=== PATIENT | female | born 1950 | race Caucasian/White ===

== ENCOUNTER → 2016-06-09 | Outpatient (CLI) | payer BC ==
[~2016-06-09] MED LIST: CHLR10C; CLD600T; ESCT10T; ESTROGCO.3; MULT1TAB63
--- NOTE | 2016-06-12 18:39 | Diagnostic Imaging Report ---
Bilateral screening mammogram The current study was also evaluated with a Computer Aided Detection (CAD) system. Indication: Screening. No current complaints stated on the questionnaire. COMPARISON: 04/16/12. FINDINGS: The breasts are composed of scattered fibroglandular densities. Bilateral retroglandular symmetric implants are seen without change from the prior exam. There are occasional punctate calcifications seen. Allowing for technique and positional differences, no suspicious change is seen. IMPRESSION: No significant change. ACR BI-RADS Category 2: Benign findings. Result letter will be mailed to the patient. Note: At least 10% of breast cancer is not imaged by mammography. Dictated by: Dictated on workstation # [id number]
== END ==
LOC: RAD 09:53
PROVIDERS: ATTEND Internal Medicine
DX: Z12.31 Encounter for screening mammogram for malignant neoplasm of breast (principal)
CPT/HCPCS: 77067

== ENCOUNTER → 2016-11-30 | Outpatient (CLI) | payer BC ==
[2016-11-30 08:42] LABS: BASOPHILS % (AUTO) 0 % (0-10); EOSINOPHILS # (AUTO) 0.2 10^3/uL (0.0-0.3); EOSINOPHILS % (AUTO) 3 % (0-10); LYMPHOCYTES # (AUTO) 1.8 X 10^3 (1.0-4.0); LYMPHOCYTES % (AUTO) 28 % (12-44); MEAN CORPUSCULAR HEMOGLOBIN 32 PG (25-34); MEAN CORPUSCULAR HGB CONC 33 G/DL (32-36); MEAN CORPUSCULAR VOLUME 98 FL (80-99); MEAN PLATELET VOLUME 10.5 FL (7.4-10.4); MONOCYTES # (AUTO) 0.5 X 10^3 (0.0-1.0); MONOCYTES % (AUTO) 7 % (0-12); NEUTROPHILS # (AUTO) 4.2 X 10^3 (1.8-7.8); NEUTROPHILS % (AUTO) 63 % (42-75); PLATELET COUNT 323 10^3/uL (130-400); RED BLOOD COUNT 4.14 10^6/uL (4.35-5.85); RED CELL DISTRIBUTION WIDTH 13.7 % (10.0-14.5); WHITE BLOOD COUNT 6.7 10^3/uL (4.3-11.0)
[2016-11-30 09:02] LABS: ALANINE AMINOTRANSFERASE 33 U/L (0-55); ANION GAP 8 MMOL/L (5-14); ASPARTATE AMINO TRANSFERASE 21 U/L (5-34); BILIRUBIN,TOTAL 0.4 MG/DL (0.1-1.0); BLOOD UREA NITROGEN 15 MG/DL (7-18); BUN/CREATININE RATIO 19; CARBON DIOXIDE 26 MMOL/L (21-32); CHLORIDE 104 MMOL/L (98-107); CHOLESTEROL 249 MG/DL (< 200); CREATININE SERUM 0.81 MG/DL (0.60-1.30); DIRECT LDL 157 MG/DL (1-129); GFR ESTIMATED > 60; GLUCOSE 109 MG/DL (70-105); POTASSIUM 4.4 MMOL/L (3.6-5.0); SODIUM 138 MMOL/L (135-145); TOTAL PROTEIN 7.8 GM/DL (6.4-8.2); TRIGLYCERIDES 120 MG/DL (<150); VLDL CHOLESTEROL 24 MG/DL (5-40)
[2016-11-30 09:23] LABS: THYROID STIMULATING HORMONE 1.83 UIU/ML (0.35-4.94)
== END ==
LOC: LAB 08:20
PROVIDERS: ATTEND Internal Medicine
DX: E78.00 Pure hypercholesterolemia, unspecified (principal); E03.9 Hypothyroidism, unspecified; R73.9 Hyperglycemia, unspecified
CPT/HCPCS: 36415; 80053; 80061; 83036; 84439; 84443; 85025

== ENCOUNTER → 2017-05-10 | Outpatient (CLI) | payer BC ==
[2017-05-10 15:40] LABS: BILIRUBIN,URINE NEGATIVE (NEGATIVE); CLARITY,URINE CLEAR; COLOR,URINE YELLOW; GLUCOSE, URINE (UA) NEGATIVE (NEGATIVE); KETONES,URINE NEGATIVE (NEGATIVE); LEUKOCYTE ESTERASE ,URINE 1+ (NEGATIVE); NITRITE,URINE NEGATIVE (NEGATIVE); PH,URINE 5 (5-9); PROTEIN,URINE NEGATIVE (NEGATIVE); UROBILINOGEN,URINE NORMAL (NORMAL)
[2017-05-10 15:42] LABS: BASOPHILS % (AUTO) 0 % (0-10); EOSINOPHILS # (AUTO) 0.1 10^3/uL (0.0-0.3); EOSINOPHILS % (AUTO) 1 % (0-10); HEMATOCRIT 40 % (35-52); HEMOGLOBIN 13.4 G/DL (11.5-16.0); LYMPHOCYTES # (AUTO) 2.7 X 10^3 (1.0-4.0); LYMPHOCYTES % (AUTO) 27 % (12-44); MEAN CORPUSCULAR HEMOGLOBIN 33 PG (25-34); MEAN CORPUSCULAR HGB CONC 34 G/DL (32-36); MEAN CORPUSCULAR VOLUME 97 FL (80-99); MEAN PLATELET VOLUME 10.3 FL (7.4-10.4); MONOCYTES # (AUTO) 0.8 X 10^3 (0.0-1.0); MONOCYTES % (AUTO) 8 % (0-12); NEUTROPHILS # (AUTO) 6.5 X 10^3 (1.8-7.8); NEUTROPHILS % (AUTO) 64 % (42-75); PLATELET COUNT 289 10^3/uL (130-400); RED CELL DISTRIBUTION WIDTH 12.8 % (10.0-14.5); WHITE BLOOD COUNT 10.1 10^3/uL (4.3-11.0)
[2017-05-10 15:49] LABS: AMORPHOUS SEDIMENT,UR RARE AMOR URATES /LPF; BACTERIA,URINE FEW /HPF
[2017-05-10 15:59] LABS: ALANINE AMINOTRANSFERASE 25 U/L (0-55); ALBUMIN 4.2 GM/DL (3.2-4.5); ALKALINE PHOSPHATASE 61 U/L (40-136); BILIRUBIN,TOTAL 0.2 MG/DL (0.1-1.0); BUN/CREATININE RATIO 19; CALCIUM 9.4 MG/DL (8.5-10.1); CARBON DIOXIDE 23 MMOL/L (21-32); CHLORIDE 103 MMOL/L (98-107); CREATININE SERUM 0.95 MG/DL (0.60-1.30); GFR ESTIMATED 58; GLUCOSE 94 MG/DL (70-105); POTASSIUM 3.9 MMOL/L (3.6-5.0); SODIUM 137 MMOL/L (135-145); TOTAL PROTEIN 8.1 GM/DL (6.4-8.2)
[2017-05-10 16:03] LABS: ERYTHROCYTE SEDIMENTATION RATE 29 MM/HR (0-30)
== END ==
LOC: CARD 15:12
PROVIDERS: ATTEND Internal Medicine
DX: R07.9 Chest pain, unspecified (principal); G89.29 Other chronic pain; M54.9 Dorsalgia, unspecified; R50.9 Fever, unspecified
CPT/HCPCS: 36415; 80053; 81000; 84484; 85025; 85652; 93005

== ENCOUNTER → 2017-05-24 | Outpatient (CLI) | payer BC ==
[~2017-05-24] MED LIST changes: +BARIUM SUSPENSION 2.1% (VANILLA SILQ) 450 ML PO ONE; +CATHETER FLUSH 10 ML SYR IV PRN; +IOHEXOL 350 MG/ML 100 ML (OMNIPAQUE 350) VIAL IV ONE; +NS 100 ML (IVPB) BAG IV ONE
[2017-05-24 12:57] LABS: BASOPHILS % (AUTO) 0 % (0-10); EOSINOPHILS # (AUTO) 0.1 10^3/uL (0.0-0.3); EOSINOPHILS % (AUTO) 1 % (0-10); HEMATOCRIT 40 % (35-52); HEMOGLOBIN 13.5 G/DL (11.5-16.0); LYMPHOCYTES # (AUTO) 2.6 X 10^3 (1.0-4.0); LYMPHOCYTES % (AUTO) 33 % (12-44); MEAN CORPUSCULAR HEMOGLOBIN 33 PG (25-34); MEAN CORPUSCULAR HGB CONC 34 G/DL (32-36); MEAN CORPUSCULAR VOLUME 96 FL (80-99); MEAN PLATELET VOLUME 10.4 FL (7.4-10.4); MONOCYTES # (AUTO) 0.6 X 10^3 (0.0-1.0); MONOCYTES % (AUTO) 8 % (0-12); NEUTROPHILS # (AUTO) 4.4 X 10^3 (1.8-7.8); NEUTROPHILS % (AUTO) 57 % (42-75); PLATELET COUNT 304 10^3/uL (130-400); RED BLOOD COUNT 4.11 10^6/uL (4.35-5.85); WHITE BLOOD COUNT 7.7 10^3/uL (4.3-11.0)
[2017-05-24 13:16] LABS: ALANINE AMINOTRANSFERASE 29 U/L (0-55); ALBUMIN 4.1 GM/DL (3.2-4.5); ALKALINE PHOSPHATASE 56 U/L (40-136); BILIRUBIN,TOTAL 0.2 MG/DL (0.1-1.0); BUN/CREATININE RATIO 30; CALCIUM 9.9 MG/DL (8.5-10.1); CARBON DIOXIDE 21 MMOL/L (21-32); CHLORIDE 104 MMOL/L (98-107); CREATININE SERUM 0.81 MG/DL (0.60-1.30); GFR ESTIMATED > 60; GLUCOSE 99 MG/DL (70-105); POTASSIUM 4.1 MMOL/L (3.6-5.0); SODIUM 137 MMOL/L (135-145); TOTAL PROTEIN 7.9 GM/DL (6.4-8.2)
[2017-05-24 13:18] LABS: ERYTHROCYTE SEDIMENTATION RATE 29 MM/HR (0-30)
--- NOTE | 2017-05-24 14:37 | Diagnostic Imaging Report ---
PROCEDURE: CT abdomen and pelvis with contrast. TECHNIQUE: Multiple contiguous axial images were obtained through the abdomen and pelvis after administration of intravenous contrast. INDICATION: Generalized abdominal pain and low back pain. Comparison is made with prior CT from 06/04/2012. Lung bases are clear. No discrete liver mass is identified. Gallbladder is unremarkable. The pancreas and spleen are unremarkable. No adrenal mass is detected. The kidneys are unremarkable. Aorta is nonaneurysmal. The small and large bowel loops are normal caliber. There is no ascites. No abdominal or pelvic lymphadenopathy is seen. The bladder is unremarkable. The bony structures are nonacute. There is a tiny fat-containing umbilical hernia. IMPRESSION: Essentially unremarkable CT of the abdomen and pelvis. No acute feature is detected. Dictated by: Dictated on workstation # [id number]
== END ==
LOC: RAD 12:37
PROVIDERS: ATTEND Internal Medicine
DX: R10.84 Generalized abdominal pain (principal); M54.5 Low back pain; Z87.19 Personal history of other diseases of the digestive system
CPT/HCPCS: 36415; 74177; 80053; 85025; 85652

== ENCOUNTER → 2017-06-22 | Outpatient (CLI) | payer BC ==
[~2017-06-22] MED LIST changes: -BARIUM SUSPENSION 2.1% (VANILLA SILQ) 450 ML PO ONE; -IOHEXOL 350 MG/ML 100 ML (OMNIPAQUE 350) VIAL IV ONE; -NS 100 ML (IVPB) BAG IV ONE
[2017-06-22 08:03] VITALS: BP 154/99
--- NOTE | 2017-06-22 19:55 | STRESS TEST ---
DATE OF SERVICE: 06/22/2017 PROCEDURE PERFORMED: Resting and post-exercise technetium-99m Tetrofosmin SPECT CT imaging. ORDERING PHYSICIAN: Tanesha Garner DO. PRIMARY CARE PHYSICIAN: Tanesha Garner DO. CLINICAL DIAGNOSIS: Chest pain. Baseline images were carried out after injection of 10.72 mCi technetium-99m Tetrofosmin. This was followed by exercise on a treadmill. Heart rate response to exercise was normal. Blood pressure responses to exercise was hypertensive. There were isolated premature ventricular contractions at rest and in the recovery phase, but were not seen during the exercise phase. After the patient had attained 85% of maximum predicted heart rate, 30.7 mCi technetium-99m Tetrofosmin were injected and the exercise was continued for another minute. This portion of the study was carried out under 's supervision and is reported separately by her. Review of images at rest and following stress indicates a small transient basal anterior perfusion defect. Gated images show normal global systolic function and normal regional wall motion. Left ventricular ejection fraction is calculated to be 68%. Left ventricular end diastolic volume is 43 mL. TID is absent (1.17). CONCLUSIONS: 1. This study is suggestive of a small amount of basal anterior ischemia. 2. Normal regional wall motion. 3. Normal global left ventricular systolic function with a calculated ejection fraction of 68%. Job ID: [id number] DocumentID: [id number] Dictated Date: 06/22/2017 14:26:04 [employer] Date: 06/22/2017 19:54:20 Dictated By: DEION BURK MD, MA, FACP, FACC,
== END ==
LOC: CARD 06:50
PROVIDERS: ATTEND Internal Medicine
DX: R07.9 Chest pain, unspecified (principal)
CPT/HCPCS: 78452; 93017; 93306

== ENCOUNTER 2017-07-10 06:58 | Day surgery (SDC) | payer MEDICARE, BC ==
[~2017-07-10] VITALS: Ht 170.2 cm; Wt 99.8 kg
[2017-07-10] VITALS (10 sets, daily range): BP systolic 125–178; BP diastolic 70–89
[~2017-07-10 06:58] MED LIST changes: -CATHETER FLUSH 10 ML SYR IV PRN
[2017-07-10] MEDS ORDERED: NS IV 1000 ML 1,000 ML ONE (07:01)
[2017-07-10] MEDS ORDERED: HEParin (CATH LAB) 2,000 ML IV ONE (07:01)
--- OUTSIDE RECORDS SUMMARY | 2017-07-10 07:04 | XMS REPORT | Clinical Summary ---
Author Author User, [employer] Organization [facility] [place] Address Unknown Phone Unavailable Allergies, Adverse Reactions, Alerts Allergy Name Reaction Description Start Date Severity Status Provider No Known Allergies Varsha Roque Conditions or Problems Problem Name Problem Code Onset Date Status Entry Date Provider Comment Standard Description Annotate WELL WOMAN V70.0 Resolved Tanesha Garner Routine general medical examination at a [facility] care facility DEPRESSION 311 Active Tanesha Garner Depressive disorder, not elsewhere classified FATIGUE 780.79 Resolved Tanesha Garner Other malaise and fatigue ANXIETY 300.00 Resolved Tanesha Garner Anxiety state, unspecified ANEMIA 285.9 Resolved Tanesha Garner Anemia, unspecified INSOMNIA, CHRONIC 780.52 Resolved Tanesha Garner Insomnia, unspecified DERMATITIS 692.9 Resolved Tanesha Garner Contact dermatitis and other eczema, unspecified cause PRURITUS 698.9 Resolved Tanesha Garner Unspecified pruritic disorder SHOULDER PAIN 719.41 Resolved Tanesha Garner Pain in joint involving shoulder region WEIGHT GAIN, ABNORMAL 783.1 Active Tanesha Garner Abnormal weight gain ALCOHOL ABUSE 305.00 Active Tanesha Garner Alcohol abuse, unspecified drinking behavior HYPERCHOLESTEROLEMIA 272.0 Active Tanesha Garner Pure hypercholesterolemia SCREENING FOR OSTEOPOROSIS V82.81 Resolved Tanesha Garner Screening for osteoporosis SCREENING MAMMOGRAM NEC V76.12 Resolved Tanesha Garner Other screening mammogram ACHILLES TENDINITIS, MILD 726.71 Resolved Tanesha Garner Achilles bursitis or tendinitis right POLYARTHRALGIA 719.49 Resolved Tanesha Garner Pain in joint involving multiple sites HEADACHE, ATYPICAL 784.0 Resolved Tanesha Garner Headache DIZZINESS 780.4 Resolved Tanesha Garner Dizziness and giddiness OSTEOARTHRITIS 715.90 Active Tanesha Garner Osteoarthrosis, unspecified whether generalized or localized, involving unspecified site ABDOMINAL PAIN, RECURRENT 789.00 Resolved Tanesha Garner Abdominal pain, unspecified site OSTEOPENIA 733.90 Resolved Tanesha Garner Disorder of bone and cartilage, unspecified ABDOMINAL PAIN, GENERALIZED 789.07 Resolved Tanesha Garner Abdominal pain, generalized DIVERTICULITIS OF COLON 562.11 Resolved Tnaesha Garner Diverticulitis of colon without mention of hemorrhage DYSPNEA 786.09 Resolved Tanesha Garner Other dyspnea and respiratory abnormality HYPERTENSION 401.1 Active Tanesha Garner Benign essential hypertension HYPERSOMNIA 780.54 Active Tanesha Garner Hypersomnia, unspecified NONSPECIFIC ABNORMAL UNSPEC CV FUNCTION STUDY 794.30 Resolved Tanesha Garner Nonspecific abnormal function study, cardiovascular, unspecified ABDOMINAL PAIN, LEFT LOWER QUADRANT 789.04 Resolved Tanesha Garner Abdominal pain, left lower quadrant DIVERTICULITIS, ACUTE 562.11 Resolved Tanesha Garner Diverticulitis of colon without mention of hemorrhage TRANSAMINASES, SERUM, ELEVATED 790.4 Resolved Tanesha Garner Nonspecific elevation of levels of transaminase or lactic acid dehydrogenase [LDH] ESR, ELEVATED 790.1 Resolved Tanesha Garner Elevated sedimentation rate CERUMEN IMPACTION, BILATERAL 380.4 Resolved Tanesha Garner Impacted cerumen DIVERTICULOSIS, COLON 562.10 Resolved Tanesha Garner Diverticulosis of colon (without mention of hemorrhage) NAUSEA 787.02 Resolved Tanesha Garner Nausea alone OTITIS EXTERNA 380.10 Resolved Tanesha Garner Infective otitis externa, unspecified HEALTH SCREENING V70.0 Resolved Tanesha Garner Routine general medical examination at a [facility] care facility DIVERTICULITIS, ACUTE 562.11 Resolved Tanesha Garner Diverticulitis of colon without mention of hemorrhage MIGRAINE VARIANT 346.20 Resolved Tanesha Garner Variants of migraine, not elsewhere classified, without mention of intractable migraine, without mention of status migrainosus CELLULITIS 682.9 Inactive Tanesha Garner Cellulitis and abscess of unspecified sites DIVERTICULITIS, ACUTE 562.11 Resolved Tanesha Garner Diverticulitis of colon without mention of hemorrhage URI 465.9 Resolved Tanesha Garner Acute upper respiratory infections of unspecified site JAW PAIN 526.9 Resolved Tanesha Garner Unspecified disease of the jaws KNEE PAIN 719.46 Resolved Tanesha Garner Pain in joint involving lower leg HERPES ZOSTER, GENICULATE 053.11 Active Tanesha Garner Geniculate herpes zoster OTITIS MEDIA 382.9 Resolved Tanesha Garner Unspecified otitis media LIVER FUNCTION TESTS, ABNORMAL 794.8 Resolved Tanesha Garner Nonspecific abnormal results of function study of liver WELL WOMAN V70.0 Resolved Tanesha Garner Routine general medical examination at a [facility] care facility GERD 530.81 Active Tanesha Garner Esophageal reflux ABDOMINAL PAIN, GENERALIZED 789.07 Active Tanesha Garner Abdominal pain, generalized Medication List Medication Instructions Start Date Stop Date Generic Name NDC Status Provider Patient Instruction BUSPIRONE HCL 10 MG TABS 1 PO QHS BUSPIRONE HCL 36408746822 Active Sarah Mayers ZOVIRAX 5 % CREA APPLY TO AFFECTED AREAS BID PRN ACYCLOVIR 88653465270 No Longer Active Tanesha Garner ULTRAM 50 MG TAB 1 PO TID prn TRAMADOL HCL 68717049103 No Longer Active Tanesha Garner LYRICA 75 MG CAPS 1 PO BID PREGABALIN 46163784942 No Longer Active Tanesha Garner BUSPIRONE HCL 10 MG TABS 1 PO BID prn BUSPIRONE HCL 68665279450 No Longer Active Tanesha Garner OMEPRAZOLE 40 MG CPDR 1 PO daily every morning on empty stomach. OMEPRAZOLE 51847569829 Active Sarah Mayers TRIAMCINOLONE ACETONIDE 0.1 % CREA apply BID to affected area on back until resolved. TRIAMCINOLONE ACETONIDE (TOP) 20675101153 No Longer Active Tanesha Garner LIDOCAINE 5 % PTCH Apply one patch Q12 hours prn to affected area LIDOCAINE 89604291766 No Longer Active Taneshamegan Garner OXYCODONE HCL 10 MG TABS 1 PO TID prn severe pain OXYCODONE HCL 60549179722 No Longer Active Tanesha Becky Garner VALTREX 1 GM TAB 1 PO TID VALACYCLOVIR HCL 97380488361 No Longer Active Taneshamegan Garner LIDOCAINE VISCOUS 2 % SOLN apply a small amount to the inside of mouth, allow to sit for 2 minutes and then spit out LIDOCAINE HCL 63029602276 No Longer Active Taneshamegan Garner ZOVIRAX 5 % CREA apply to affected areas BID prn until resolved ACYCLOVIR 63230237332 No Longer Active Taneshamegan Garner NAPROXEN 500 MG TAB 1 PO BID NAPROXEN 55706176802 No Longer Active Taneshamegan Garner AMOXICILLIN 500 MG CAP 1 PO TID AMOXICILLIN 13387856440 No Longer Active Sarah Mayers PROMETHAZINE VC/CODEINE 6.25-5-10 MG/5ML SYRP 1 teaspoon Q 4 hours prn 4 oz [id number] 00851008558 No Longer Active Taneshamegan Garner WELLBUTRIN XL 300 MG [id number] I PO DAILY ALONG WITH 150MG TABLET TO TOTAL 450MG DAILY BUPROPION HCL 52758241238 Active Sarah Mayers WELLBUTRIN XL 150 MG [id number] 1 PO DAILY ALONG WITH 300MG TO TOTAL 450MG DAILY BUPROPION HCL 79259636856 Active Sarah Mayers FLAGYL 500 MG TABS 1 PO TID METRONIDAZOLE 04413289855 No Longer Active Tanesha Becky Garner LEVAQUIN 500 MG TAB 1 PO QD LEVOFLOXACIN 67803534851 No Longer Active Tanesha Becky Garner PERCOCET 5-325 MG TAB 1 PO Q 6 hours prn OXYCODONE- ACETAMINOPHEN 35673836980 No Longer Active Tanesha Becky Garner PHENTERMINE HCL 37.5 MG CAPS 1 PO Daily PHENTERMINE HCL 82349837246 No Longer Active Tanesha Becky Garner PERCOCET 5-325 MG TAB 1-2 PO Q 6 hours OXYCODONE- ACETAMINOPHEN 28656753913 No Longer Active Tanesha Becky Garner KEFLEX 500 MG CAP 1 PO TID for 7 days CEPHALEXIN 41917513172 No Longer Active Tanesha Becky Garner ZOCOR 40 MG TABS 1 po daily SIMVASTATIN 15683841001 No Longer Active Tanesha Becky Garner MIRALAX POWD 1 scoop in 4oz of water PO TID as needed POLYETHYLENE GLYCOL 3350 32516137719 No Longer Active Tanesha Becky Garner LORTAB 5 5-500 MG TABS 1 to 2 PO Q6hrs prn ACETAMINOPHEN-HYDROCODONE 38317600318 No Longer Active Tanesha Becky Garner PERCOCET 5-325 MG TAB 1 PO Q 6 hours OXYCODONE- ACETAMINOPHEN 79744808647 No Longer Active Tanesha Becky Garner ASPIRIN 81 MG TAB 2 PO daily ASPIRIN 04486771814 No Longer Active Tanesha Becky Garner COLACE CAPS 2 po BID DOCUSATE SODIUM CAPS 92391450083 No Longer Active Tanesha Becky Garner OCUFLOX 0.3 % SOLN 2 drops left ear TID for 7 days OFLOXACIN 06714643686 No Longer Active Tanesha Becky Garner FLAGYL 500 MG TABS 1 po TID METRONIDAZOLE 79308892152 No Longer Active Tanesha Becky Garner LEVAQUIN 500 MG TABS 1 po daily for 7 days LEVOFLOXACIN 88355477320 No Longer Active Tanesha Becky Garner VALIUM 2 MG TAB 1/2 to 1 PO Q6hrs prn DIAZEPAM 52266997888 No Longer Active Tanesha Becky LEXAPRO 20 MG TABS 2 PO daily ESCITALOPRAM OXALATE 89005396741 No Longer Active Tanesha Becky Garner WELLBUTRIN 75 MG TABS 1 PO BID for 1 month. Then change to Welbutrin XL 150 mg daily. BUPROPION HCL 03942240374 No Longer Active Tanesha Becky Garner COLACE 60 MG/15ML SYRP 2 drops in each ear, let stand for 5 mintues then rinse with water for 1 week. (Please provide bottle with dropper) DOCUSATE SODIUM 62650371448 No Longer Active Tanesha Becky Garner FLAGYL 500 MG TABS 1 PO TID for 7 days METRONIDAZOLE 00474824981 No Longer Active Tanesha Becky Patsy LEVAQUIN 500 MG TAB 1 PO QD LEVOFLOXACIN 04505685338 No Longer Active Tanesha Becky Garner CHANTIX STARTING MONTH MAGGIE 0.5 MG X 11 & 1 MG X 14 MISC as directed VARENICLINE TARTRATE 91016790878 No Longer Active Tanesha Becky Garner LIBRIUM 10 MG CAPS 1 PO TID prn tremors CHLORDIAZEPOXIDE HCL 23294032935 No Longer Active Tanesha Becky Garner ROBITUSSIN A-C 10-100 MG/5ML SYRUP 1 teaspoon PO Q 4-6 hr prn ROBITUSSIN A-C 10-100 MG/5ML SYRUP 46314374141 No Longer Active Z Z AUGMENTIN 500-125 MG TAB 1 PO BID AMOXICILLIN-POT CLAVULANATE 53064292187 No Longer Active Z Z VOLTAREN-XR 100 MG TB24 1 PO daily DICLOFENAC SODIUM 52684034337 No Longer Active Tanesha Becky Garner EFFEXOR XR 75 MG CP24 1 PO QD (take after completing 37.5mg daily for 7 days) VENLAFAXINE HCL 09460924705 No Longer Active Tanesha Becky Garner EFFEXOR XR 37.5 MG CP24 1 PO daily for 7 days and then take the 75mg dose VENLAFAXINE HCL 70939121397 No Longer Active Tanesha Becky Garner SKELAXIN 800 MG TABS 1 PO TID prn METAXALONE 13094450598 No Longer Active Tanesha Becky Garner LORTAB 5 5-500 MG TABS 1 PO Qhrs prn pain ACETAMINOPHEN-HYDROCODONE 59431502371 No Longer Active Tanesha Becky Garner PREMARIN 0.3 MG TABS 1 PO daily ESTROGENS CONJUGATED 08776484057 Active Sarah Becktis FLEXERIL 10 MG TAB 1 PO TID for neck muscle spasm CYCLOBENZAPRINE HCL 00105438687 No Longer Active Sarah Mayers KENALOG 0.5 % CREA Apply BID prn affected areas TRIAMCINOLONE ACETONIDE 98603698386 No Longer Active Taneshamegan Garner CALCIUM + D 400-133.3 MG-IU TABS 1 PO BID CALCIUM CARBONATE-VITAMIN D 61993498305 Active Tanesha Becky Garner CYMBALTA 60 MG CPEP 1 PO daily DULOXETINE HCL 16765069856 No Longer Active Taneshamegan Garner PHENTERMINE HCL 37.5 MG TABS 1 PO QD PHENTERMINE HCL 28601895515 No Longer Active Tanesha Becky Garner VALIUM 2 MG TAB 1 PO once before MRI DIAZEPAM 42612858423 No Longer Active Tanesha Becky Garner KENALOG 0.5 % CREA apply sparingly bid x 7days TRIAMCINOLONE ACETONIDE (TOP) 86808855045 No Longer Active Tanesha Becky MULTIVITAMINS TABS 1 tab po daily MULTIPLE VITAMIN 72798665299 Active Tanesha Garner CELEXA 40 MG TABS 1 po daily CITALOPRAM HYDROBROMIDE 74424651013 No Longer Active Tanesha Garner Vital Signs Date Name Value Unit Range Description blood pressure, diastolic - 8462-4 80 mm[Hg] BP saez blood pressure, systolic - 8480-6 112 mm[Hg] BP sys pulse rate E&M - 8867-4 72 /min Heart rate respiratory rate E&M - 9279-1 14 /min Resp rate temperature E&M 97.7 [degF] Body temperature weight E&M - 3141-9 187 [lb_av] Weight Measured Diagnostic Results Date Name Value Unit Range Description Clinical Lists Update: CBC,CMP,FLP,TSH,ESR - Chemistry albumin, serum 3.9 g/dL Estimated Glomerular Filtration Rate (calc) >60 mL/min/1.73m2 urea nitrogen, blood 17 mg/dL calcium, serum 9.5 mg/dL chloride, serum 105 mmol/L cholesterol, serum 211 mg/dL carbon dioxide, venous blood 26 mmol/L creatinine, serum 0.78 mg/dL HDL cholesterol, serum 72 mg/dL thyroid stimulating hormone, serum 4.07 u[iU]/mL LDL cholesterol, serum 116 mg/dL potassium, serum 4.0 mmol/L protein, total, serum 7.4 g/dL aspartate aminotransferase (SGOT), serum 16 U/L alanine aminotransferase (SGPT), serum 16 U/L bilirubin, serum, total 0.3 mg/dL triglyceride, serum, fasting 96 mg/dL sodium, serum 140 mmol/L very low density lipoproteins 19 mg/dL glucose, plasma fasting 103 mg/dL alkaline phosphatase, serum 45 U/L Clinical Lists Update: CBC,CMP,FLP,TSH,ESR - Hematology hematocrit, blood 39 % erythrocyte sedimentation rate 28 mm/h hemoglobin, blood 13.0 g/dL platelet count 297 10*3/mm3 erythrocyte (RBC) count 3.95 10*6/mm3 leukocyte count, blood 6.2 10*3/mm3 mean corpuscular volume, RBC 98 fL red blood cell distribution width 13.0 % Clinical Lists Update: CMP,CHOL,TRIG,TSH,FREE T4,HGA1C - Chemistry thyroxine, serum, free 0.92 ng/dL albumin, serum 3.9 g/dL thyroid stimulating hormone, serum 2.87 u[iU]/mL potassium, serum 4.0 mmol/L protein, total, serum 6.8 g/dL aspartate aminotransferase (SGOT), serum 13 U/L alanine aminotransferase (SGPT), serum 14 U/L bilirubin, serum, total 0.5 mg/dL triglyceride, serum, fasting 72 mg/dL sodium, serum 142 mmol/L glucose, plasma fasting 100 mg/dL Estimated Glomerular Filtration Rate (calc) >60 mL/min/1.73m2 creatinine, serum 0.77 mg/dL carbon dioxide, venous blood 26 mmol/L cholesterol, serum 214 mg/dL chloride, serum 108 mmol/L calcium, serum 9.4 mg/dL urea nitrogen, blood 17 mg/dL alkaline phosphatase, serum 44 U/L hemoglobin A1C, blood, as % of total hemoglobin 5.7 % Encounters Code Encounter Date Provider Facility CPT-83076 Ofc Vst, Est Level IV 16:01:23 SLEEP TECH Tanesha Sánchez , DO, FACP CPT-28387 Ofc Vst, Est Level IV 13:34:38 CDT Tanesha Becky Sánchez , DO, FACP CPT-82227 Ofc Vst, Est Level IV 19:29:03 CDT Taneshamegan Sánchez , DO, FACP CPT-22372 Ofc Vst, Est Level III 15:32:53 SLEEP TECH Tanesha Sánchez , DO, FACP CPT-42018 Ofc Vst, Est Level III 20:30:14 SLEEP TECH Tanesha Sánchez , DO, FACP CPT-69220 Ofc Vst, Est Level III 15:15:34 SLEEP TECH Tanesha Sánchez , DO, FACP CPT-82063 Ofc Vst, Est Level IV 15:43:13 CDT Taneshamegan Sánchez , DO, FACP CPT-06438 Ofc Vst, Est Level III 15:43:11 CDT Taneshamegan [facility] CPT-22476 Ofc Vst, Est Level IV 20:39:52 SLEEP TECH Tanesha Sánchez , DO, FACP CPT-99549 Ofc Vst, Est Level III 14:07:52 SLEEP TECH Tanesha Becky Sánchez , DO, FACP CPT-18117 Ofc Vst, Est Level IV 14:49:29 CDT Tanesha Becky Sánchez , DO, FACP CPT-36979 Ofc Vst, Est Level III 15:48:52 SLEEP TECH Tanesha Becky Sánchez , DO, FACP CPT-65150 Ofc Vst, Est Level III 13:44:15 CDT Taneshamegan Sánchez , DO, FACP CPT-45529 Ofc Vst, Est Level IV 10:32:53 CDT Taneshamegan Sánchez Patsy, DO, FACP CPT-50645 Ofc Vst, Est Level IV 11:02:10 CDT Tanesha Becky Sánchez Patsy, DO, FACP CPT-40999 Ofc Vst, Est Level III 11:21:28 CDT Taneshamegan Sánchez Patsy, DO, FACP CPT-05016 Ofc Vst, Est Level IV 11:05:01 CDT Taneshamegan Garner [facility] CPT-53335 Ofc Vst, Est Level IV 10:10:08 CDT Taneshamegan Sánchez Patsy, DO, FACP CPT-92879 Ofc Vst, Est Level V 10:20:21 CDT Taneshamegan Sánchez Patsy, DO, FACP CPT-47138 Ofc Vst, Est Level IV 16:15:55 CDT Taneshamegan Garner [facility] CPT-27848 Ofc Vst, Est Level IV 15:03:32 CDT Taneshamegan Garner [facility] CPT-43523 Ofc Vst, Est Level IV 10:27:21 CDT Taneshamegan Sánchez Patsy, DO, FACP CPT-99021 Ofc Vst, Est Level V 14:40:16 CDT Taneshamegan Garner [facility] CPT-75487 Ofc Vst, Est Level IV 14:18:38 CDT Taneshamegan Garner [facility] CPT-85197 Ofc Vst, Est Level IV 10:48:56 SLEEP TECH Tanesha Sánchez Patsy, DO, FACP CPT-01264 Ofc Vst, Est Level V 09:48:01 SLEEP TECH Tanesha Sánchez Patsy, DO, FACP CPT-34469 Ofc Vst, Est Level IV 17:03:21 CDT Tanesha Becky Garner, DO, FACP CPT-98140 Ofc Vst, Est Level IV 17:52:03 CDT Taneshamegan Garner DO, FACP CPT-49316 Ofc Vst, Est Level IV 13:00:15 CDT Tanesha Becky Garner [facility] [place] CPT-03943 Ofc Vst, Est Level IV 13:47:04 CDT Tanesha Becky Garner [facility] [place] CPT-49677 Ofc Vst, Est Level IV 14:43:32 SLEEP TECH Tanesha Garner [facility] [place] CPT-59308 Ofc Vst, Est Level III 18:50:40 CDT Tanesha Becky Garner [facility] [place] CPT-71877 Ofc Vst, Est Level IV 20:44:54 CDT Tanesha Becky Garner [facility] [place] CPT-93773 Ofc Vst, Est Level IV 15:04:35 CDT Tanesha Becky Garner [facility] [place] CPT-98888 Ofc Vst, Est Level IV 11:10:53 CDT Tanesha Becky Garner [facility] [place] CPT-47500 Ofc Vst, Est Level IV 10:39:12 SLEEP TECH Tanesha Garner [facility] [place] CPT-59719 Ofc Vst, Est Level III 10:16:51 CDT Taneshamegan Garner [facility] [place] CPT-62030 Ofc Vst, Est Level III 10:58:58 CDT Taneshamegan Garner [facility] [place] CPT-44564 Ofc Vst, Est Level IV 11:33:49 CDT Taneshamegan Garner [facility] [place] CPT-06112 Ofc Vst, Est Level III 20:26:07 SLEEP TECH Tanesha Garner [facility] [place] CPT-64663 Ofc Vst, Est Level II 18:37:20 CDT Tanesha Garner [facility] [place] CPT-72861 Ofc Vst, New Level III 18:05:22 CDT Tanesha Garner [facility] [place] Procedures Code Procedure Name Date Entry Date Standard Description CPT-29041 Preventive, Est, (40-64) 11:39:28 CDT CPT-25202 Preventive, Est, (40-64) 16:22:37 SLEEP TECH CPT-30531 Ear Wax Removal 11:13:33 CDT CPT-60218 EKG w/ Interpretation 14:40:16 CDT
--- OUTSIDE RECORDS SUMMARY | 2017-07-10 07:07 | XMS REPORT | Clinical Summary ---
Author Author User, [employer] Organization [facility] Address Unknown Phone Unavailable Allergies, Adverse Reactions, Alerts Allergy Name Reaction Description Start Date Severity Status Provider No Known Allergies Varsha Roque Conditions or Problems Problem Name Problem Code Onset Date Status Entry Date Provider Comment Standard Description Annotate WELL WOMAN V70.0 Resolved Tanesha Garner Routine general medical examination at a [facility] DEPRESSION 311 Active Tanesha Garner [...] pain, generalized DIVERTICULITIS OF COLON 562.11 Resolved Tanesha Garner Diverticulitis of colon [...] Garner Routine general medical examination at a [facility] DIVERTICULITIS, ACUTE 562.11 Resolved Tanesha [...] Garner Routine general medical examination at a health care facility GERD 530.81 Active Tanesha Garner Esophageal reflux ABDOMINAL PAIN, GENERALIZED 789.07 Active Tanesha Garner Abdominal pain, generalized HEALTH SCREENING V70.0 Active Tanesha Garner Routine general medical examination at a [facility] Medication List Medication Instructions Start Date Stop Date Generic Name NDC Status Provider Patient Instruction CVS MELATONIN 3 MG TABS 1 po QHS MELATONIN 42612030279 Active Tanesha Garner BUSPIRONE HCL 10 MG TABS 1 PO QHS BUSPIRONE HCL 67314188398 Active Sarah Mayers ZOVIRAX 5 % CREA APPLY TO AFFECTED AREAS BID PRN ACYCLOVIR 22157189583 No Longer Active Tanesha Garner ULTRAM 50 MG TAB 1 PO TID prn TRAMADOL HCL 29102549230 No Longer Active Tanesha Garner LYRICA 75 MG CAPS 1 PO BID PREGABALIN 17557023749 No Longer Active Tanesha Garner BUSPIRONE HCL 10 MG TABS 1 PO BID prn BUSPIRONE HCL 95495391252 No Longer Active Tanesha Garner OMEPRAZOLE 40 MG CPDR 1 PO daily every morning on empty stomach. OMEPRAZOLE 99359206576 Active Sarah Maeyrs TRIAMCINOLONE ACETONIDE 0.1 % CREA apply BID to affected area on back until resolved. TRIAMCINOLONE ACETONIDE (TOP) 34215121870 No Longer Active Taneshamegan Garner LIDOCAINE 5 % PTCH Apply one patch Q12 hours prn to affected area LIDOCAINE 57283653504 No Longer Active Taneshamegan Garner OXYCODONE HCL 10 MG TABS 1 PO TID prn severe pain OXYCODONE HCL 07381967058 No Longer Active Tanesha Becky Garner VALTREX 1 GM TAB 1 PO TID VALACYCLOVIR HCL 05603538327 No Longer Active Tanesha Garner LIDOCAINE VISCOUS 2 % SOLN apply a small amount to the inside of mouth, allow to sit for 2 minutes and then spit out LIDOCAINE HCL 84274426597 No Longer Active Taneshamegan Garner ZOVIRAX 5 % CREA apply to affected areas BID prn until resolved ACYCLOVIR 15369640626 No Longer Active Taneshamegan Garner NAPROXEN 500 MG TAB 1 PO BID NAPROXEN 75273552897 No Longer Active Taneshamegan Garner AMOXICILLIN 500 MG CAP 1 PO TID AMOXICILLIN 06299539810 No Longer Active Sarah Mayers PROMETHAZINE VC/CODEINE 6.25-5-10 MG/5ML SYRP 1 teaspoon Q 4 hours prn 4 oz [id number] 09058041568 No Longer Active Taneshamegan Garner WELLBUTRIN XL 300 MG [id number] I PO DAILY ALONG WITH 150MG TABLET TO TOTAL 450MG DAILY BUPROPION HCL 81356596303 Active Sarah Mayers WELLBUTRIN XL 150 MG [id number] 1 PO DAILY ALONG WITH 300MG TO TOTAL 450MG DAILY BUPROPION HCL 00800301951 Active Sarah Mayers FLAGYL 500 MG TABS 1 PO TID METRONIDAZOLE 75635793361 No Longer Active Tanesha Becky Garner LEVAQUIN 500 MG TAB 1 PO QD LEVOFLOXACIN 92006873821 No Longer Active Tanesha Becky Garner PERCOCET 5-325 MG TAB 1 PO Q 6 hours prn OXYCODONE- ACETAMINOPHEN 22938021397 No Longer Active Tanesha Becky Garner PHENTERMINE HCL 37.5 MG CAPS 1 PO Daily PHENTERMINE HCL 39103477034 No Longer Active Tanesha Becky Garner PERCOCET 5-325 MG TAB 1-2 PO Q 6 hours OXYCODONE- ACETAMINOPHEN 94950751479 No Longer Active Tanesha Becky Garner KEFLEX 500 MG CAP 1 PO TID for 7 days CEPHALEXIN 38035939795 No Longer Active Tanesha Becky Garner ZOCOR 40 MG TABS 1 po daily SIMVASTATIN 69236143801 No Longer Active Tanesha Becky Garner MIRALAX POWD 1 scoop in 4oz of water PO TID as needed POLYETHYLENE GLYCOL 3350 34043666896 No Longer Active Tanesha Becky Garner LORTAB 5 5-500 MG TABS 1 to 2 PO Q6hrs prn ACETAMINOPHEN-HYDROCODONE 02609813489 No Longer Active Tanesha Becky Garner PERCOCET 5-325 MG TAB 1 PO Q 6 hours OXYCODONE- ACETAMINOPHEN 14593797416 No Longer Active Tanesha Becky Garner ASPIRIN 81 MG TAB 2 PO daily ASPIRIN 74647872470 No Longer Active Tanesha Becky Garner COLACE CAPS 2 po BID DOCUSATE SODIUM CAPS 05192975373 No Longer Active Tanesha Becky Garner OCUFLOX 0.3 % SOLN 2 drops left ear TID for 7 days OFLOXACIN 21911647552 No Longer Active Tanesha Becky Garner FLAGYL 500 MG TABS 1 po TID METRONIDAZOLE 15451487626 No Longer Active Tanesha Becky Garner LEVAQUIN 500 MG TABS 1 po daily for 7 days LEVOFLOXACIN 59724340408 No Longer Active Tanesha Becky Welchner VALIUM 2 MG TAB 1/2 to 1 PO Q6hrs prn DIAZEPAM 19597664386 No Longer Active Tanesha Becky LEXAPRO 20 MG TABS 2 PO daily ESCITALOPRAM OXALATE 16781282179 No Longer Active Tanesha Becky Welchner WELLBUTRIN 75 MG TABS 1 PO BID for 1 month. Then change to Welbutrin XL 150 mg daily. BUPROPION HCL 88237992615 No Longer Active Tanesha Becky Garner COLACE 60 MG/15ML SYRP 2 drops in each ear, let stand for 5 mintues then rinse with water for 1 week. (Please provide bottle with dropper) DOCUSATE SODIUM 03314716748 No Longer Active Tanesha Becky FLAGYL 500 MG TABS 1 PO TID for 7 days METRONIDAZOLE 80061002712 No Longer Active Tanesha Becky Welchner LEVAQUIN 500 MG TAB 1 PO QD LEVOFLOXACIN 32226008797 No Longer Active Tanesha Becky Garner CHANTIX STARTING MONTH MAGGIE 0.5 MG X 11 & 1 MG X 14 MISC as directed VARENICLINE TARTRATE 54647881367 No Longer Active Tanesha Becky Garner LIBRIUM 10 MG CAPS 1 PO TID prn tremors CHLORDIAZEPOXIDE HCL 85989478475 No Longer Active Tanesha Becky Garner ROBITUSSIN A-C 10-100 MG/5ML SYRUP 1 teaspoon PO Q 4-6 hr prn ROBITUSSIN A-C 10-100 MG/5ML SYRUP 67631425116 No Longer Active Z Z AUGMENTIN 500-125 MG TAB 1 PO BID AMOXICILLIN-POT CLAVULANATE 28481497786 No Longer Active Z Malcolm VOLTAREN-XR 100 MG TB24 1 PO daily DICLOFENAC SODIUM 07803069802 No Longer Active Taneshamegan Garner EFFEXOR XR 75 MG CP24 1 PO QD (take after completing 37.5mg daily for 7 days) VENLAFAXINE HCL 89412746103 No Longer Active Taneshamegan Garner EFFEXOR XR 37.5 MG CP24 1 PO daily for 7 days and then take the 75mg dose VENLAFAXINE HCL 00154229968 No Longer Active Taneshamegan Garner SKELAXIN 800 MG TABS 1 PO TID prn METAXALONE 87683195348 No Longer Active Tanesha Garner LORTAB 5 5-500 MG TABS 1 PO Qhrs prn pain ACETAMINOPHEN-HYDROCODONE 23909398729 No Longer Active Tanesha Garner PREMARIN 0.3 MG TABS 1 PO daily ESTROGENS CONJUGATED 09613776220 Active Sarah Mayers FLEXERIL 10 MG TAB 1 PO TID for neck muscle spasm CYCLOBENZAPRINE HCL 46496902236 No Longer Active Sarah Mayers KENALOG 0.5 % CREA Apply BID prn affected areas TRIAMCINOLONE ACETONIDE 35490590795 No Longer Active Tanesha Garner CALCIUM + D 400-133.3 MG-IU TABS 1 PO BID CALCIUM CARBONATE-VITAMIN D 65878445778 Active Taneshamegan Garner CYMBALTA 60 MG CPEP 1 PO daily DULOXETINE HCL 51267689417 No Longer Active Tanesha Garner PHENTERMINE HCL 37.5 MG TABS 1 PO QD PHENTERMINE HCL 89930202058 No Longer Active Tanesha Garner VALIUM 2 MG TAB 1 PO once before MRI DIAZEPAM 75421617237 No Longer Active Tanesha Welchner KENALOG 0.5 % CREA apply sparingly bid x 7days TRIAMCINOLONE ACETONIDE (TOP) 44676959087 No Longer Active Tanesha Welchner MULTIVITAMINS TABS 1 tab po daily MULTIPLE VITAMIN 29369686415 Active Tanesha Pena CELEXA 40 MG TABS 1 po daily CITALOPRAM HYDROBROMIDE 64690956160 No Longer Active Tanesha Garner Vital Signs Date Name Value Unit Range Description blood pressure, diastolic - 8462-4 78 mm[Hg] BP saez blood pressure, systolic - 8480-6 122 mm[Hg] BP sys pulse rate E&M - 8867-4 70 /min Heart rate respiratory rate E&M - 9279-1 14 /min Resp rate temperature E&M 98.6 [degF] Body temperature weight E&M - 3141-9 191 [lb_av] Weight Measured blood pressure, diastolic - 8462-4 80 mm[Hg] [...] Description Clinical Lists Update: CBC,CMP,FLP,TSH,ESR - Chemistry calcium, serum 9.5 mg/dL carbon dioxide, venous blood 26 mmol/L alanine aminotransferase (SGPT), serum 16 U/L creatinine, serum 0.78 mg/dL Estimated Glomerular Filtration Rate (calc) >60 mL/min/1.73m2 HDL cholesterol, serum 72 mg/dL bilirubin, serum, total 0.3 mg/dL glucose, plasma fasting 103 mg/dL triglyceride, serum, fasting 96 mg/dL albumin, serum 3.9 g/dL potassium, serum 4.0 mmol/L alkaline phosphatase, serum 45 U/L urea nitrogen, blood 17 mg/dL protein, total, serum 7.4 g/dL very low density lipoproteins 19 mg/dL sodium, serum 140 mmol/L chloride, serum 105 mmol/L aspartate aminotransferase (SGOT), serum 16 U/L cholesterol, serum 211 mg/dL LDL cholesterol, serum 116 mg/dL thyroid stimulating hormone, serum 4.07 u[iU]/mL Clinical Lists Update: CBC,CMP,FLP,TSH,ESR - Hematology erythrocyte sedimentation rate 28 mm/h red blood cell distribution width 13.0 % mean corpuscular volume, RBC 98 fL leukocyte count, blood 6.2 10*3/mm3 erythrocyte (RBC) count 3.95 10*6/mm3 platelet count 297 10*3/mm3 hemoglobin, blood 13.0 g/dL hematocrit, blood 39 % Clinical Lists Update: CMP,CHOL,TRIG,TSH,FREE T4,HGA1C - Chemistry albumin, serum 3.9 g/dL alkaline phosphatase, serum 44 U/L urea nitrogen, blood 17 mg/dL calcium, serum 9.4 mg/dL chloride, serum 108 mmol/L cholesterol, serum 214 mg/dL carbon dioxide, venous blood 26 mmol/L creatinine, serum 0.77 mg/dL thyroxine, serum, free 0.92 ng/dL hemoglobin A1C, blood, as % of total hemoglobin 5.7 % thyroid stimulating hormone, serum 2.87 u[iU]/mL potassium, serum 4.0 mmol/L protein, total, serum 6.8 g/dL aspartate aminotransferase (SGOT), serum 13 U/L alanine aminotransferase (SGPT), serum 14 U/L bilirubin, serum, total 0.5 mg/dL triglyceride, serum, fasting 72 mg/dL sodium, serum 142 mmol/L glucose, plasma fasting 100 mg/dL Estimated Glomerular Filtration Rate (calc) >60 mL/min/1.73m2 Encounters Code Encounter Date Provider Facility CPT-60563 Ofc Vst, Est Level IV 16:01:23 ELECTRO TECH Tanesha Garner, DO, FACP CPT-62424 Ofc Vst, Est Level IV 13:34:38 CDT Tanesha Garner DO, FACP CPT-96559 Ofc Vst, Est Level IV 19:29:03 CDT Tanesha Garner, DO, FACP CPT-10737 Ofc Vst, Est Level III 15:32:53 ELECTRO TECH Tanesha Garner, DO, FACP CPT-18371 Ofc Vst, Est Level III 20:30:14 ELECTRO TECH Tanesha Garner, DO, FACP CPT-38806 Ofc Vst, Est Level III 15:15:34 ELECTRO TECH Tanesha Garner, DO, FACP CPT-66139 Ofc Vst, Est Level IV 15:43:13 CDT Tanesha Garner, DO, FACP CPT-78856 Ofc Vst, Est Level III 15:43:11 CDT Tanesha [facility] CPT-18512 Ofc Vst, Est Level IV 20:39:52 ELECTRO TECH Tanesha Sánchez Patsy, DO, FACP CPT-19092 Ofc Vst, Est Level III 14:07:52 ELECTRO TECH Tanesha Sánchez , DO, FACP CPT-60947 Ofc Vst, Est Level IV 14:49:29 CDT Tanesha Sánchez Patys, DO, FACP CPT-72662 Ofc Vst, Est Level III 15:48:52 ELECTRO TECH Tanesha Sánchez Patsy, DO, FACP CPT-79048 Ofc Vst, Est Level III 13:44:15 CDT Taneshamegan Sánchez Patsy, DO, FACP CPT-72210 Ofc Vst, Est Level IV 10:32:53 CDT Taneshamegan Sánchez Patsy, DO, FACP CPT-49681 Ofc Vst, Est Level IV 11:02:10 CDT Taneshamegan Sánchez Patsy, DO, FACP CPT-69269 Ofc Vst, Est Level III 11:21:28 CDT Taneshamegan Sánchez Patsy, DO, FACP CPT-34383 Ofc Vst, Est Level IV 11:05:01 CDT Taneshamegan Garner [facility] CPT-81627 Ofc Vst, Est Level IV 10:10:08 CDT Tanesha Becky Sánchez Patsy, DO, FACP CPT-34318 Ofc Vst, Est Level V 10:20:21 CDT Taneshamegan Sánchez Patsy, DO, FACP CPT-46598 Ofc Vst, Est Level IV 16:15:55 CDT Taneshamegan Garner [facility] CPT-10945 Ofc Vst, Est Level IV 15:03:32 CDT Taneshamegan Welch[facility] CPT-61600 Ofc Vst, Est Level IV 10:27:21 CDT Taneshamegan Pena Taneshamegna Garner, DO, FACP CPT-85103 Ofc Vst, Est Level V 14:40:16 CDT Tanesha Becky [facility] CPT-89109 Ofc Vst, Est Level IV 14:18:38 CDT Tanesha Becky Welch[facility] CPT-01279 Ofc Vst, Est Level IV 10:48:56 ELECTRO TECH Taneshamegan Pena Taneshamegan Garner, DO, FACP CPT-69201 Ofc Vst, Est Level V 09:48:01 ELECTRO TECH Tanesha Pena Patsy Garner, DO, FACP CPT-49681 Ofc Vst, Est Level IV 17:03:21 CDT Taneshamegan Pena Patsy Garner, DO, FACP CPT-07574 Ofc Vst, Est Level IV 17:52:03 CDT Tanesha Becky Taneshamegan Garner, DO, FACP CPT-38024 Ofc Vst, Est Level IV 13:00:15 CDT Taneshamegan Garner [facility] CPT-21388 Ofc Vst, Est Level IV 13:47:04 CDT Taneshamegan Garner [facility] CPT-22730 Ofc Vst, Est Level IV 14:43:32 ELECTRO TECH Tanesha Garner [facility] CPT-80149 Ofc Vst, Est Level III 18:50:40 CDT Tanesha Becky Garner [facility] CPT-27190 Ofc Vst, Est Level IV 20:44:54 CDT Tanesha Becky Garner [facility] CPT-53815 Ofc Vst, Est Level IV 15:04:35 CDT Tanesha Garner [facility] CPT-67521 Ofc Vst, Est Level IV 11:10:53 CDT Tanesha Becky [facility]ner [facility] CPT-22922 Ofc Vst, Est Level IV 10:39:12 ELECTRO TECH Tanesha Beckytorsten Garner [facility] CPT-42556 Ofc Vst, Est Level III 10:16:51 CDT Tanesha Becky Garner [facility] CPT-54755 Ofc Vst, Est Level III 10:58:58 CDT Tanesha Becky Garner [facility] CPT-20207 Ofc Vst, Est Level IV 11:33:49 CDT Tanesha Beckytorsten Garner [facility] CPT-45103 Ofc Vst, Est Level III 20:26:07 ELECTRO TECH Tanesha Becky [facility] CPT-77764 Ofc Vst, Est Level II 18:37:20 CDT Tanesha Becky Garner [facility] CPT-67519 Ofc Vst, New Level III 18:05:22 CDT [facility] Beckytorsten Garner [facility] Procedures Code Procedure Name Date Entry Date Standard Description CPT-81144 Preventive, New, (65+) 17:08:35 CDT CPT-99075 Preventive, Est, (40-64) 11:39:28 CDT CPT-24637 Preventive, Est, (40-64) 16:22:37 ELECTRO TECH CPT-98411 Ear Wax Removal 11:13:33 CDT CPT-79501 EKG w/ Interpretation 14:40:16 CDT
--- OUTSIDE RECORDS SUMMARY | 2017-07-10 07:08 | XMS REPORT | Clinical Summary ---
Author Author User, [employer] Organization [facility] [place] Address Unknown Phone Unavailable Allergies, Adverse Reactions, Alerts Allergy Name Reaction Description Start Date Severity Status Provider No Known Allergies Varsha Roque Conditions or Problems Problem Name Problem Code Onset Date Status Entry Date Provider Comment Standard Description Annotate WELL WOMAN V70.0 Resolved Tanesha Garner Routine general medical examination at a [facility] care facility DEPRESSION 311 Active Tanesha [...] Garner Routine general medical examination at a [facility] care facility DIVERTICULITIS, ACUTE 562.11 Resolved [...] Garner Routine general medical examination at a [facility] care facility GERD 530.81 Active Tanesha Garner Esophageal reflux ABDOMINAL PAIN, GENERALIZED 789.07 Active Tanesha Garner Abdominal pain, generalized Medication List Medication Instructions Start Date Stop Date Generic Name NDC Status Provider Patient Instruction BUSPIRONE HCL 10 MG TABS 1 PO QHS BUSPIRONE HCL 32139634090 Active Sarah Mayers ZOVIRAX 5 % CREA APPLY TO AFFECTED AREAS BID PRN ACYCLOVIR 08731844225 No Longer Active Tanesha Garner ULTRAM 50 MG TAB 1 PO TID prn TRAMADOL HCL 14868636498 No Longer Active Tanesha Garner LYRICA 75 MG CAPS 1 PO BID PREGABALIN 49626026343 No Longer Active Tanesha Garner BUSPIRONE HCL 10 MG TABS 1 PO BID prn BUSPIRONE HCL 06950097818 No Longer Active Tanesha Garner OMEPRAZOLE 40 MG CPDR 1 PO daily every morning on empty stomach. OMEPRAZOLE 55946394010 Active Sarah Mayers TRIAMCINOLONE ACETONIDE 0.1 % CREA apply BID to affected area on back until resolved. TRIAMCINOLONE ACETONIDE (TOP) 82980517054 No Longer Active Tanesha Garner LIDOCAINE 5 % PTCH Apply one patch Q12 hours prn to affected area LIDOCAINE 86913913453 No Longer Active Taneshamegan Garner OXYCODONE HCL 10 MG TABS 1 PO TID prn severe pain OXYCODONE HCL 11539493158 No Longer Active Tanesha Becky Garner VALTREX 1 GM TAB 1 PO TID VALACYCLOVIR HCL 23723383290 No Longer Active Taneshamegan Garner LIDOCAINE VISCOUS 2 % SOLN apply a small amount to the inside of mouth, allow to sit for 2 minutes and then spit out LIDOCAINE HCL 52981361341 No Longer Active Taneshamegan Garner ZOVIRAX 5 % CREA apply to affected areas BID prn until resolved ACYCLOVIR 46064471189 No Longer Active Taneshamegan Garner NAPROXEN 500 MG TAB 1 PO BID NAPROXEN 55761866362 No Longer Active Taneshamegan Garner AMOXICILLIN 500 MG CAP 1 PO TID AMOXICILLIN 94700775254 No Longer Active Sarah Mayers PROMETHAZINE VC/CODEINE 6.25-5-10 MG/5ML SYRP 1 teaspoon Q 4 hours prn 4 oz [id number] 49445789881 No Longer Active Taneshamegan Garner WELLBUTRIN XL 300 MG [id number] I PO DAILY ALONG WITH 150MG TABLET TO TOTAL 450MG DAILY BUPROPION HCL 25731290933 Active Sarah Mayers WELLBUTRIN XL 150 MG [id number] 1 PO DAILY ALONG WITH 300MG TO TOTAL 450MG DAILY BUPROPION HCL 50451316424 Active Sarah Mayers FLAGYL 500 MG TABS 1 PO TID METRONIDAZOLE 79906417727 No Longer Active Tanesha Becky Garner LEVAQUIN 500 MG TAB 1 PO QD LEVOFLOXACIN 35327488685 No Longer Active Tanesha Becky Garner PERCOCET 5-325 MG TAB 1 PO Q 6 hours prn OXYCODONE- ACETAMINOPHEN 95182825098 No Longer Active Tanesha Becky Garner PHENTERMINE HCL 37.5 MG CAPS 1 PO Daily PHENTERMINE HCL 91056563228 No Longer Active Tanesha Becky Garner PERCOCET 5-325 MG TAB 1-2 PO Q 6 hours OXYCODONE- ACETAMINOPHEN 12083075488 No Longer Active Tanesha Becky Garner KEFLEX 500 MG CAP 1 PO TID for 7 days CEPHALEXIN 29955993687 No Longer Active Tanesha Becky Garner ZOCOR 40 MG TABS 1 po daily SIMVASTATIN 85732663719 No Longer Active Tanesha Becky Garner MIRALAX POWD 1 scoop in 4oz of water PO TID as needed POLYETHYLENE GLYCOL 3350 83011908837 No Longer Active Tanesha Becky Garner LORTAB 5 5-500 MG TABS 1 to 2 PO Q6hrs prn ACETAMINOPHEN-HYDROCODONE 67066435520 No Longer Active Tanesha Becky Garner PERCOCET 5-325 MG TAB 1 PO Q 6 hours OXYCODONE- ACETAMINOPHEN 67211677873 No Longer Active Tanesha Becky Garner ASPIRIN 81 MG TAB 2 PO daily ASPIRIN 96257875933 No Longer Active Tanesha Becky Garner COLACE CAPS 2 po BID DOCUSATE SODIUM CAPS 68177771267 No Longer Active Tanesha Becky Garner OCUFLOX 0.3 % SOLN 2 drops left ear TID for 7 days OFLOXACIN 52600233541 No Longer Active Tanesha Becky Garner FLAGYL 500 MG TABS 1 po TID METRONIDAZOLE 16374646406 No Longer Active Tanesha Becky Garner LEVAQUIN 500 MG TABS 1 po daily for 7 days LEVOFLOXACIN 73542304159 No Longer Active Tanesha Becky Garner VALIUM 2 MG TAB 1/2 to 1 PO Q6hrs prn DIAZEPAM 98839495361 No Longer Active Tanesha Becky LEXAPRO 20 MG TABS 2 PO daily ESCITALOPRAM OXALATE 43010257560 No Longer Active Tanesha Becky Garner WELLBUTRIN 75 MG TABS 1 PO BID for 1 month. Then change to Welbutrin XL 150 mg daily. BUPROPION HCL 92622276862 No Longer Active Tanesha Becky Garner COLACE 60 MG/15ML SYRP 2 drops in each ear, let stand for 5 mintues then rinse with water for 1 week. (Please provide bottle with dropper) DOCUSATE SODIUM 74055740779 No Longer Active Tanesha Becky Garner FLAGYL 500 MG TABS 1 PO TID for 7 days METRONIDAZOLE 46346618970 No Longer Active Tanesha Becky Patsy LEVAQUIN 500 MG TAB 1 PO QD LEVOFLOXACIN 32949075654 No Longer Active Tanesha Becky Garner CHANTIX STARTING MONTH MAGGIE 0.5 MG X 11 & 1 MG X 14 MISC as directed VARENICLINE TARTRATE 56389167453 No Longer Active Tanesha Becky Garner LIBRIUM 10 MG CAPS 1 PO TID prn tremors CHLORDIAZEPOXIDE HCL 49477464550 No Longer Active Tanesha Becky Garner ROBITUSSIN A-C 10-100 MG/5ML SYRUP 1 teaspoon PO Q 4-6 hr prn ROBITUSSIN A-C 10-100 MG/5ML SYRUP 00627802038 No Longer Active Z Z AUGMENTIN 500-125 MG TAB 1 PO BID AMOXICILLIN-POT CLAVULANATE 38437769081 No Longer Active Z Z VOLTAREN-XR 100 MG TB24 1 PO daily DICLOFENAC SODIUM 21839769569 No Longer Active Tanesha Becky Garner EFFEXOR XR 75 MG CP24 1 PO QD (take after completing 37.5mg daily for 7 days) VENLAFAXINE HCL 61858910707 No Longer Active Tanesha Becky Garner EFFEXOR XR 37.5 MG CP24 1 PO daily for 7 days and then take the 75mg dose VENLAFAXINE HCL 93852732236 No Longer Active Tanesha Becky Garner SKELAXIN 800 MG TABS 1 PO TID prn METAXALONE 92562197620 No Longer Active Tanesha Becky Garner LORTAB 5 5-500 MG TABS 1 PO Qhrs prn pain ACETAMINOPHEN-HYDROCODONE 61859595938 No Longer Active Tanesha Becky Garner PREMARIN 0.3 MG TABS 1 PO daily ESTROGENS CONJUGATED 34970860992 Active Sarah Becktis FLEXERIL 10 MG TAB 1 PO TID for neck muscle spasm CYCLOBENZAPRINE HCL 39838254080 No Longer Active Sarah Mayers KENALOG 0.5 % CREA Apply BID prn affected areas TRIAMCINOLONE ACETONIDE 26082744036 No Longer Active Taneshamegan Garner CALCIUM + D 400-133.3 MG-IU TABS 1 PO BID CALCIUM CARBONATE-VITAMIN D 31787166352 Active Tanesha Becky Garner CYMBALTA 60 MG CPEP 1 PO daily DULOXETINE HCL 40994700311 No Longer Active Taneshamegan Garner PHENTERMINE HCL 37.5 MG TABS 1 PO QD PHENTERMINE HCL 67022918002 No Longer Active Tanesha Becky Garner VALIUM 2 MG TAB 1 PO once before MRI DIAZEPAM 68010412519 No Longer Active Tanesha Becky Garner KENALOG 0.5 % CREA apply sparingly bid x 7days TRIAMCINOLONE ACETONIDE (TOP) 33391993180 No Longer Active Tanesha Becky MULTIVITAMINS TABS 1 tab po daily MULTIPLE VITAMIN 25598310498 Active Tanesha Garner CELEXA 40 MG TABS 1 po daily CITALOPRAM HYDROBROMIDE 25050375338 No Longer Active Tanesha Garner Vital Signs [...] mL/min/1.73m2 Encounters Code Encounter Date Provider Facility CPT-68988 Ofc Vst, Est Level IV 16:01:23 CREDIT CARD INTERVIEWER Tanesha Sánchez , DO, FACP CPT-95494 Ofc Vst, Est Level IV 13:34:38 CDT Tanesha Becky Sánchez , DO, FACP CPT-80617 Ofc Vst, Est Level IV 19:29:03 CDT Taneshamegan Sánchez , DO, FACP CPT-83653 Ofc Vst, Est Level III 15:32:53 CREDIT CARD INTERVIEWER Tanesha Sánchez , DO, FACP CPT-17121 Ofc Vst, Est Level III 20:30:14 CREDIT CARD INTERVIEWER Tanesha Sánchez , DO, FACP CPT-16109 Ofc Vst, Est Level III 15:15:34 CREDIT CARD INTERVIEWER Tanesha Sánchez , DO, FACP CPT-24773 Ofc Vst, Est Level IV 15:43:13 CDT Taneshamegan Sánchez , DO, FACP CPT-11335 Ofc Vst, Est Level III 15:43:11 CDT Taneshamegan [facility] CPT-85374 Ofc Vst, Est Level IV 20:39:52 CREDIT CARD INTERVIEWER Tanesha Sánchez , DO, FACP CPT-00092 Ofc Vst, Est Level III 14:07:52 CREDIT CARD INTERVIEWER Tanesha Becky Sánchez , DO, FACP CPT-73246 Ofc Vst, Est Level IV 14:49:29 CDT Tanesha Becky Sánchez , DO, FACP CPT-10529 Ofc Vst, Est Level III 15:48:52 CREDIT CARD INTERVIEWER Tanesha Becky Snáchez , DO, FACP CPT-28169 Ofc Vst, Est Level III 13:44:15 CDT Taneshamegan Sánchez , DO, FACP CPT-17193 Ofc Vst, Est Level IV 10:32:53 CDT Taneshamegan Sánchez Patsy, DO, FACP CPT-50131 Ofc Vst, Est Level IV 11:02:10 CDT Tanesha Becky Sánchez Patsy, DO, FACP CPT-44046 Ofc Vst, Est Level III 11:21:28 CDT Taneshamegan Sánchez Patsy, DO, FACP CPT-49201 Ofc Vst, Est Level IV 11:05:01 CDT Taneshamegan Garner [facility] CPT-55550 Ofc Vst, Est Level IV 10:10:08 CDT Taneshamegan Sánchez Patsy, DO, FACP CPT-60315 Ofc Vst, Est Level V 10:20:21 CDT Taneshamegan Sánchez Patsy, DO, FACP CPT-13351 Ofc Vst, Est Level IV 16:15:55 CDT Taneshamgean Garner [facility] CPT-26168 Ofc Vst, Est Level IV 15:03:32 CDT Taneshamegan Garner [facility] CPT-70501 Ofc Vst, Est Level IV 10:27:21 CDT Taneshamegan Sánchez Patsy, DO, FACP CPT-40648 Ofc Vst, Est Level V 14:40:16 CDT Taneshamegan Garner [facility] CPT-37038 Ofc Vst, Est Level IV 14:18:38 CDT Taneshamegan Garner [facility] CPT-19997 Ofc Vst, Est Level IV 10:48:56 CREDIT CARD INTERVIEWER Tanesha Sánchez Patsy, DO, FACP CPT-89243 Ofc Vst, Est Level V 09:48:01 CREDIT CARD INTERVIEWER Tanesha Sánchez Patsy, DO, FACP CPT-41779 Ofc Vst, Est Level IV 17:03:21 CDT Tanesha Becky Garner, DO, FACP CPT-40551 Ofc Vst, Est Level IV 17:52:03 CDT Taneshamegan Garner DO, FACP CPT-29871 Ofc Vst, Est Level IV 13:00:15 CDT Tanesha Becky Garner [facility] [place] CPT-04370 Ofc Vst, Est Level IV 13:47:04 CDT Tanesha Becky Garner [facility] [place] CPT-89836 Ofc Vst, Est Level IV 14:43:32 CREDIT CARD INTERVIEWER Tanesha Garner [facility] [place] CPT-33054 Ofc Vst, Est Level III 18:50:40 CDT Tanesha Becky Garner [facility] [place] CPT-12684 Ofc Vst, Est Level IV 20:44:54 CDT Tanesha Becky Garner [facility] [place] CPT-11312 Ofc Vst, Est Level IV 15:04:35 CDT Tanesha Becky Garner [facility] [place] CPT-92137 Ofc Vst, Est Level IV 11:10:53 CDT Tanesha Becky Garner [facility] [place] CPT-31594 Ofc Vst, Est Level IV 10:39:12 CREDIT CARD INTERVIEWER Tanesha Garner [facility] [place] CPT-38385 Ofc Vst, Est Level III 10:16:51 CDT Taneshamegan Garner [facility] [place] CPT-45541 Ofc Vst, Est Level III 10:58:58 CDT Taneshamegan Garner [facility] [place] CPT-99077 Ofc Vst, Est Level IV 11:33:49 CDT Taneshamegan Garner [facility] [place] CPT-27623 Ofc Vst, Est Level III 20:26:07 CREDIT CARD INTERVIEWER Tanesha Garner [facility] [place] CPT-63285 Ofc Vst, Est Level II 18:37:20 CDT Tanesha Garner [facility] [place] CPT-99461 Ofc Vst, New Level III 18:05:22 CDT Tanesha Garner [facility] [place] Procedures Code Procedure Name Date Entry Date Standard Description CPT-92612 Preventive, Est, (40-64) 11:39:28 CDT CPT-56430 Preventive, Est, (40-64) 16:22:37 CREDIT CARD INTERVIEWER CPT-98092 Ear Wax Removal 11:13:33 CDT CPT-56651 EKG w/ Interpretation 14:40:16 CDT
--- OUTSIDE RECORDS SUMMARY | 2017-07-10 07:11 | XMS REPORT | Clinical Summary ---
Author Author User, [employer] Organization [facility] [place] Address Unknown Phone Unavailable Allergies, Adverse Reactions, Alerts Allergy Name Reaction Description Start Date Severity Status Provider No Known Allergies Varsha Roque Conditions or Problems Problem Name Problem Code Onset Date Status Entry Date Provider Comment Standard Description Annotate WELL WOMAN V70.0 Resolved Tanesha Garner Routine general medical examination at a [facility] care facility DEPRESSION 311 Active Tanesha [...] Garner Routine general medical examination at a [facility] care facility DIVERTICULITIS, ACUTE 562.11 Resolved [...] medical examination at a health care facility Medication List Medication Instructions Start Date Stop Date Generic Name NDC Status Provider Patient Instruction ZOSTAVAX 92128 UNT/0.65ML SOLR 1 injection once to prevent Shingles ZOSTER VACCINE LIVE 06756576345 Active Jayne Quintana [facility] MELATONIN 3 MG TABS 1 po QHS MELATONIN 15784857266 Active Tanesha Garner BUSPIRONE HCL 10 MG TABS 1 PO QHS BUSPIRONE HCL 23214928112 Active Sarah Mayers ZOVIRAX 5 % CREA APPLY TO AFFECTED AREAS BID PRN ACYCLOVIR 74867216040 No Longer Active Tanesha Garner ULTRAM 50 MG TAB 1 PO TID prn TRAMADOL HCL 40273495315 No Longer Active Tanesha Garner LYRICA 75 MG CAPS 1 PO BID PREGABALIN 30567202141 No Longer Active Tanesha Garner BUSPIRONE HCL 10 MG TABS 1 PO BID prn BUSPIRONE HCL 76876158797 No Longer Active Tanesha Garner OMEPRAZOLE 40 MG CPDR 1 PO daily every morning on empty stomach. OMEPRAZOLE 71515644180 Active Sarah Mayers TRIAMCINOLONE ACETONIDE 0.1 % CREA apply BID to affected area on back until resolved. TRIAMCINOLONE ACETONIDE (TOP) 88751631801 No Longer Active Tanesha Garner LIDOCAINE 5 % PTCH Apply one patch Q12 hours prn to affected area LIDOCAINE 49028861714 No Longer Active Tanesha Garner OXYCODONE HCL 10 MG TABS 1 PO TID prn severe pain OXYCODONE HCL 80155852600 No Longer Active Tanesha Garner VALTREX 1 GM TAB 1 PO TID VALACYCLOVIR HCL 77609079839 No Longer Active Tanesha aGrner LIDOCAINE VISCOUS 2 % SOLN apply a small amount to the inside of mouth, allow to sit for 2 minutes and then spit out LIDOCAINE HCL 75542063701 No Longer Active Tanesha Garner ZOVIRAX 5 % CREA apply to affected areas BID prn until resolved ACYCLOVIR 65739656866 No Longer Active Tanesha Garner NAPROXEN 500 MG TAB 1 PO BID NAPROXEN 95400480978 No Longer Active Tanesha Garner AMOXICILLIN 500 MG CAP 1 PO TID AMOXICILLIN 41583816287 No Longer Active Sarah Mayers PROMETHAZINE VC/CODEINE 6.25-5-10 MG/5ML SYRP 1 teaspoon Q 4 hours prn 4 oz [id number] 07676959932 No Longer Active Tanesha Garner WELLBUTRIN XL 300 MG [id number] I PO DAILY ALONG WITH 150MG TABLET TO TOTAL 450MG DAILY BUPROPION HCL 28545105878 Active Sarah Mayers WELLBUTRIN XL 150 MG [id number] 1 PO DAILY ALONG WITH 300MG TO TOTAL 450MG DAILY BUPROPION HCL 47625922505 Active Sarah Mayers FLAGYL 500 MG TABS 1 PO TID METRONIDAZOLE 64104264866 No Longer Active Tanesha Becky Garner LEVAQUIN 500 MG TAB 1 PO QD LEVOFLOXACIN 14055968970 No Longer Active Tanesha Becky Garner PERCOCET 5-325 MG TAB 1 PO Q 6 hours prn OXYCODONE- ACETAMINOPHEN 06024193944 No Longer Active Tanesha Becky Garner PHENTERMINE HCL 37.5 MG CAPS 1 PO Daily PHENTERMINE HCL 77652250225 No Longer Active Tanesha Becky Garner PERCOCET 5-325 MG TAB 1-2 PO Q 6 hours OXYCODONE- ACETAMINOPHEN 18533788211 No Longer Active Tanesha Becky Garner KEFLEX 500 MG CAP 1 PO TID for 7 days CEPHALEXIN 30278431759 No Longer Active Tanesha Becky Garner ZOCOR 40 MG TABS 1 po daily SIMVASTATIN 49563095026 No Longer Active Tanesha Bekcy Garner MIRALAX POWD 1 scoop in 4oz of water PO TID as needed POLYETHYLENE GLYCOL 3350 77425126126 No Longer Active Tanesha Becky Garner LORTAB 5 5-500 MG TABS 1 to 2 PO Q6hrs prn ACETAMINOPHEN-HYDROCODONE 90965608278 No Longer Active Tanesha Becky Garner PERCOCET 5-325 MG TAB 1 PO Q 6 hours OXYCODONE- ACETAMINOPHEN 11910932745 No Longer Active Tanesha Becky Garner ASPIRIN 81 MG TAB 2 PO daily ASPIRIN 53336296075 No Longer Active Tanesha Becky Garner COLACE CAPS 2 po BID DOCUSATE SODIUM CAPS 30332212167 No Longer Active Tanesha Becky Garner OCUFLOX 0.3 % SOLN 2 drops left ear TID for 7 days OFLOXACIN 55725454192 No Longer Active Tanesha Becky Garner FLAGYL 500 MG TABS 1 po TID METRONIDAZOLE 28612103579 No Longer Active Tanesha Bceky Garner LEVAQUIN 500 MG TABS 1 po daily for 7 days LEVOFLOXACIN 16937501319 No Longer Active Tanesha Becky Patsy VALIUM 2 MG TAB 1/2 to 1 PO Q6hrs prn DIAZEPAM 66757245541 No Longer Active Tanesha Becky LEXAPRO 20 MG TABS 2 PO daily ESCITALOPRAM OXALATE 49507821136 No Longer Active Tanesha Becky Garner WELLBUTRIN 75 MG TABS 1 PO BID for 1 month. Then change to Welbutrin XL 150 mg daily. BUPROPION HCL 60671348712 No Longer Active Tanesha Becky Garner COLACE 60 MG/15ML SYRP 2 drops in each ear, let stand for 5 mintues then rinse with water for 1 week. (Please provide bottle with dropper) DOCUSATE SODIUM 98978651142 No Longer Active Tanesha Becky Patsy FLAGYL 500 MG TABS 1 PO TID for 7 days METRONIDAZOLE 18236517013 No Longer Active Tanesha Becky LEVAQUIN 500 MG TAB 1 PO QD LEVOFLOXACIN 54947784404 No Longer Active Tanesha Becky Garner CHANTIX STARTING MONTH MAGGIE 0.5 MG X 11 & 1 MG X 14 MISC as directed VARENICLINE TARTRATE 32930626400 No Longer Active Tanesha Becky Garner LIBRIUM 10 MG CAPS 1 PO TID prn tremors CHLORDIAZEPOXIDE HCL 13789034808 No Longer Active Tanesha Becky Garner ROBITUSSIN A-C 10-100 MG/5ML SYRUP 1 teaspoon PO Q 4-6 hr prn ROBITUSSIN A-C 10-100 MG/5ML SYRUP 45583421620 No Longer Active Z Z AUGMENTIN 500-125 MG TAB 1 PO BID AMOXICILLIN-POT CLAVULANATE 93590967184 No Longer Active Z Z VOLTAREN-XR 100 MG TB24 1 PO daily DICLOFENAC SODIUM 63203420944 No Longer Active Tanesha Garner EFFEXOR XR 75 MG CP24 1 PO QD (take after completing 37.5mg daily for 7 days) VENLAFAXINE HCL 48809017069 No Longer Active Tanesha Garner EFFEXOR XR 37.5 MG CP24 1 PO daily for 7 days and then take the 75mg dose VENLAFAXINE HCL 65742749496 No Longer Active Tanesha Garner SKELAXIN 800 MG TABS 1 PO TID prn METAXALONE 54175379515 No Longer Active Tanesha Garner LORTAB 5 5-500 MG TABS 1 PO Qhrs prn pain ACETAMINOPHEN-HYDROCODONE 92462763573 No Longer Active Tanesha Garner PREMARIN 0.3 MG TABS 1 PO daily ESTROGENS CONJUGATED 17534169262 Active Sarah Mayers FLEXERIL 10 MG TAB 1 PO TID for neck muscle spasm CYCLOBENZAPRINE HCL 49066322382 No Longer Active Sarah Mayers KENALOG 0.5 % CREA Apply BID prn affected areas TRIAMCINOLONE ACETONIDE 09625966338 No Longer Active Tanesha Garner CALCIUM + D 400-133.3 MG-IU TABS 1 PO BID CALCIUM CARBONATE-VITAMIN D 06509704754 Active Tanesha Garner CYMBALTA 60 MG CPEP 1 PO daily DULOXETINE HCL 05689010254 No Longer Active Tanesha Garner PHENTERMINE HCL 37.5 MG TABS 1 PO QD PHENTERMINE HCL 66216607895 No Longer Active Taneshamegan Mirandae Patsy VALIUM 2 MG TAB 1 PO once before MRI DIAZEPAM 50765441348 No Longer Active Tanesha Becky Patsy KENALOG 0.5 % CREA apply sparingly bid x 7days TRIAMCINOLONE ACETONIDE (TOP) 93752038262 No Longer Active Taneshamegan Garner MULTIVITAMINS TABS 1 tab po daily MULTIPLE VITAMIN 70488268791 Active Taneshamegan Garner CELEXA 40 MG TABS 1 po daily CITALOPRAM HYDROBROMIDE 94918862949 No Longer Active Tanesha Mirandae Patsy Vital Signs Date Name Value Unit Range [...] mL/min/1.73m2 Encounters Code Encounter Date Provider Facility CPT-00785 Ofc Vst, Est Level IV 16:01:23 AUTO ROLLER Tanesha Garner, DO, FACP CPT-01622 Ofc Vst, Est Level IV 13:34:38 CDT Tanesha Garner, DO, FACP CPT-95848 Ofc Vst, Est Level IV 19:29:03 CDT Tanesha Garner, DO, FACP CPT-99974 Ofc Vst, Est Level III 15:32:53 AUTO ROLLER Tanesha Garner, DO, FACP CPT-44219 Ofc Vst, Est Level III 20:30:14 AUTO ROLLER Tanesha Garner, DO, FACP CPT-00975 Ofc Vst, Est Level III 15:15:34 AUTO ROLLER Tanesha Garner, DO, FACP CPT-92160 Ofc Vst, Est Level IV 15:43:13 CDT Tanesha Garner, DO, FACP CPT-45714 Ofc Vst, Est Level III 15:43:11 CDT Taneshamegan Garner [facility] CPT-84790 Ofc Vst, Est Level IV 20:39:52 AUTO ROLLER Taneshamegan Sánchez Patsy, DO, FACP CPT-40734 Ofc Vst, Est Level III 14:07:52 AUTO ROLLER Tanesha Sánchez Patsy, DO, FACP CPT-15253 Ofc Vst, Est Level IV 14:49:29 CDT Taneshamegan Sánchez Patsy, DO, FACP CPT-09343 Ofc Vst, Est Level III 15:48:52 AUTO ROLLER Tanesha Sánchez Patsy, DO, FACP CPT-57995 Ofc Vst, Est Level III 13:44:15 CDT Tanesha Becky Sánchez Patsy, DO, FACP CPT-44225 Ofc Vst, Est Level IV 10:32:53 CDT Tanesha Becky Sánchez Patsy, DO, FACP CPT-98709 Ofc Vst, Est Level IV 11:02:10 CDT Tanesha Becky Sánchez Patsy, DO, FACP CPT-36616 Ofc Vst, Est Level III 11:21:28 CDT Taneshamegan Sánchez Patsy, DO, FACP CPT-18653 Ofc Vst, Est Level IV 11:05:01 CDT Taneshamegan Garner [facility] CPT-29872 Ofc Vst, Est Level IV 10:10:08 CDT Tanesha Becky [facility] Tanesha Sánchez Patsy, DO, FACP CPT-25527 Ofc Vst, Est Level V 10:20:21 CDT Taneshamegan Welchner Tanesha Sánchez Patsy, DO, FACP CPT-86317 Ofc Vst, Est Level IV 16:15:55 CDT Taneshamegan Garner [facility] CPT-00881 Ofc Vst, Est Level IV 15:03:32 CDT Tanesha Becky Garner [place] [facility] CPT-07891 Ofc Vst, Est Level IV 10:27:21 CDT Tanesha Becky [facility]ner Taneshamegan Garner, DO, FACP CPT-23897 Ofc Vst, Est Level V 14:40:16 CDT Tanesha Becky Garner [place] [facility] CPT-23391 Ofc Vst, Est Level IV 14:18:38 CDT Tanesha Becky Garner [place] [facility] CPT-16893 Ofc Vst, Est Level IV 10:48:56 AUTO ROLLER Tanesha Pena Patsy Garner, DO, FACP CPT-59338 Ofc Vst, Est Level V 09:48:01 AUTO ROLLER Taneshamegan Pena Patsy Garner, DO, FACP CPT-42721 Ofc Vst, Est Level IV 17:03:21 CDT Taneshamegan Pena Patsy Garner, DO, FACP CPT-56165 Ofc Vst, Est Level IV 17:52:03 CDT Tanesha Becky Patsy Garner, DO, FACP CPT-75167 Ofc Vst, Est Level IV 13:00:15 CDT Taneshamegan Garner [facility] [place] CPT-28497 Ofc Vst, Est Level IV 13:47:04 CDT Taneshamegan Garner [facility] [place] CPT-05265 Ofc Vst, Est Level IV 14:43:32 AUTO ROLLER Tanesha Garner [facility] [place] CPT-51005 Ofc Vst, Est Level III 18:50:40 CDT Tanesha Garner [facility] [place] CPT-03910 Ofc Vst, Est Level IV 20:44:54 CDT Tanesha Becky Garner [facility] [place] CPT-92526 Ofc Vst, Est Level IV 15:04:35 CDT Tanesha Becky [facility] [place] CPT-82926 Ofc Vst, Est Level IV 11:10:53 CDT Tanesha Becky [facility] [place] CPT-42677 Ofc Vst, Est Level IV 10:39:12 AUTO ROLLER Tanesha Welchner [facility] [place] CPT-13089 Ofc Vst, Est Level III 10:16:51 CDT Tanesha Becky Welchner [facility] [place] CPT-62224 Ofc Vst, Est Level III 10:58:58 CDT Tanesha Becky [facility] [place] CPT-87536 Ofc Vst, Est Level IV 11:33:49 CDT Tanesha Becky Welchner [facility] [place] CPT-36054 Ofc Vst, Est Level III 20:26:07 AUTO ROLLER Tanesha Becky [facility] [place] CPT-02479 Ofc Vst, Est Level II 18:37:20 CDT Tanesha Becky Welchner [facility] [place] CPT-94794 Ofc Vst, New Level III 18:05:22 CDT [facility] Becky Welchner [facility] [place] Procedures Code Procedure Name Date Entry Date Standard Description CPT-41548 Preventive, New, (65+) 17:08:35 CDT CPT-14533 Preventive, Est, (40-64) 11:39:28 CDT CPT-16516 Preventive, Est, (40-64) 16:22:37 [employer] ROLL[employer] CPT-30006 Ear Wax Removal 11:13:33 CDT CPT-44383 EKG w/ Interpretation 14:40:16 CDT
--- OUTSIDE RECORDS SUMMARY | 2017-07-10 07:14 | XMS REPORT | Continuity of Care Document ---
Author Author [facility] Organization [facility] Address Unknown Phone Unavailable Allergies Active Description Code Type Severity Reaction Onset Reported/Identified Relationship to Patient Clinical Status Yes No Known Drug Allergies [id number] Drug Allergy Unknown N/A 05/14/2008 Medications There is no data. Problems Date Dx Coded Attending Type Code Diagnosis Diagnosed By 11/23/2009 Ot 272.4 11/23/2009 Ot 300.00 11/23/2009 Ot 716.90 11/23/2009 Ot 786.09 11/23/2009 Ot 786.50 11/23/2009 Ot 794.30 11/23/2009 Ot V07.4 11/23/2009 Ot V15.82 11/23/2009 Ot V45.77 11/23/2009 Ot V58.69 2011 Ot 562.10 DIVERTICULOSIS COLON (W/O MENT OF HEMORR 04/14/2014 Ot 272.0 04/14/2014 Ot 285.9 04/14/2014 Ot 562.11 04/14/2014 Ot 715.90 04/14/2014 Ot 733.90 04/14/2014 Ot 780.4 04/14/2014 Ot 784.0 04/14/2014 Ot 789.07 04/14/2014 Ot 272.0 04/14/2014 Ot 285.9 04/14/2014 Ot 562.11 04/14/2014 Ot 780.4 04/14/2014 Ot 786.09 04/14/2014 Ot 401.1 04/14/2014 Ot 780.4 04/14/2014 Ot 786.09 04/14/2014 Ot 401.1 04/14/2014 Ot 780.4 04/14/2014 Ot 786.09 04/14/2014 Ot 401.1 04/14/2014 Ot 414.9 04/14/2014 Ot 786.09 04/14/2014 Ot 272.0 04/14/2014 Ot 285.9 04/14/2014 Ot 401.1 04/14/2014 Ot 562.11 04/14/2014 Ot 789.04 04/14/2014 Ot 790.4 04/14/2014 Ot 791.9 04/14/2014 Ot 562.11 04/14/2014 Ot 562.11 04/14/2014 Ot V16.0 04/14/2014 Ot 272.0 04/14/2014 Ot 285.9 04/14/2014 Ot 401.1 04/14/2014 Ot 733.90 04/14/2014 Ot 790.4 04/14/2014 Ot V43.82 04/14/2014 Ot V76.12 04/14/2014 Ot 562.11 04/14/2014 Ot 789.04 04/14/2014 Ot 562.10 04/14/2014 Ot 272.0 04/14/2014 Ot 285.9 04/14/2014 Ot 401.1 04/14/2014 Ot V43.82 04/14/2014 Ot V76.12 04/14/2014 Ot 272.0 04/14/2014 Ot 285.9 04/14/2014 Ot 401.1 04/14/2014 Ot 715.90 04/14/2014 Ot 733.90 04/14/2014 Ot 789.00 04/14/2014 Ot 562.11 04/14/2014 ASHLEY DO, ELIZABETH Ot 272.0 04/14/2014 ASHLEY DO, ELIZABETH Ot 346.20 04/14/2014 ASHLEY DO, ELIZABETH Ot 401.1 04/14/2014 ASHLEY DO, ELIZABETH Ot 562.11 04/14/2014 ASHLEY DO, ELIZABETH Ot 715.90 04/14/2014 ASHLEY DO, ELIZABETH Ot 780.54 04/14/2014 ASHLEY DO, ELIZABETH Ot 783.1 04/14/2014 ASHLEY DO, ELIZABETH Ot 715.36 04/14/2014 ASHLEY DO, ELIZABETH Ot 719.46 04/14/2014 ASHLEY DO, ELIZABETH Ot 272.0 04/14/2014 ASHLEY DO, ELIZABETH Ot 715.90 04/14/2014 ASHLEY DO, ELIZABETH Ot 719.46 04/14/2014 ASHLEY DO, ELIZABETH Ot 780.54 04/14/2014 ASHLEY DO, ELIZABETH Ot 790.6 04/14/2014 ASHLEY DO, ELIZABETH Ot V58.69 04/14/2014 DION DO, ELIZABETH Ot V58.83 04/14/2014 DION CAMPO, ELIZABETH Ot V70.0 04/17/2014 Ot 272.0 04/17/2014 Ot 285.9 04/17/2014 Ot 562.11 04/17/2014 Ot 715.90 04/17/2014 Ot 733.90 04/17/2014 Ot 780.4 04/17/2014 Ot 784.0 04/17/2014 Ot 789.07 04/17/2014 Ot 272.0 04/17/2014 Ot 285.9 04/17/2014 Ot 562.11 04/17/2014 Ot 780.4 04/17/2014 Ot 786.09 04/17/2014 Ot 401.1 04/17/2014 Ot 780.4 04/17/2014 Ot 786.09 04/17/2014 Ot 401.1 04/17/2014 Ot 780.4 04/17/2014 Ot 786.09 04/17/2014 Ot 401.1 04/17/2014 Ot 414.9 04/17/2014 Ot 786.09 04/17/2014 Ot 272.0 04/17/2014 Ot 285.9 04/17/2014 Ot 401.1 04/17/2014 Ot 562.11 04/17/2014 Ot 789.04 04/17/2014 Ot 790.4 04/17/2014 Ot 791.9 04/17/2014 Ot 562.11 04/17/2014 Ot 562.11 04/17/2014 Ot V16.0 04/17/2014 Ot 272.0 04/17/2014 Ot 285.9 04/17/2014 Ot 401.1 04/17/2014 Ot 733.90 04/17/2014 Ot 790.4 04/17/2014 Ot V43.82 04/17/2014 Ot V76.12 04/17/2014 Ot 562.11 04/17/2014 Ot 789.04 04/17/2014 Ot 562.10 04/17/2014 Ot 272.0 04/17/2014 Ot 285.9 04/17/2014 Ot 401.1 04/17/2014 Ot V43.82 04/17/2014 Ot V76.12 04/17/2014 Ot 272.0 04/17/2014 Ot 285.9 04/17/2014 Ot 401.1 04/17/2014 Ot 715.90 04/17/2014 Ot 733.90 04/17/2014 Ot 789.00 04/17/2014 Ot 562.11 04/17/2014 ASHLEY DO, ELIZABETH Ot 272.0 04/17/2014 ASHLEY DO, ELIZABETH Ot 346.20 04/17/2014 ASHLEY DO, ELIZABETH Ot 401.1 04/17/2014 ASHLEY DO, ELIZABETH Ot 562.11 04/17/2014 ASHLEY DO, ELIZABETH Ot 715.90 04/17/2014 ASHLEY DO, ELIZABETH Ot 780.54 04/17/2014 ASHLEY DO, ELIZABETH Ot 783.1 04/17/2014 ASHLEY DO, ELIZABETH Ot 715.36 04/17/2014 ASHLEY DO, ELIZABETH Ot 719.46 04/17/2014 ASHLEY DO, ELIZABETH Ot 272.0 04/17/2014 ASHLEY DO, ELIZABETH Ot 715.90 04/17/2014 ASHLEY DO, ELIZABETH Ot 719.46 04/17/2014 ASHLEY DO, ELIZABETH Ot 780.54 04/17/2014 ASHLEY DO, ELIZABETH Ot 790.6 04/17/2014 ASHLEY DO, ELIZABETH Ot V58.69 04/17/2014 ASHLEY DO, ELIZABETH Ot V58.83 04/17/2014 ASHLEY DO, ELIZABETH Ot V70.0 04/17/2014 Ot 272.0 04/17/2014 Ot 285.9 04/17/2014 Ot 562.11 04/17/2014 Ot 715.90 04/17/2014 Ot 733.90 04/17/2014 Ot 780.4 04/17/2014 Ot 784.0 04/17/2014 Ot 789.07 04/17/2014 Ot 272.0 04/17/2014 Ot 285.9 04/17/2014 Ot 562.11 04/17/2014 Ot 780.4 04/17/2014 Ot 786.09 04/17/2014 Ot 401.1 04/17/2014 Ot 780.4 04/17/2014 Ot 786.09 04/17/2014 Ot 401.1 04/17/2014 Ot 780.4 04/17/2014 Ot 786.09 04/17/2014 Ot 401.1 04/17/2014 Ot 414.9 04/17/2014 Ot 786.09 04/17/2014 Ot 272.0 04/17/2014 Ot 285.9 04/17/2014 Ot 401.1 04/17/2014 Ot 562.11 04/17/2014 Ot 789.04 04/17/2014 Ot 790.4 04/17/2014 Ot 791.9 04/17/2014 Ot 562.11 04/17/2014 Ot 562.11 04/17/2014 Ot V16.0 04/17/2014 Ot 272.0 04/17/2014 Ot 285.9 04/17/2014 Ot 401.1 04/17/2014 Ot 733.90 04/17/2014 Ot 790.4 04/17/2014 Ot V43.82 04/17/2014 Ot V76.12 04/17/2014 Ot 562.11 04/17/2014 Ot 789.04 04/17/2014 Ot 562.10 04/17/2014 Ot 272.0 04/17/2014 Ot 285.9 04/17/2014 Ot 401.1 04/17/2014 Ot V43.82 04/17/2014 Ot V76.12 04/17/2014 Ot 272.0 04/17/2014 Ot 285.9 04/17/2014 Ot 401.1 04/17/2014 Ot 715.90 04/17/2014 Ot 733.90 04/17/2014 Ot 789.00 04/17/2014 Ot 562.11 04/17/2014 ASHLEY DO, ELIZABETH Ot 272.0 04/17/2014 ASHLEY DO, ELIZABETH Ot 346.20 04/17/2014 ASHLEY DO, ELIZABETH Ot 401.1 04/17/2014 ASHLEY DO, ELIZABETH Ot 562.11 04/17/2014 ASHLEY DO, ELIZABETH Ot 715.90 04/17/2014 ASHLEY DO, ELIZABETH Ot 780.54 04/17/2014 ASHLEY DO, ELIZABETH Ot 783.1 04/17/2014 ASHLEY DO, ELIZABETH Ot 715.36 04/17/2014 ASHLEY DO, ELIZABETH Ot 719.46 04/17/2014 ASHLEY DO, ELIZABETH Ot 272.0 04/17/2014 ASHLEY DO, ELIZABETH Ot 715.90 04/17/2014 DION CAMPO, ELIZABETH Ot 719.46 04/17/2014 DION DO, ELIZABETH Ot 780.54 04/17/2014 DION CAMPO, ELIZABETH Ot 790.6 04/17/2014 DION CAMPO, ELIZABETH Ot V58.69 04/17/2014 DION CAMPO, ELIZABETH Ot V58.83 04/17/2014 ELIZABETH ASHLEY DO Ot V70.0 05/14/2014 Ot 272.0 05/14/2014 Ot 285.9 05/14/2014 Ot 562.11 05/14/2014 Ot 715.90 05/14/2014 Ot 733.90 05/14/2014 Ot 780.4 05/14/2014 Ot 784.0 05/14/2014 Ot 789.07 05/14/2014 Ot 272.0 05/14/2014 Ot 285.9 05/14/2014 Ot 562.11 05/14/2014 Ot 780.4 05/14/2014 Ot 786.09 05/14/2014 Ot 401.1 05/14/2014 Ot 780.4 05/14/2014 Ot 786.09 05/14/2014 Ot 401.1 05/14/2014 Ot 780.4 05/14/2014 Ot 786.09 05/14/2014 Ot 401.1 05/14/2014 Ot 414.9 05/14/2014 Ot 786.09 05/14/2014 Ot 272.0 05/14/2014 Ot 285.9 05/14/2014 Ot 401.1 05/14/2014 Ot 562.11 05/14/2014 Ot 789.04 05/14/2014 Ot 790.4 05/14/2014 Ot 791.9 05/14/2014 Ot 562.11 05/14/2014 Ot 562.11 05/14/2014 Ot V16.0 05/14/2014 Ot 272.0 05/14/2014 Ot 285.9 05/14/2014 Ot 401.1 05/14/2014 Ot 733.90 05/14/2014 Ot 790.4 05/14/2014 Ot V43.82 05/14/2014 Ot V76.12 05/14/2014 Ot 562.11 05/14/2014 Ot 789.04 05/14/2014 Ot 562.10 05/14/2014 Ot 272.0 05/14/2014 Ot 285.9 05/14/2014 Ot 401.1 05/14/2014 Ot V43.82 05/14/2014 Ot V76.12 05/14/2014 Ot 272.0 05/14/2014 Ot 285.9 05/14/2014 Ot 401.1 05/14/2014 Ot 715.90 05/14/2014 Ot 733.90 05/14/2014 Ot 789.00 05/14/2014 Ot 562.11 05/14/2014 ASHLEY DO, ELIZABETH Ot 272.0 05/14/2014 ASHLEY DO, ELIZABETH Ot 346.20 05/14/2014 ASHLEY DO, ELIZABETH Ot 401.1 05/14/2014 ASHLEY DO, ELIZABETH Ot 562.11 05/14/2014 ASHLEY DO, ELIZABETH Ot 715.90 05/14/2014 ASHLEY DO, ELIZABETH Ot 780.54 05/14/2014 ASHLEY DO, ELIZABETH Ot 783.1 05/14/2014 ASHLEY DO, ELIZABETH Ot 715.36 05/14/2014 ASHLEY DO, ELIZABETH Ot 719.46 05/14/2014 ASHLEY DO, ELIZABETH Ot 272.0 05/14/2014 ASHLEY DO, ELIZABETH Ot 715.90 05/14/2014 ASHLEY DO, ELIZABETH Ot 719.46 05/14/2014 ASHLEY DO, ELIZABETH Ot 780.54 05/14/2014 ASHLEY DO, ELIZABETH Ot 790.6 05/14/2014 ASHLEY DO, ELIZABETH Ot V58.69 05/14/2014 ASHLEY DO, ELIZABETH Ot V58.83 05/14/2014 ASHLEY DO, ELIZABETH Ot V70.0 05/14/2014 ASHLEY DO, ELIZABETH Ot 272.0 05/14/2014 ASHLEY DO, ELIZABETH Ot 305.00 05/14/2014 ASHLEY DO, ELIZABETH Ot 311 05/14/2014 ASHLEY DO, ELIZABETH Ot 401.1 05/14/2014 ASHLEY DO, ELIZABETH Ot 783.1 05/14/2014 Ot 272.0 05/14/2014 Ot 285.9 05/14/2014 Ot 562.11 05/14/2014 Ot 715.90 05/14/2014 Ot 733.90 05/14/2014 Ot 780.4 05/14/2014 Ot 784.0 05/14/2014 Ot 789.07 05/14/2014 Ot 272.0 05/14/2014 Ot 285.9 05/14/2014 Ot 562.11 05/14/2014 Ot 780.4 05/14/2014 Ot 786.09 05/14/2014 Ot 401.1 05/14/2014 Ot 780.4 05/14/2014 Ot 786.09 05/14/2014 Ot 401.1 05/14/2014 Ot 780.4 05/14/2014 Ot 786.09 05/14/2014 Ot 401.1 05/14/2014 Ot 414.9 05/14/2014 Ot 786.09 05/14/2014 Ot 272.0 05/14/2014 Ot 285.9 05/14/2014 Ot 401.1 05/14/2014 Ot 562.11 05/14/2014 Ot 789.04 05/14/2014 Ot 790.4 05/14/2014 Ot 791.9 05/14/2014 Ot 562.11 05/14/2014 Ot 562.11 05/14/2014 Ot V16.0 05/14/2014 Ot 272.0 05/14/2014 Ot 285.9 05/14/2014 Ot 401.1 05/14/2014 Ot 733.90 05/14/2014 Ot 790.4 05/14/2014 Ot V43.82 05/14/2014 Ot V76.12 05/14/2014 Ot 562.11 05/14/2014 Ot 789.04 05/14/2014 Ot 562.10 05/14/2014 Ot 272.0 05/14/2014 Ot 285.9 05/14/2014 Ot 401.1 05/14/2014 Ot V43.82 05/14/2014 Ot V76.12 05/14/2014 Ot 272.0 05/14/2014 Ot 285.9 05/14/2014 Ot 401.1 05/14/2014 Ot 715.90 05/14/2014 Ot 733.90 05/14/2014 Ot 789.00 05/14/2014 Ot 562.11 05/14/2014 DION CAMPO ELIZABETH Ot 272.0 05/14/2014 FERMIN ASHLEY DOI Ot 346.20 05/14/2014 ASHLEY DO, ELIZABETH Ot 401.1 05/14/2014 ASHLEY DO, ELIZABETH Ot 562.11 05/14/2014 ASHLEY DO, ELIZABETH Ot 715.90 05/14/2014 ASHLEY DO, ELIZABETH Ot 780.54 05/14/2014 ASHLEY DO, ELIZABETH Ot 783.1 05/14/2014 ASHELY DO, ELIZABETH Ot 715.36 05/14/2014 ASHLEY DO, ELIZABETH Ot 719.46 05/14/2014 ASHLEY DO, ELIZABETH Ot 272.0 05/14/2014 ASHLEY DO, ELIZABETH Ot 715.90 05/14/2014 ASHLEY DO, ELIZABETH Ot 719.46 05/14/2014 ASHLEY DO, ELIZABETH Ot 780.54 05/14/2014 ASHLEY DO, ELIZABETH Ot 790.6 05/14/2014 ASHLEY DO, ELIZABETH Ot V58.69 05/14/2014 ASHLEY DO, ELIZABETH Ot V58.83 05/14/2014 ASHLEY DO, ELIZABETH Ot V70.0 05/14/2014 ASHLEY DO, ELIZABETH Ot 272.0 05/14/2014 ASHLEY DO, ELIZABETH Ot 305.00 05/14/2014 ASHLEY DO, ELIZABETH Ot 311 05/14/2014 ASHLEY DO, ELIZABETH Ot 401.1 05/14/2014 ASHLEY DO, ELIZABETH Ot 783.1 05/25/2014 Ot 272.0 05/25/2014 Ot 285.9 05/25/2014 Ot 562.11 05/25/2014 Ot 715.90 05/25/2014 Ot 733.90 05/25/2014 Ot 780.4 05/25/2014 Ot 784.0 05/25/2014 Ot 789.07 05/25/2014 Ot 272.0 05/25/2014 Ot 285.9 05/25/2014 Ot 562.11 05/25/2014 Ot 780.4 05/25/2014 Ot 786.09 05/25/2014 Ot 401.1 05/25/2014 Ot 780.4 05/25/2014 Ot 786.09 05/25/2014 Ot 401.1 05/25/2014 Ot 780.4 05/25/2014 Ot 786.09 05/25/2014 Ot 401.1 05/25/2014 Ot 414.9 05/25/2014 Ot 786.09 05/25/2014 Ot 272.0 05/25/2014 Ot 285.9 05/25/2014 Ot 401.1 05/25/2014 Ot 562.11 05/25/2014 Ot 789.04 05/25/2014 Ot 790.4 05/25/2014 Ot 791.9 05/25/2014 Ot 562.11 05/25/2014 Ot 562.11 05/25/2014 Ot V16.0 05/25/2014 Ot 272.0 05/25/2014 Ot 285.9 05/25/2014 Ot 401.1 05/25/2014 Ot 733.90 05/25/2014 Ot 790.4 05/25/2014 Ot V43.82 05/25/2014 Ot V76.12 05/25/2014 Ot 562.11 05/25/2014 Ot 789.04 05/25/2014 Ot 562.10 05/25/2014 Ot 272.0 05/25/2014 Ot 285.9 05/25/2014 Ot 401.1 05/25/2014 Ot V43.82 05/25/2014 Ot V76.12 05/25/2014 Ot 272.0 05/25/2014 Ot 285.9 05/25/2014 Ot 401.1 05/25/2014 Ot 715.90 05/25/2014 Ot 733.90 05/25/2014 Ot 789.00 05/25/2014 Ot 562.11 05/25/2014 ASHLEY DO, ELIZABETH Ot 272.0 05/25/2014 ASHLEY DO, ELIZABETH Ot 346.20 05/25/2014 ASHLEY DO, ELIZABETH Ot 401.1 05/25/2014 ASHLEY DO, ELIZABETH Ot 562.11 05/25/2014 ASHLEY DO, ELIZABETH Ot 715.90 05/25/2014 ASHLEY DO, ELIZABETH Ot 780.54 05/25/2014 ASHLEY DO, ELIZABETH Ot 783.1 05/25/2014 ASHLEY DO, ELIZABETH Ot 715.36 05/25/2014 ASHLEY DO, ELIZABETH Ot 719.46 05/25/2014 ASHLEY DO, ELIZABETH Ot 272.0 05/25/2014 ASHLEY DO, ELIZABETH Ot 715.90 05/25/2014 ASHLEY DO, ELIZABETH Ot 719.46 05/25/2014 ASHLEY DO, ELIZABETH Ot 780.54 05/25/2014 ASHLEY DO, ELIZABETH Ot 790.6 05/25/2014 ASHLEY DO, ELIZABETH Ot V58.69 05/25/2014 ASHLEY DO, ELIZABETH Ot V58.83 05/25/2014 ASHLEY DO, ELIZABETH Ot V70.0 05/25/2014 ASHLEY DO, ELIZABETH Ot 272.0 05/25/2014 ASHLEY DO, ELIZABETH Ot 305.00 05/25/2014 ASHLEY DO, ELIZABETH Ot 311 05/25/2014 ASHLEY DO, ELIZABETH Ot 401.1 05/25/2014 ASHLEY DO, ELIZABETH Ot 783.1 06/04/2014 ASHLEY DO, ELIZABETH Ot 272.0 06/04/2014 ASHLEY DO, ELIZABETH Ot 305.00 06/04/2014 ASHLEY DO, ELIZABETH Ot 311 06/04/2014 ASHLEY DO, ELIZABETH Ot 401.1 06/04/2014 ASHLEY DO, ELIZABETH Ot 783.1 06/18/2014 ASHLEY DO, ELIZABETH Ot 789.00 11/18/2014 Ot 272.0 11/18/2014 Ot 285.9 11/18/2014 Ot 562.11 11/18/2014 Ot 780.4 11/18/2014 Ot 786.09 11/18/2014 Ot 401.1 11/18/2014 Ot 780.4 11/18/2014 Ot 786.09 11/18/2014 Ot 401.1 11/18/2014 Ot 780.4 11/18/2014 Ot 786.09 11/18/2014 Ot 401.1 11/18/2014 Ot 414.9 11/18/2014 Ot 786.09 11/18/2014 Ot 272.0 11/18/2014 Ot 285.9 11/18/2014 Ot 401.1 11/18/2014 Ot 562.11 11/18/2014 Ot 789.04 11/18/2014 Ot 790.4 11/18/2014 Ot 791.9 11/18/2014 Ot 562.11 11/18/2014 Ot 562.11 11/18/2014 Ot V16.0 11/18/2014 Ot 272.0 11/18/2014 Ot 285.9 11/18/2014 Ot 401.1 11/18/2014 Ot 733.90 11/18/2014 Ot 790.4 11/18/2014 Ot V43.82 11/18/2014 Ot V76.12 11/18/2014 Ot 562.11 11/18/2014 Ot 789.04 11/18/2014 Ot 562.10 11/18/2014 Ot 272.0 11/18/2014 Ot 285.9 11/18/2014 Ot 401.1 11/18/2014 Ot V43.82 11/18/2014 Ot V76.12 11/18/2014 Ot 272.0 11/18/2014 Ot 285.9 11/18/2014 Ot 401.1 11/18/2014 Ot 715.90 11/18/2014 Ot 733.90 11/18/2014 Ot 789.00 11/18/2014 Ot 562.11 11/18/2014 ASHLEY DO, ELIZABETH Ot 272.0 11/18/2014 ASHLEY DO, ELIZABETH Ot 346.20 11/18/2014 ASHLEY DO, ELIZABETH Ot 401.1 11/18/2014 ASHLEY DO, ELIZABETH Ot 562.11 11/18/2014 ASHLEY DO, ELIZABETH Ot 715.90 11/18/2014 ASHLEY DO, ELIZABETH Ot 780.54 11/18/2014 ASHLEY DO, ELIZABETH Ot 783.1 11/18/2014 ASHLEY DO, ELIZABETH Ot 715.36 11/18/2014 ASHLEY DO, ELIZABETH Ot 719.46 11/18/2014 ASHLEY DO, ELIZABETH Ot 272.0 11/18/2014 ASHLEY DO, ELIZABETH Ot 715.90 11/18/2014 ASHLEY DO, ELIZABETH Ot 719.46 11/18/2014 ASHLEY DO, ELIZABETH Ot 780.54 11/18/2014 ASHLEY DO, ELIZABETH Ot 790.6 11/18/2014 ASHLEY DO, ELIZABETH Ot V58.69 11/18/2014 ASHLEY DO, ELIZABETH Ot V58.83 11/18/2014 ASHLEY DO, ELIZABETH Ot V70.0 11/18/2014 ASHLEY DO, ELIZABETH Ot 272.0 11/18/2014 ASHLEY DO, ELIZABETH Ot 305.00 11/18/2014 ASHLEY DO, ELIZABETH Ot 311 11/18/2014 ASHLEY DO, ELIZABETH Ot 401.1 11/18/2014 ASHLEY DO, ELIZABETH Ot 783.1 11/18/2014 ASHLEY DO, ELIZABETH Ot 789.00 11/18/2014 ASHLEY DO, ELIZABETH Ot 272.0 11/18/2014 ASHLEY DO, ELIZABETH Ot 305.00 11/18/2014 ASHLEY DO, ELIZABETH Ot 311 11/18/2014 ASHLEY DO, ELIZABETH Ot 401.1 11/18/2014 ASHLEY DO, ELIZABETH Ot 783.1 12/02/2014 ASHLEY DO, ELIZABETH Ot 053.11 12/02/2014 ASHLEY DO, ELIZABETH Ot 246.8 12/02/2014 ASHLEY DO, ELIZABETH Ot 272.0 12/02/2014 ASHLEY DO, ELIZABETH Ot 305.00 12/02/2014 ASHLEY DO, ELIZABETH Ot 311 12/02/2014 ASHLEY DO, ELIZABETH Ot 401.1 12/02/2014 ASHLEY DO, ELIZABETH Ot 530.81 12/02/2014 ASHLEY DO, ELIZABETH Ot 715.90 12/02/2014 ASHLEY DO, ELIZABETH Ot 780.54 12/02/2014 ASHLEY DO, ELIZABETH Ot 783.1 12/02/2014 ASHLEY DO, ELIZABETH Ot 789.07 12/02/2014 ASHLEY DO, ELIZABETH Ot 790.29 12/02/2014 ASHLEY DO, ELIZABETH Ot V58.69 09/08/2015 Ot 272.0 PURE HYPERCHOLESTEROLEM 09/08/2015 Ot 285.9 ANEMIA NOS 09/08/2015 Ot 401.1 BENIGN HYPERTENSION 09/08/2015 Ot 733.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 09/08/2015 Ot 790.4 ELEV TRANSAMINASE/LDH 09/08/2015 Ot V43.82 BREAST REPLACEMENT STATUS 09/08/2015 Ot V76.12 OT SCREEN MAMMO-MALIGN NEOPLASM OF JENAE 09/08/2015 Ot 562.11 DIVERTICULITIS COLON (W/O MENT OF HEMORR 09/08/2015 Ot 789.04 ABDOMINAL PAIN, LEFT LOWER QUADRANT 09/08/2015 Ot 562.10 DIVERTICULOSIS COLON (W/O MENT OF HEMORR 09/08/2015 Ot 272.0 PURE HYPERCHOLESTEROLEM 09/08/2015 Ot 285.9 ANEMIA NOS 09/08/2015 Ot 401.1 BENIGN HYPERTENSION 09/08/2015 Ot V43.82 BREAST REPLACEMENT STATUS 09/08/2015 Ot V76.12 OTH SCREEN MAMMO-MALIGN NEOPLASM OF JENAE 09/08/2015 Ot 272.0 PURE HYPERCHOLESTEROLEM 09/08/2015 Ot 285.9 ANEMIA NOS 09/08/2015 Ot 401.1 BENIGN HYPERTENSION 09/08/2015 Ot 715.90 OSTEOARTHROS NOS-UNSPEC 09/08/2015 Ot 733.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 09/08/2015 Ot 789.00 ABDOMINAL PAIN, UNSPECIFIED SITE 09/08/2015 Ot 562.11 DIVERTICULITIS COLON (W/O MENT OF HEMORR 09/08/2015 ELIZABETH ASHLEY DO Ot 272.0 PURE HYPERCHOLESTEROLEM 09/08/2015 ELIZABETH ASHLEY DO Ot 346.20 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 09/08/2015 ELIZABETH ASHLEY DO Ot 401.1 BENIGN HYPERTENSION 09/08/2015 ELIZABETH ASHLEY DO Ot 562.11 DIVERTICULITIS COLON (W/O MENT OF HEMORR 09/08/2015 ELIZABETH ASHLEY DO Ot 715.90 OSTEOARTHROS NOS-UNSPEC 09/08/2015 ELIZABETH ASHLEY DO Ot 780.54 HYPERSOMNIA, UNSPECIFIED 09/08/2015 ELIZABETH ASHLEY DO Ot 783.1 ABNORMAL WEIGHT GAIN 09/08/2015 ELIZABETH ASHLEY DO Ot 715.36 LOC OSTEOARTH NOS-L/LEG 09/08/2015 ELIZABETH ASHLEY DO Ot 719.46 JOINT PAIN-L/LEG 09/08/2015 ELIZABETH ASHLEY DO Ot 272.0 PURE HYPERCHOLESTEROLEM 09/08/2015 ELIZABETH ASHLEY DO Ot 715.90 OSTEOARTHROS NOS-UNSPEC 09/08/2015 FERMIN ASHLEY DOI Ot 719.46 JOINT PAIN-L/LEG 09/08/2015 ELIZABETH ASHLEY DO Ot 780.54 HYPERSOMNIA, UNSPECIFIED 09/08/2015 ELIZABETH ASHLEY DO Ot 790.6 ABN BLOOD CHEMISTRY NEC 09/08/2015 ELIZABETH ASHLEY DO Ot V58.69 OTH MED,LT,CURRENT USE 09/08/2015 ELIZABETH ASHLEY DO Ot V58.83 ENCOUNTER FOR THERAPEUTIC DRUG MONITORIN 09/08/2015 ELIZABETH ASHLEY DO Ot V70.0 ROUTINE MEDICAL EXAM 09/08/2015 ASHLEY DO, ELIZABETH Ot 272.0 PURE HYPERCHOLESTEROLEM 09/08/2015 DION CAMPO ELIZABETH Ot 305.00 ALCOHOL ABUSE-UNSPEC 09/08/2015 DION CAMPO ELIZABETH Ot 311 DEPRESSIVE DISORDER NEC 09/08/2015 DION CAMPO ELIZABETH Ot 401.1 BENIGN HYPERTENSION 09/08/2015 DION CAMPO ELIZABETH Ot 783.1 ABNORMAL WEIGHT GAIN 09/08/2015 DION CAMPO ELIZABETH Ot 789.00 ABDOMINAL PAIN, UNSPECIFIED SITE 09/08/2015 DION CAMPO ELIZABETH Ot 053.11 GENICULATE HERPES ZOSTER 09/08/2015 DION CAMPO ELIZABETH Ot 246.8 DISORDERS OF THYROID NEC 09/08/2015 DION CAMPO ELIZABETH Ot 272.0 PURE HYPERCHOLESTEROLEM 09/08/2015 DION CAMPO ELIZABETH Ot 305.00 ALCOHOL ABUSE-UNSPEC 09/08/2015 DION CAMPO ELIZABETH Ot 311 DEPRESSIVE DISORDER NEC 09/08/2015 DION CAMPO ELIZABETH Ot 401.1 BENIGN HYPERTENSION 09/08/2015 DION CAMPO ELIZABETH Ot 530.81 ESOPHAGEAL REFLUX 09/08/2015 DION CAMPO ELIZABETH Ot 715.90 OSTEOARTHROS NOS-UNSPEC 09/08/2015 DION CAMPO ELIZABETH Ot 780.54 HYPERSOMNIA, UNSPECIFIED 09/08/2015 DION CAMPO ELIZABETH Ot 783.1 ABNORMAL WEIGHT GAIN 09/08/2015 DION CAMPO ELIZABETH Ot 789.07 ABDOMINAL PAIN, GENERALIZED 09/08/2015 DION CAMPO ELIZABETH Ot 790.29 OTHER ABNORMAL GLUCOSE 09/08/2015 DION CAMPO ELIZABETH Ot V58.69 OT MED,LT,CURRENT USE 09/10/2015 GENE MIGUEL MD Ot M53.3 SACROCOCCYGEAL DISORDERS, NOT ELSEWHERE 09/10/2015 GENE MIGUEL MD Ot M54.5 LOW BACK PAIN 09/10/2015 GENE MIGUEL MD Ot M53.3 SACROCOCCYGEAL DISORDERS, NOT ELSEWHERE 09/22/2015 GENE MIGUEL MD Ot M53.3 SACROCOCCYGEAL DISORDERS, NOT ELSEWHERE 09/22/2015 GENE MIGUEL MD Ot M53.3 SACROCOCCYGEAL DISORDERS, NOT ELSEWHERE 11/24/2015 Ot 272.0 PURE HYPERCHOLESTEROLEM 11/24/2015 Ot 285.9 ANEMIA NOS 11/24/2015 Ot 401.1 BENIGN HYPERTENSION 11/24/2015 Ot 733.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 11/24/2015 Ot 790.4 ELEV TRANSAMINASE/LDH 11/24/2015 Ot V43.82 BREAST REPLACEMENT STATUS 11/24/2015 Ot V76.12 OTH SCREEN MAMMO-MALIGN NEOPLASM OF JENAE 11/24/2015 Ot 562.11 DIVERTICULITIS COLON (W/O MENT OF HEMORR 11/24/2015 Ot 789.04 ABDOMINAL PAIN, LEFT LOWER QUADRANT 11/24/2015 Ot 562.10 DIVERTICULOSIS COLON (W/O MENT OF HEMORR 11/24/2015 Ot 272.0 PURE HYPERCHOLESTEROLEM 11/24/2015 Ot 285.9 ANEMIA NOS 11/24/2015 Ot 401.1 BENIGN HYPERTENSION 11/24/2015 Ot V43.82 BREAST REPLACEMENT STATUS 11/24/2015 Ot V76.12 OTH SCREEN MAMMO-MALIGN NEOPLASM OF JENAE 11/24/2015 Ot 272.0 PURE HYPERCHOLESTEROLEM 11/24/2015 Ot 285.9 ANEMIA NOS 11/24/2015 Ot 401.1 BENIGN HYPERTENSION 11/24/2015 Ot 715.90 OSTEOARTHROS NOS-UNSPEC 11/24/2015 Ot 733.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 11/24/2015 Ot 789.00 ABDOMINAL PAIN, UNSPECIFIED SITE 11/24/2015 Ot 562.11 DIVERTICULITIS COLON (W/O MENT OF HEMORR 11/24/2015 ELIZABETH ASHLEY DO Ot 272.0 PURE HYPERCHOLESTEROLEM 11/24/2015 ELIZABETH ASHLEY DO Ot 346.20 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 11/24/2015 ELIZABETH ASHLEY DO Ot 401.1 BENIGN HYPERTENSION 11/24/2015 ELIZABETH ASHLEY DO Ot 562.11 DIVERTICULITIS COLON (W/O MENT OF HEMORR 11/24/2015 ELIZABETH ASHLEY DO Ot 715.90 OSTEOARTHROS NOS-UNSPEC 11/24/2015 ELIZABETH ASHLEY DO Ot 780.54 HYPERSOMNIA, UNSPECIFIED 11/24/2015 ELIZABETH ASHLEY DO Ot 783.1 ABNORMAL WEIGHT GAIN 11/24/2015 ELIZABETH ASHLEY DO Ot 715.36 LOC OSTEOARTH NOS-L/LEG 11/24/2015 ELIZABETH ASHLEY DO Ot 719.46 JOINT PAIN-L/LEG 11/24/2015 ASHLEY DO, ELIZABETH Ot 272.0 PURE HYPERCHOLESTEROLEM 11/24/2015 DION CAMPO ELIZABETH Ot 715.90 OSTEOARTHROS NOS-UNSPEC 11/24/2015 FERMIN ASHLEY DOI Ot 719.46 JOINT PAIN-L/LEG 11/24/2015 DION CAMPO ELIZABETH Ot 780.54 HYPERSOMNIA, UNSPECIFIED 11/24/2015 DION CAMPO ELIZABETH Ot 790.6 ABN BLOOD CHEMISTRY NEC 11/24/2015 FERMIN ASHLEY DOI Ot V58.69 OTH MED,LT,CURRENT USE 11/24/2015 FERMIN ASHLEY DOI Ot V58.83 ENCOUNTER FOR THERAPEUTIC DRUG MONITORIN 11/24/2015 FERMIN ASHLEY DOI Ot V70.0 ROUTINE MEDICAL EXAM 11/24/2015 FERMIN ASHLEY DOI Ot 272.0 PURE HYPERCHOLESTEROLEM 11/24/2015 DION CAMPO ELIZABETH Ot 305.00 ALCOHOL ABUSE-UNSPEC 11/24/2015 DION CAMPO ELIZABETH Ot 311 DEPRESSIVE DISORDER NEC 11/24/2015 FERMIN ASHLEY DOI Ot 401.1 BENIGN HYPERTENSION 11/24/2015 FERMIN ASHLEY DOI Ot 783.1 ABNORMAL WEIGHT GAIN 11/24/2015 FERMIN ASHLEY DOI Ot 789.00 ABDOMINAL PAIN, UNSPECIFIED SITE 11/24/2015 FERMIN ASHLEY DOI Ot 053.11 GENICULATE HERPES ZOSTER 11/24/2015 DION CAMPO ELIZABETH Ot 246.8 DISORDERS OF THYROID NEC 11/24/2015 FERMIN ASHLEY DOI Ot 272.0 PURE HYPERCHOLESTEROLEM 11/24/2015 DION CAMPO ELIZABETH Ot 305.00 ALCOHOL ABUSE-UNSPEC 11/24/2015 FERMIN ASHLEY DOI Ot 311 DEPRESSIVE DISORDER NEC 11/24/2015 DION CAMPO ELIZABETH Ot 401.1 BENIGN HYPERTENSION 11/24/2015 FERMIN ASHLEY DOI Ot 530.81 ESOPHAGEAL REFLUX 11/24/2015 FERMIN ASHLEY DOI Ot 715.90 OSTEOARTHROS NOS-UNSPEC 11/24/2015 FERMIN ASHLEY DOI Ot 780.54 HYPERSOMNIA, UNSPECIFIED 11/24/2015 DION CAMPO ELIZABETH Ot 783.1 ABNORMAL WEIGHT GAIN 11/24/2015 DION CAMPO ELIZABETH Ot 789.07 ABDOMINAL PAIN, GENERALIZED 11/24/2015 DION CAMPO ELIZABETH Ot 790.29 OTHER ABNORMAL GLUCOSE 11/24/2015 DION CAMPO ELIZABETH Ot V58.69 OT MED,LT,CURRENT USE 11/24/2015 LAMONT WILCOX, GENE Morgan Ot M53.3 SACROCOCCYGEAL DISORDERS, NOT ELSEWHERE 11/25/2015 ASHLEY DO, ELIZABETH Ot E03.9 HYPOTHYROIDISM, UNSPECIFIED 11/25/2015 ASHLEY DO, ELIZABETH Ot E78.0 PURE HYPERCHOLESTEROLEMIA 11/25/2015 ASHLEY DO, ELIZABETH Ot E78.1 PURE HYPERGLYCERIDEMIA 11/25/2015 ASHLEY DO, ELIZABETH Ot R63.5 ABNORMAL WEIGHT GAIN 11/25/2015 ASHLEY DO, ELIZABETH Ot R73.9 HYPERGLYCEMIA, UNSPECIFIED 11/25/2015 ASHLEY DO, ELIZABETH Ot Z00.00 ENCNTR FOR GENERAL ADULT MEDICAL EXAM W11/30/2015 ASHLEY DO, ELIZABETH Ot E03.9 HYPOTHYROIDISM, UNSPECIFIED 11/30/2015 ASHLEY DO, ELIZABETH Ot E78.0 PURE HYPERCHOLESTEROLEMIA 11/30/2015 ASHLEY DO, ELIZABETH Ot E78.1 PURE HYPERGLYCERIDEMIA 11/30/2015 ASHLEY DO, ELIZABETH Ot R63.5 ABNORMAL WEIGHT GAIN 11/30/2015 ASHLEY DO, ELIZABETH Ot R73.9 HYPERGLYCEMIA, UNSPECIFIED 11/30/2015 ASHLEY DO, ELIZABETH Ot Z00.00 ENCNTR FOR GENERAL ADULT MEDICAL EXAM W12/09/2015 ASHLEY DO, ELIZABETH Ot E03.9 HYPOTHYROIDISM, UNSPECIFIED 12/09/2015 ASHLEY DO, ELIZABETH Ot E78.0 PURE HYPERCHOLESTEROLEMIA 12/09/2015 ASHLEY DO, ELIZABETH Ot E78.1 PURE HYPERGLYCERIDEMIA 12/09/2015 ASHLEY DO, ELIZABETH Ot R63.5 ABNORMAL WEIGHT GAIN 12/09/2015 ASHLEY DO, ELIZABETH Ot R73.9 HYPERGLYCEMIA, UNSPECIFIED 12/09/2015 ASHLEY DO, ELIZABETH Ot Z00.00 ENCNTR FOR GENERAL ADULT MEDICAL EXAM W06/09/2016 Ot 562.11 DIVERTICULITIS COLON (W/O MENT OF HEMORR 06/09/2016 Ot 789.04 ABDOMINAL PAIN, LEFT LOWER QUADRANT 06/09/2016 Ot 562.10 DIVERTICULOSIS COLON (W/O MENT OF HEMORR 06/09/2016 Ot 272.0 PURE HYPERCHOLESTEROLEM 06/09/2016 Ot 285.9 ANEMIA NOS 06/09/2016 Ot 401.1 BENIGN HYPERTENSION 06/09/2016 Ot V43.82 BREAST REPLACEMENT STATUS 06/09/2016 Ot V76.12 OTH SCREEN MAMMO-MALIGN NEOPLASM OF JENAE 06/09/2016 Ot 272.0 PURE HYPERCHOLESTEROLEM 06/09/2016 Ot 285.9 ANEMIA NOS 06/09/2016 Ot 401.1 BENIGN HYPERTENSION 06/09/2016 Ot 715.90 OSTEOARTHROS NOS-UNSPEC 06/09/2016 Ot 733.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 06/09/2016 Ot 789.00 ABDOMINAL PAIN, UNSPECIFIED SITE 06/09/2016 Ot 562.11 DIVERTICULITIS COLON (W/O MENT OF HEMORR 06/09/2016 FERMIN ASHLEY DOI Ot 272.0 PURE HYPERCHOLESTEROLEM 06/09/2016 FERMIN ASHLEY DOI Ot 346.20 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 06/09/2016 FERMIN ASHLEY DOI Ot 401.1 BENIGN HYPERTENSION 06/09/2016 ELIZABETH ASHLEY DO Ot 562.11 DIVERTICULITIS COLON (W/O MENT OF HEMORR 06/09/2016 FERMIN ASHLEY DOI Ot 715.90 OSTEOARTHROS NOS-UNSPEC 06/09/2016 FERMIN ASHLEY DOI Ot 780.54 HYPERSOMNIA, UNSPECIFIED 06/09/2016 FERMIN ASHLEY DOI Ot 783.1 ABNORMAL WEIGHT GAIN 06/09/2016 FERMIN ASHLEY DOI Ot 715.36 LOC OSTEOARTH NOS-L/LEG 06/09/2016 FERMIN ASHLEY DOI Ot 719.46 JOINT PAIN-L/LEG 06/09/2016 ELIZABETH ASHLEY DO Ot 272.0 PURE HYPERCHOLESTEROLEM 06/09/2016 FERMIN ASHLEY DOI Ot 715.90 OSTEOARTHROS NOS-UNSPEC 06/09/2016 DION CAMPO ELIZBAETH Ot 719.46 JOINT PAIN-L/LEG 06/09/2016 FERMIN ASHLEY DOI Ot 780.54 HYPERSOMNIA, UNSPECIFIED 06/09/2016 FERMIN ASHLEY DOI Ot 790.6 ABN BLOOD CHEMISTRY NEC 06/09/2016 ELIZABETH ASHLEY DO Ot V58.69 OTH MED,LT,CURRENT USE 06/09/2016 ELIZABETH ASHLEY DO Ot V58.83 ENCOUNTER FOR THERAPEUTIC DRUG MONITORIN 06/09/2016 ASHLEY DO, ELIZABETH Ot V70.0 ROUTINE MEDICAL EXAM 06/09/2016 DION DO, ELIZABETH Ot 272.0 PURE HYPERCHOLESTEROLEM 06/09/2016 ASHLEY DO, ELIZABETH Ot 305.00 ALCOHOL ABUSE-UNSPEC 06/09/2016 ASHLEY DO, ELIZABETH Ot 311 DEPRESSIVE DISORDER NEC 06/09/2016 ASHLEY DO, ELIZABETH Ot 401.1 BENIGN HYPERTENSION 06/09/2016 ASHLEY DO, ELIZABETH Ot 783.1 ABNORMAL WEIGHT GAIN 06/09/2016 ASHLEY DO, ELIZABETH Ot 789.00 ABDOMINAL PAIN, UNSPECIFIED SITE 06/09/2016 ASHLEY DO, ELIZABETH Ot 053.11 GENICULATE HERPES ZOSTER 06/09/2016 ASHLEY DO, ELIZABETH Ot 246.8 DISORDERS OF THYROID NEC 06/09/2016 ASHLEY DO, ELIZABETH Ot 272.0 PURE HYPERCHOLESTEROLEM 06/09/2016 ASHLEY DO, ELIZABETH Ot 305.00 ALCOHOL ABUSE-UNSPEC 06/09/2016 ASHLEY DO, ELIZABETH Ot 311 DEPRESSIVE DISORDER NEC 06/09/2016 ASHLEY DO, ELIZABETH Ot 401.1 BENIGN HYPERTENSION 06/09/2016 ASHLEY DO, ELIZABETH Ot 530.81 ESOPHAGEAL REFLUX 06/09/2016 ASHLEY DO, ELIZABETH Ot 715.90 OSTEOARTHROS NOS-UNSPEC 06/09/2016 ASHLEY DO, ELIZABETH Ot 780.54 HYPERSOMNIA, UNSPECIFIED 06/09/2016 ASHLEY DO, ELIZABETH Ot 783.1 ABNORMAL WEIGHT GAIN 06/09/2016 ASHLEY DO, ELIZABETH Ot 789.07 ABDOMINAL PAIN, GENERALIZED 06/09/2016 ASHLEY DO, ELIZABETH Ot 790.29 OTHER ABNORMAL GLUCOSE 06/09/2016 ASHLEY DO, ELIZABETH Ot V58.69 OT MED,LT,CURRENT USE 06/09/2016 LAMONT WILCOX, GENE Morgan Ot M53.3 SACROCOCCYGEAL DISORDERS, NOT ELSEWHERE 06/09/2016 ASHLEY DO, ELIZABETH Ot E03.9 HYPOTHYROIDISM, UNSPECIFIED 06/09/2016 ASHLEY DO, ELIZABETH Ot E78.0 PURE HYPERCHOLESTEROLEMIA 06/09/2016 ASHLEY DO, ELIZABETH Ot E78.1 PURE HYPERGLYCERIDEMIA 06/09/2016 ASHLEY DO, ELIZABETH Ot R63.5 ABNORMAL WEIGHT GAIN 06/09/2016 ASHLEY DO, ELIZABETH Ot R73.9 HYPERGLYCEMIA, UNSPECIFIED 06/09/2016 ASHLEY DO, ELIZABETH Ot Z00.00 ENCNTR FOR GENERAL ADULT MEDICAL EXAM W/ 06/12/2016 ELIZABETH ASHLEY DO Ot Z12.31 ENCNTR SCREEN MAMMOGRAM FOR MALIGNANT NE 06/21/2016 ELIZABETH ASHLEY DO Ot Z12.31 ENCNTR SCREEN MAMMOGRAM FOR MALIGNANT NE 08/17/2016 GENE MIGUEL MD Ot M53.3 SACROCOCCYGEAL DISORDERS, NOT ELSEWHERE 08/17/2016 GENE MIGUEL MD Ot M54.5 LOW BACK PAIN 11/30/2016 Ot 272.0 PURE HYPERCHOLESTEROLEM 11/30/2016 Ot 285.9 ANEMIA NOS 11/30/2016 Ot 401.1 BENIGN HYPERTENSION 11/30/2016 Ot V43.82 BREAST REPLACEMENT STATUS 11/30/2016 Ot V76.12 OTH SCREEN MAMMO-MALIGN NEOPLASM OF JENAE 11/30/2016 Ot 272.0 PURE HYPERCHOLESTEROLEM 11/30/2016 Ot 285.9 ANEMIA NOS 11/30/2016 Ot 401.1 BENIGN HYPERTENSION 11/30/2016 Ot 715.90 OSTEOARTHROS NOS-UNSPEC 11/30/2016 Ot 733.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 11/30/2016 Ot 789.00 ABDOMINAL PAIN, UNSPECIFIED SITE 11/30/2016 Ot 562.11 DIVERTICULITIS COLON (W/O MENT OF HEMORR 11/30/2016 ELIZABETH ASHLEY DO Ot 272.0 PURE HYPERCHOLESTEROLEM 11/30/2016 ELIZABETH ASHLEY DO Ot 346.20 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 11/30/2016 ELIZABETH ASHLEY DO Ot 401.1 BENIGN HYPERTENSION 11/30/2016 ELIZABETH ASHLEY DO Ot 562.11 DIVERTICULITIS COLON (W/O MENT OF HEMORR 11/30/2016 ELIZABETH ASHLEY DO Ot 715.90 OSTEOARTHROS NOS-UNSPEC 11/30/2016 ELIZABETH ASHLEY DO Ot 780.54 HYPERSOMNIA, UNSPECIFIED 11/30/2016 ELIZABETH ASHLEY DO Ot 783.1 ABNORMAL WEIGHT GAIN 11/30/2016 ELIZABETH ASHLEY DO Ot 715.36 LOC OSTEOARTH NOS-L/LEG 11/30/2016 ELIZABETH ASHLEY DO Ot 719.46 JOINT PAIN-L/LEG 11/30/2016 ELIZABETH ASHLEY DO Ot 272.0 PURE HYPERCHOLESTEROLEM 11/30/2016 ASHLEY DO, ELIZABETH Ot 715.90 OSTEOARTHROS NOS-UNSPEC 11/30/2016 DION CAMPO ELIZABETH Ot 719.46 JOINT PAIN-L/LEG 11/30/2016 DION CAMPO ELIZABETH Ot 780.54 HYPERSOMNIA, UNSPECIFIED 11/30/2016 DION CAMPO ELIZABETH Ot 790.6 ABN BLOOD CHEMISTRY NEC 11/30/2016 FERMIN ASHLEY DOI Ot V58.69 OTH MED,LT,CURRENT USE 11/30/2016 FERMIN ASHLEY DOI Ot V58.83 ENCOUNTER FOR THERAPEUTIC DRUG MONITORIN 11/30/2016 FERMIN ASHLEY DOI Ot V70.0 ROUTINE MEDICAL EXAM 11/30/2016 DION CAMPO ELIZABETH Ot 272.0 PURE HYPERCHOLESTEROLEM 11/30/2016 DION CAMPO ELIZABETH Ot 305.00 ALCOHOL ABUSE-UNSPEC 11/30/2016 DION CAMPO ELIZABETH Ot 311 DEPRESSIVE DISORDER NEC 11/30/2016 DION CAMPO ELIZABETH Ot 401.1 BENIGN HYPERTENSION 11/30/2016 FERMIN ASHLEY DOI Ot 783.1 ABNORMAL WEIGHT GAIN 11/30/2016 DION CAMPO ELIZABETH Ot 789.00 ABDOMINAL PAIN, UNSPECIFIED SITE 11/30/2016 DION CAMPO ELIZABETH Ot 053.11 GENICULATE HERPES ZOSTER 11/30/2016 FERMIN ASHLEY DOI Ot 246.8 DISORDERS OF THYROID NEC 11/30/2016 DION CAMPO ELIZABETH Ot 272.0 PURE HYPERCHOLESTEROLEM 11/30/2016 DION CAMPO ELIZABETH Ot 305.00 ALCOHOL ABUSE-UNSPEC 11/30/2016 FERMIN ASHLEY DOI Ot 311 DEPRESSIVE DISORDER NEC 11/30/2016 DION CAMPO ELIZABETH Ot 401.1 BENIGN HYPERTENSION 11/30/2016 DION CAMPO ELIZABETH Ot 530.81 ESOPHAGEAL REFLUX 11/30/2016 DION CAMPO ELIZABETH Ot 715.90 OSTEOARTHROS NOS-UNSPEC 11/30/2016 FERMIN ASHLEY DOI Ot 780.54 HYPERSOMNIA, UNSPECIFIED 11/30/2016 DION CAMPO ELIZABETH Ot 783.1 ABNORMAL WEIGHT GAIN 11/30/2016 DION CAMPO ELIZABETH Ot 789.07 ABDOMINAL PAIN, GENERALIZED 11/30/2016 DION CAMPO ELIZABETH Ot 790.29 OTHER ABNORMAL GLUCOSE 11/30/2016 FERMIN ASHLEY DOI Ot V58.69 OTH MED,LT,CURRENT USE 11/30/2016 LAMONT WILCOX, GENE Morgan Ot M53.3 SACROCOCCYGEAL DISORDERS, NOT ELSEWHERE 11/30/2016 ASHLEY DO, ELIZABETH Ot E03.9 HYPOTHYROIDISM, UNSPECIFIED 11/30/2016 ASHLEY DO, ELIZABETH Ot E78.0 PURE HYPERCHOLESTEROLEMIA 11/30/2016 ASHLEY DO, ELIZABETH Ot E78.1 PURE HYPERGLYCERIDEMIA 11/30/2016 ASHLEY DO, ELIZABETH Ot R63.5 ABNORMAL WEIGHT GAIN 11/30/2016 ASHLEY DO, ELIZABETH Ot R73.9 HYPERGLYCEMIA, UNSPECIFIED 11/30/2016 ASHLEY DO, ELIZABETH Ot Z00.00 ENCNTR FOR GENERAL ADULT MEDICAL EXAM W11/30/2016 ASHLEY DO, ELIZABETH Ot Z12.31 ENCNTR SCREEN MAMMOGRAM FOR MALIGNANT NE 12/01/2016 ASHLEY DO, ELIZABETH Ot E03.9 HYPOTHYROIDISM, UNSPECIFIED 12/01/2016 ASHLEY DO, ELIZABETH Ot E78.00 PURE HYPERCHOLESTEROLEMIA, UNSPECIFIED 12/01/2016 ASHLEY DO, ELIZABETH Ot R73.9 HYPERGLYCEMIA, UNSPECIFIED 12/27/2016 ASHLEY DO, ELIZABETH Ot E03.9 HYPOTHYROIDISM, UNSPECIFIED 12/27/2016 ASHLEY DO, ELIZABETH Ot E78.00 PURE HYPERCHOLESTEROLEMIA, UNSPECIFIED 12/27/2016 ASHLEY DO, ELIZABETH Ot R73.9 HYPERGLYCEMIA, UNSPECIFIED 05/30/2017 ASHLEY DO, ELIZABETH Ot G89.29 OTHER CHRONIC PAIN 05/30/2017 ASHLEY DO, ELIZABETH Ot M54.9 DORSALGIA, UNSPECIFIED 05/30/2017 ASHLEY DO, ELIZABETH Ot R07.9 CHEST PAIN, UNSPECIFIED 05/30/2017 ASHLEY DO, ELIZABETH Ot R50.9 FEVER, UNSPECIFIED 05/31/2017 ASHLEY DO, ELIZABETH Ot M54.5 LOW BACK PAIN 05/31/2017 ASHLEY DO, ELIZABETH Ot R10.84 GENERALIZED ABDOMINAL PAIN 05/31/2017 ASHLEY DO, ELIZABETH Ot Z87.19 PERSONAL HISTORY OF OTHER DISEASES OF 06/13/2017 ASHLEY DO, ELIZABETH Ot M54.5 LOW BACK PAIN 06/13/2017 ASHLEY DO, ELIZABETH Ot R10.84 GENERALIZED ABDOMINAL PAIN 06/13/2017 ASHLEY DO, ELIZABETH Ot Z87.19 PERSONAL HISTORY OF OTHER DISEASES OF 06/21/2017 Ot V43.82 BREAST REPLACEMENT STATUS 06/21/2017 Ot V76.12 OTH SCREEN MAMMO-MALIGN NEOPLASM OF JENAE 06/21/2017 Ot 272.0 PURE HYPERCHOLESTEROLEM 06/21/2017 Ot 285.9 ANEMIA NOS 06/21/2017 Ot 401.1 BENIGN HYPERTENSION 06/21/2017 Ot 715.90 OSTEOARTHROS NOS-UNSPEC 06/21/2017 Ot 733.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 06/21/2017 Ot 789.00 ABDOMINAL PAIN, UNSPECIFIED SITE 06/21/2017 Ot 562.11 DIVERTICULITIS COLON (W/O MENT OF HEMORR 06/21/2017 DION CAMPO ELIZABETH Ot 272.0 PURE HYPERCHOLESTEROLEM 06/21/2017 FERMIN ASHLEY DOI Ot 346.20 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 06/21/2017 DION CAMPO ELIZABETH Ot 401.1 BENIGN HYPERTENSION 06/21/2017 FERMIN ASHLEY DOI Ot 562.11 DIVERTICULITIS COLON (W/O MENT OF HEMORR 06/21/2017 ELIZABETH ASHLEY DO Ot 715.90 OSTEOARTHROS NOS-UNSPEC 06/21/2017 FERMIN ASHLEY DOI Ot 780.54 HYPERSOMNIA, UNSPECIFIED 06/21/2017 FERMIN ASHLEY DOI Ot 783.1 ABNORMAL WEIGHT GAIN 06/21/2017 FERMIN ASHLEY DOI Ot 715.36 LOC OSTEOARTH NOS-L/LEG 06/21/2017 FERMIN ASHLEY DOI Ot 719.46 JOINT PAIN-L/LEG 06/21/2017 ELIZABETH ASHLEY DO Ot 272.0 PURE HYPERCHOLESTEROLEM 06/21/2017 FERMIN ASHLEY DOI Ot 715.90 OSTEOARTHROS NOS-UNSPEC 06/21/2017 DION CAMPO ELIZABETH Ot 719.46 JOINT PAIN-L/LEG 06/21/2017 FERMIN ASHLEY DOI Ot 780.54 HYPERSOMNIA, UNSPECIFIED 06/21/2017 FERMIN ASHLEY DOI Ot 790.6 ABN BLOOD CHEMISTRY NEC 06/21/2017 FERMIN ASHLEY DOI Ot V58.69 OTH MED,LT,CURRENT USE 06/21/2017 FERMIN ASHLEY DOI Ot V58.83 ENCOUNTER FOR THERAPEUTIC DRUG MONITORIN 06/21/2017 ELIZABETH ASHLEY DO Ot V70.0 ROUTINE MEDICAL EXAM 06/21/2017 ASHLEY DO, ELIZABETH Ot 272.0 PURE HYPERCHOLESTEROLEM 06/21/2017 ASHLEY DO, ELIZABETH Ot 305.00 ALCOHOL ABUSE-UNSPEC 06/21/2017 ASHLEY DO, ELIZABETH Ot 311 DEPRESSIVE DISORDER NEC 06/21/2017 ASHLEY DO, ELIZABETH Ot 401.1 BENIGN HYPERTENSION 06/21/2017 ASHLEY DO, ELIZABETH Ot 783.1 ABNORMAL WEIGHT GAIN 06/21/2017 ASHLEY DO, ELIZABETH Ot 789.00 ABDOMINAL PAIN, UNSPECIFIED SITE 06/21/2017 ASHLEY DO, ELIZABETH Ot 053.11 GENICULATE HERPES ZOSTER 06/21/2017 ASHLEY DO, ELIZABETH Ot 246.8 DISORDERS OF THYROID NEC 06/21/2017 ASHLEY DO, ELIZABETH Ot 272.0 PURE HYPERCHOLESTEROLEM 06/21/2017 ASHLEY DO, ELIZABETH Ot 305.00 ALCOHOL ABUSE-UNSPEC 06/21/2017 ASHLEY DO, ELIZABETH Ot 311 DEPRESSIVE DISORDER NEC 06/21/2017 ASHLEY DO, ELIZABETH Ot 401.1 BENIGN HYPERTENSION 06/21/2017 ASHLEY DO, ELIZABETH Ot 530.81 ESOPHAGEAL REFLUX 06/21/2017 ASHLEY DO, ELIZABETH Ot 715.90 OSTEOARTHROS NOS-UNSPEC 06/21/2017 ASHLEY DO, ELIZABETH Ot 780.54 HYPERSOMNIA, UNSPECIFIED 06/21/2017 ASHLEY DO, ELIZABETH Ot 783.1 ABNORMAL WEIGHT GAIN 06/21/2017 ASHLEY DO, ELIZABETH Ot 789.07 ABDOMINAL PAIN, GENERALIZED 06/21/2017 ASHLEY DO, ELIZABETH Ot 790.29 OTHER ABNORMAL GLUCOSE 06/21/2017 ASHLEY DO, ELIZABETH Ot V58.69 OT MED,LT,CURRENT USE 06/21/2017 LAMONT WILCOX, GENE Morgan Ot M53.3 SACROCOCCYGEAL DISORDERS, NOT ELSEWHERE 06/21/2017 ASHLEY DO, ELIZABETH Ot E03.9 HYPOTHYROIDISM, UNSPECIFIED 06/21/2017 ASHLEY DO, ELIZABETH Ot E78.0 PURE HYPERCHOLESTEROLEMIA 06/21/2017 ASHLEY DO, ELIZABETH Ot E78.1 PURE HYPERGLYCERIDEMIA 06/21/2017 ASHLEY DO, ELIZABETH Ot R63.5 ABNORMAL WEIGHT GAIN 06/21/2017 ASHLEY DO, ELIZABETH Ot R73.9 HYPERGLYCEMIA, UNSPECIFIED 06/21/2017 ASHLEY DO, ELIZABETH Ot Z00.00 ENCNTR FOR GENERAL ADULT MEDICAL EXAM W/ 06/21/2017 DION CAMPO ELIZABETH Ot Z12.31 ENCNTR SCREEN MAMMOGRAM FOR MALIGNANT NE 06/21/2017 DION CAMPO ELIZABETH Ot E03.9 HYPOTHYROIDISM, UNSPECIFIED 06/21/2017 DION DO, ELIZABETH Ot E78.00 PURE HYPERCHOLESTEROLEMIA, UNSPECIFIED 06/21/2017 DION CAMPO ELIZABETH Ot R73.9 HYPERGLYCEMIA, UNSPECIFIED 06/21/2017 DION DO, ELIZABETH Ot G89.29 OTHER CHRONIC PAIN 06/21/2017 DION DO, ELIZABETH Ot M54.9 DORSALGIA, UNSPECIFIED 06/21/2017 ASHLEY DO, ELIZABETH Ot R07.9 CHEST PAIN, UNSPECIFIED 06/21/2017 AHSLEY DO, ELIZABETH Ot R50.9 FEVER, UNSPECIFIED 06/21/2017 ASHLEY DO, ELIZABETH Ot M54.5 LOW BACK PAIN 06/21/2017 DION CAMPO, ELIZABETH Ot R10.84 GENERALIZED ABDOMINAL PAIN 06/21/2017 DION CAMPO ELIZABETH Ot Z87.19 PERSONAL HISTORY OF OTHER DISEASES OF TH 06/25/2017 DION CAMPO ELIZABETH Ot R07.9 CHEST PAIN, UNSPECIFIED 06/25/2017 ASHLEY DO, ELIZABETH Ot R07.9 CHEST PAIN, UNSPECIFIED 07/05/2017 DION CAMPO, ELIZABETH Ot R07.9 CHEST PAIN, UNSPECIFIED Procedures There is no data. Results Test Result Range Complete blood count (CBC) with automated white blood cell (WBC) differential - 11/30/16 08:36 Blood leukocytes automated count (number/volume) 6.7 10*3/uL 4.3-11.0 Blood erythrocytes automated count (number/volume) 4.14 10*6/uL 4.35-5.85 Venous blood hemoglobin measurement (mass/volume) 13.3 g/dL 11.5-16.0 Blood hematocrit (volume fraction) 40 % 35-52 Automated erythrocyte mean corpuscular volume 98 [foz_us] 80-99 Automated erythrocyte mean corpuscular hemoglobin (mass per erythrocyte) 32 pg 25-34 Automated erythrocyte mean corpuscular hemoglobin concentration measurement ( mass/volume) 33 g/dL 32-36 Automated erythrocyte distribution width ratio 13.7 % 10.0-14.5 Automated blood platelet count (count/volume) 323 10*3/uL 130-400 Automated blood platelet mean volume measurement 10.5 [foz_us] 7.4-10.4 Automated blood neutrophils/100 leukocytes 63 % 42-75 Automated blood lymphocytes/100 leukocytes 28 % 12-44 Blood monocytes/100 leukocytes 7 % 0-12 Automated blood eosinophils/100 leukocytes 3 % 0-10 Automated blood basophils/100 leukocytes 0 % 0-10 Blood neutrophils automated count (number/volume) 4.2 10*3 1.8-7.8 Blood lymphocytes automated count (number/volume) 1.8 10*3 1.0-4.0 Blood monocytes automated count (number/volume) 0.5 10*3 0.0-1.0 Automated eosinophil count 0.2 10*3/uL 0.0-0.3 Automated blood basophil count (count/volume) 0.0 10*3/uL 0.0-0.1 Comprehensive metabolic panel - 11/30/16 08:36 Serum or plasma sodium measurement (moles/volume) 138 mmol/L 135-145 Serum or plasma potassium measurement (moles/volume) 4.4 mmol/L 3.6-5.0 Serum or plasma chloride measurement (moles/volume) 104 mmol/L 98-107 Carbon dioxide 26 mmol/L 21-32 Serum or plasma anion gap determination (moles/volume) 8 mmol/L 5-14 Serum or plasma urea nitrogen measurement (mass/volume) 15 mg/dL 7-18 Serum or plasma creatinine measurement (mass/volume) 0.81 mg/dL 0.60-1.30 Serum or plasma urea nitrogen/creatinine mass ratio 19 NRG Serum or plasma creatinine measurement with calculation of estimated glomerular filtration rate > NRG Serum or plasma glucose measurement (mass/volume) 109 mg/dL 70-105 Serum or plasma calcium measurement (mass/volume) 10.0 mg/dL 8.5-10.1 Serum or plasma total bilirubin measurement (mass/volume) 0.4 mg/dL 0.1-1.0 Serum or plasma alkaline phosphatase measurement (enzymatic activity/volume) 59 U/L 40-136 Serum or plasma aspartate aminotransferase measurement (enzymatic activity/ volume) 21 U/L 5-34 Serum or plasma alanine aminotransferase measurement (enzymatic activity/volume ) 33 U/L 0-55 Serum or plasma protein measurement (mass/volume) 7.8 g/dL 6.4-8.2 Serum or plasma albumin measurement (mass/volume) 4.0 g/dL 3.2-4.5 Lipid 1996 panel - 11/30/16 08:36 Serum or plasma triglyceride measurement (mass/volume) 120 mg/dL <150 Serum or plasma cholesterol measurement (mass/volume) 249 mg/dL < 200 Serum or plasma cholesterol in HDL measurement (mass/volume) 75 mg/ dL 40-60 Cholesterol in LDL [mass/volume] in serum or plasma by direct assay 157 mg/dL 1-129 Serum or plasma cholesterol in VLDL measurement (mass/volume) 24 mg/ dL 5-40 Hemoglobin A1c - 11/30/16 08:36 Hemoglobin A1c 4.9 % 4.5-6.2 THYROID STIMULATING HORMONE - 11/30/16 08:36 THYROID STIMULATING HORMONE 1.83 u[iU]/mL 0.35-4.94 Serum or plasma thyroxine (T4) free measurement (mass/volume) - 11/30/16 08:36 Serum or plasma thyroxine (T4) free measurement (mass/volume) 0.98 ng/dL 0.70-1.48 Complete blood count (CBC) with automated white blood cell (WBC) differential - 05/10/17 15:31 Blood leukocytes automated count (number/volume) 10.1 10*3/uL 4.3-11.0 Blood erythrocytes automated count (number/volume) 4.10 10*6/uL 4.35-5.85 Venous blood hemoglobin measurement (mass/volume) 13.4 g/dL 11.5-16.0 Blood hematocrit (volume fraction) 40 % 35-52 Automated erythrocyte mean corpuscular volume 97 [foz_us] 80-99 Automated erythrocyte mean corpuscular hemoglobin (mass per erythrocyte) 33 pg 25-34 Automated erythrocyte mean corpuscular hemoglobin concentration measurement ( mass/volume) 34 g/dL 32-36 Automated erythrocyte distribution width ratio 12.8 % 10.0-14.5 Automated blood platelet count (count/volume) 289 10*3/uL 130-400 Automated blood platelet mean volume measurement 10.3 [foz_us] 7.4-10.4 Automated blood neutrophils/100 leukocytes 64 % 42-75 Automated blood lymphocytes/100 leukocytes 27 % 12-44 Blood monocytes/100 leukocytes 8 % 0-12 Automated blood eosinophils/100 leukocytes 1 % 0-10 Automated blood basophils/100 leukocytes 0 % 0-10 Blood neutrophils automated count (number/volume) 6.5 10*3 1.8-7.8 Blood lymphocytes automated count (number/volume) 2.7 10*3 1.0-4.0 Blood monocytes automated count (number/volume) 0.8 10*3 0.0-1.0 Automated eosinophil count 0.1 10*3/uL 0.0-0.3 Automated blood basophil count (count/volume) 0.0 10*3/uL 0.0-0.1 Comprehensive metabolic panel - 05/10/17 15:31 Serum or plasma sodium measurement (moles/volume) 137 mmol/L 135-145 Serum or plasma potassium measurement (moles/volume) 3.9 mmol/L 3.6-5.0 Serum or plasma chloride measurement (moles/volume) 103 mmol/L 98-107 Carbon dioxide 23 mmol/L 21-32 Serum or plasma anion gap determination (moles/volume) 11 mmol/L 5-14 Serum or plasma urea nitrogen measurement (mass/volume) 18 mg/dL 7-18 Serum or plasma creatinine measurement (mass/volume) 0.95 mg/dL 0.60-1.30 Serum or plasma urea nitrogen/creatinine mass ratio 19 NRG Serum or plasma creatinine measurement with calculation of estimated glomerular filtration rate 58 NRG Serum or plasma glucose measurement (mass/volume) 94 mg/dL 70-105 Serum or plasma calcium measurement (mass/volume) 9.4 mg/dL 8.5-10.1 Serum or plasma total bilirubin measurement (mass/volume) 0.2 mg/dL 0.1-1.0 Serum or plasma alkaline phosphatase measurement (enzymatic activity/volume) 61 U/L 40-136 Serum or plasma aspartate aminotransferase measurement (enzymatic activity/ volume) 19 U/L 5-34 Serum or plasma alanine aminotransferase measurement (enzymatic activity/volume ) 25 U/L 0-55 Serum or plasma protein measurement (mass/volume) 8.1 g/dL 6.4-8.2 Serum or plasma albumin measurement (mass/volume) 4.2 g/dL 3.2-4.5 Erythrocyte sedimentation rate by westergren method - 05/10/17 15:31 Erythrocyte sedimentation rate by westergren method 29 mm 0-30 Serum or plasma troponin i.cardiac measurement (mass/volume) - 05/10/17 15:31 Serum or plasma troponin i.cardiac measurement (mass/volume) < ng/ mL <0.30 Complete urinalysis with reflex to culture - 05/10/17 15:37 Urine color determination YELLOW NRG Urine clarity determination CLEAR NRG Urine pH measurement by test strip 5 5-9 Specific gravity of urine by test strip 1.015 1.016- 1.022 Urine protein assay by test strip, semi-quantitative NEGATIVE NEGATIVE Urine glucose detection by automated test strip NEGATIVE NEGATIVE Erythrocytes detection in urine sediment by light microscopy NEGATIVE NEGATIVE Urine ketones detection by automated test strip NEGATIVE NEGATIVE Urine nitrite detection by test strip NEGATIVE NEGATIVE Urine total bilirubin detection by test strip NEGATIVE NEGATIVE Urine urobilinogen measurement by automated test strip (mass/volume) NORMAL NORMAL Urine leukocyte esterase detection by dipstick 1+ NEGATIVE Automated urine sediment erythrocyte count by microscopy (number/high power field) NONE NRG Automated urine sediment leukocyte count by microscopy (number/high power field ) [HPF] NRG Bacteria detection in urine sediment by light microscopy FEW NRG Squamous epithelial cells detection in urine sediment by light microscopy 10-25 NRG Crystals detection in urine sediment by light microscopy PRESENT NRG Casts detection in urine sediment by light microscopy NONE NRG Mucus detection in urine sediment by light microscopy NEGATIVE NRG Complete urinalysis with reflex to culture NO NRG Amorphous sediment detection in urine sediment by light microscopy RARE MOHINDER URATES NRG Complete blood count (CBC) with automated white blood cell (WBC) differential - 05/24/17 12:50 Blood leukocytes automated count (number/volume) 7.7 10*3/uL 4.3-11.0 Blood erythrocytes automated count (number/volume) 4.11 10*6/uL 4.35-5.85 Venous blood hemoglobin measurement (mass/volume) 13.5 g/dL 11.5-16.0 Blood hematocrit (volume fraction) 40 % 35-52 Automated erythrocyte mean corpuscular volume 96 [foz_us] 80-99 Automated erythrocyte mean corpuscular hemoglobin (mass per erythrocyte) 33 pg 25-34 Automated erythrocyte mean corpuscular hemoglobin concentration measurement ( mass/volume) 34 g/dL 32-36 Automated erythrocyte distribution width ratio 13.0 % 10.0-14.5 Automated blood platelet count (count/volume) 304 10*3/uL 130-400 Automated blood platelet mean volume measurement 10.4 [foz_us] 7.4-10.4 Automated blood neutrophils/100 leukocytes 57 % 42-75 Automated blood lymphocytes/100 leukocytes 33 % 12-44 Blood monocytes/100 leukocytes 8 % 0-12 Automated blood eosinophils/100 leukocytes 1 % 0-10 Automated blood basophils/100 leukocytes 0 % 0-10 Blood neutrophils automated count (number/volume) 4.4 10*3 1.8-7.8 Blood lymphocytes automated count (number/volume) 2.6 10*3 1.0-4.0 Blood monocytes automated count (number/volume) 0.6 10*3 0.0-1.0 Automated eosinophil count 0.1 10*3/uL 0.0-0.3 Automated blood basophil count (count/volume) 0.0 10*3/uL 0.0-0.1 Comprehensive metabolic panel - 05/24/17 12:50 Serum or plasma sodium measurement (moles/volume) 137 mmol/L 135-145 Serum or plasma potassium measurement (moles/volume) 4.1 mmol/L 3.6-5.0 Serum or plasma chloride measurement (moles/volume) 104 mmol/L 98-107 Carbon dioxide 21 mmol/L 21-32 Serum or plasma anion gap determination (moles/volume) 12 mmol/L 5-14 Serum or plasma urea nitrogen measurement (mass/volume) 24 mg/dL 7-18 Serum or plasma creatinine measurement (mass/volume) 0.81 mg/dL 0.60-1.30 Serum or plasma urea nitrogen/creatinine mass ratio 30 NRG Serum or plasma creatinine measurement with calculation of estimated glomerular filtration rate > NRG Serum or plasma glucose measurement (mass/volume) 99 mg/dL 70-105 Serum or plasma calcium measurement (mass/volume) 9.9 mg/dL 8.5-10.1 Serum or plasma total bilirubin measurement (mass/volume) 0.2 mg/dL 0.1-1.0 Serum or plasma alkaline phosphatase measurement (enzymatic activity/volume) 56 U/L 40-136 Serum or plasma aspartate aminotransferase measurement (enzymatic activity/ volume) 20 U/L 5-34 Serum or plasma alanine aminotransferase measurement (enzymatic activity/volume ) 29 U/L 0-55 Serum or plasma protein measurement (mass/volume) 7.9 g/dL 6.4-8.2 Serum or plasma albumin measurement (mass/volume) 4.1 g/dL 3.2-4.5 Erythrocyte sedimentation rate by westergren method - 05/24/17 12:50 Erythrocyte sedimentation rate by westergren method 29 mm 0-30 Encounters ACCT No. Visit Date/Time Discharge Status Pt. Type Provider Facility Loc./Unit Complaint [id number] 06/22/2017 09:30:00 06/22/2017 23:59:59 CLS Preadmit ASHLEY DO, ELIZABETH [facility] CARD CHEST PAIN [id number] 06/22/2017 06:50:00 06/22/2017 23:59:59 CLS Outpatient ASHLEY DO, ELIZABETH [facility] CARD R07.9 CHEST PAIN [id number] 05/24/2017 12:37:00 05/24/2017 23:59:59 CLS Outpatient ASHLEY DO, ELIZABETH [facility] RAD GENERALIZED ABD PAIN [id number] 05/10/2017 15:12:00 05/10/2017 23:59:59 CLS Outpatient ASHLEY DO, ELIZABETH [facility] CARD CP BACK PAIN FEVER [id number] 11/30/2016 08:20:00 11/30/2016 23:59:59 CLS Outpatient ASHLEY DO, ELIZABETH [facility] LAB E78.0 E78.1 Z00.00 R73.9 E03.9 [id number] 06/09/2016 09:53:00 06/09/2016 23:59:59 CLS Outpatient ASHLEY DO, ELIZABETH [facility] RAD SCREENING [id number] 11/24/2015 05:15:00 11/24/2015 23:59:59 CLS Outpatient ASHLEY DO, ELIZABETH [facility] LAB HYPERGLYCERIDEMIA, HYPERCHOLESTEROLEMIA,HYPEOTHYROI [id number] 09/10/2015 08:48:00 09/10/2015 09:56:00 DIS Outpatient GENE MIGUEL MD [facility] CARD SACROCCOYGEAL DISORDER NOT ELSE WHERE CLASSIFIED [id number] 09/08/2015 11:43:00 09/08/2015 23:59:59 CLS Outpatient GENE MIGUEL MD [facility] RAD SACROCOCCYGEAL [id number] 11/18/2014 05:05:00 11/18/2014 23:59:59 CLS Outpatient ASHLEY DO, ELIZABETH [facility] LAB HYPERGLCEMIA,ABNORMAL TSH ,ABD PAIN,GERD,HERPES ZOS [id number] 05/25/2014 06:38:00 05/25/2014 23:59:59 CLS Outpatient ASHLEY DO, ELIZABETH [facility] RAD ABDOMINAL PAIN [id number] 05/11/2014 05:47:00 05/11/2014 23:59:59 CLS Outpatient ASHLEY DO, ELIZABETH [facility] LAB HERPES ZOSTER;HYPERSOMNIA ;HYPERTENSION;OSTEOARTH [id number] 11/03/2013 05:42:00 11/03/2013 23:59:59 CLS Outpatient ASHLEY DO, ELIZABETH [facility] LAB HEALTH SCREENING [id number] 07/02/2013 07:36:00 07/02/2013 23:59:59 CLS Outpatient ASHLEY DO, ELIZABETH [facility] RAD KNEE PAIN [id number] 01/30/2013 06:22:00 01/30/2013 23:59:59 CLS Outpatient ASHLEY DO, ELIZABETH [facility] LAB HYPERCHOLESTEROLEMIA, ACUTE DIVERTICULITIS [id number] 04/14/2014 06:38:00 Document Registration [id number] 04/14/2014 06:38:00 Document Registration [id number] 06/04/2012 09:08:00 Document Registration [id number] 04/16/2012 10:22:00 Document Registration [id number] 03/18/2012 07:13:00 Document Registration [id number] 09/18/2011 06:17:00 Document Registration [id number] 02/03/2011 08:14:00 Document Registration [id number] 2011 09:54:00 Document Registration [id number] 12/21/2010 10:46:00 Document Registration [id number] 10/17/2010 10:41:00 Document Registration [id number] 09/09/2010 06:28:00 Document Registration [id number] 03/16/2010 09:26:00 Document Registration [id number] 03/03/2010 06:42:00 Document Registration [id number] 02/15/2010 10:33:00 Document Registration [id number] 11/23/2009 07:56:00 Document Registration [id number] 11/12/2009 07:05:00 Document Registration [id number] 10/22/2009 10:35:00 Document Registration [id number] 10/19/2009 11:01:00 Document Registration [id number] 09/07/2009 07:28:00 Document Registration [id number] 02/05/2009 08:07:00 Document Registration
[2017-07-10] MEDS ORDERED: NS IV 1000 ML 1,000 ML IV SCH ×2 (07:15→09:32)
[2017-07-10 07:35] LABS: HEMOGLOBIN 13.2 G/DL (11.5-16.0); MEAN PLATELET VOLUME 10.2 FL (7.4-10.4); RED BLOOD COUNT 3.97 10^6/uL (4.35-5.85); RED CELL DISTRIBUTION WIDTH 12.9 % (10.0-14.5)
[2017-07-10 07:43] LABS: PROTHROMBIN TIME PATIENT 13.1 SEC (12.2-14.7)
[2017-07-10] MEDS ORDERED: ATOR10TA66 PO (07:54)
[2017-07-10] MEDS ORDERED: ALPR0.5T7 PO (07:54)
[2017-07-10] MEDS ORDERED: ASPI-586 PO (07:54)
[2017-07-10] MEDS ORDERED: EB-N3 PO (07:54)
[2017-07-10] MEDS ORDERED: BUSP10TA95 PO (07:54)
[2017-07-10] MEDS ORDERED: OMEP40CA36 PO (07:54)
[2017-07-10] MEDS ORDERED: BUPR150T7 PO (07:54)
[2017-07-10] MEDS ORDERED: THYR60TA PO (07:54)
[2017-07-10] MEDS ORDERED: BUPR300T51 PO (07:54)
[2017-07-10 07:55] LABS: ALANINE AMINOTRANSFERASE 21 U/L (0-55); ALBUMIN 4.1 GM/DL (3.2-4.5); ALKALINE PHOSPHATASE 61 U/L (40-136); BILIRUBIN,TOTAL 0.3 MG/DL (0.1-1.0); BUN/CREATININE RATIO 30; CALCIUM 9.6 MG/DL (8.5-10.1); CARBON DIOXIDE 23 MMOL/L (21-32); CHLORIDE 105 MMOL/L (98-107); CHOLESTEROL 181 MG/DL (< 200); CREATININE SERUM 0.86 MG/DL (0.60-1.30); GFR ESTIMATED > 60; GLUCOSE 103 MG/DL (70-105); HDL CHOLESTEROL 69 MG/DL (40-60); POTASSIUM 4.2 MMOL/L (3.6-5.0); SODIUM 138 MMOL/L (135-145); TOTAL PROTEIN 7.8 GM/DL (6.4-8.2); TRIGLYCERIDES 96 MG/DL (<150); VLDL CHOLESTEROL 19 MG/DL (5-40)
[2017-07-10] MEDS ORDERED: LIDOCAINE 1% INJ 50 ML (XYLOCAINE) VIAL ONE (08:05)
[2017-07-10] MEDS ORDERED: MIDAZOLAM 5 MG/5 ML (VERSED) VIAL ONE (08:06)
[2017-07-10] MEDS ORDERED: fentaNYL INJECTION 100 MCG/2 ML AMP ONE (08:06)
[2017-07-10] MEDS ORDERED: diphenhydrAMINE 50 MG/ML INJ (BENADRYL) ONE (08:06)
[2017-07-10] MEDS ORDERED: MIDAZOLAM 2 MG/2 ML (VERSED) VIAL ONE (09:08)
--- NOTE | 2017-07-10 09:32 | Cardiac Procedure Note-CS/ASA ---
Pre-Procedure Note Pre-Op Procedure Note H&P Reviewed The H&P was reviewed, patient examined and no changes noted. Date H&P Reviewed: Jul 10, 2017 Time H&P Reviewed: 08:20 Conscious Sedation Pre-Proced Time Reviewed: 08:20 ASA Class: 2 Airway Mallampati Classification: (tuscarora appropriate class) I. II. III, IV Lungs Heart ASA score ASA 1: a normal healthy patient ASA 2: a patient with a mild systemic disease (mid diabetes, controlled hypertension, obesity ASA 3: a patient with a severe systemic disease that limits activity (angina , COPD, prior Myocardial infarction) ASA 4: a patient with an incapacitating disease that is a constant threat to life (CHF, renal failure) ASA 5: a moribund patient not expected to survive 24 hrs. (ruptured aneurysm) ASA 6: a declared brain patient whose organs are being harvested. For emergent operations, add the letter E after the classification Grade 3 Sedation Plan: Analgesia, Amnesia, Plan communicated to team members, Discussed options with patient/fam, Discussed risks with patient/fam Note The patient is an appropriate candidate to undergo the planned procedure, sedation, and anesthesia. The patient immediately re-assessed prior to indication. DEION BURK MD FACP FAC CCDS Jul 10, 2017 09:32
--- NOTE | 2017-07-10 09:34 | Discharge Inst-Post CATH ---
Discharge Inst-CATH Post Cardiac Cath D/C Inst Follow Up/Plan F/u with Dr Crum in 2-3 weeks CARDIAC CATH DISCHARGE INSTRUCTIONS *Hold Metformin for 48 hours post heart cath. ACTIVITY * Go Home directly and rest. * Limit activity of the leg (or wrist if it was used) for 7 days including aerobics, swimming, jogging, bicycling, etc. * Restrict stair-climbing for 7 days if possible, if not, climb up with your non -cath leg, then bring together on the same step. * Avoid lifting, pushing, pulling or excessive movement of the affected extremity for 7 days. * Customary sexual activity may be resumed after 2 days-use caution not to use a position that strains or causes pain to the affected extremity. * No driving for 24 hours. * NO SMOKING. * Avoid straining for bowel movements for 7 days. * Gentle walking on level ground is allowed. * Returning to work will depend on the type of procedure and the results. Your doctor will discuss this with you. CALL YOUR DOCTOR FOR ANY OF THE FOLLOWING: *If bleeding from the puncture site occurs- Apply gentle pressure to site with clean cloth and call your doctor or EMS. * If a knot or lump forms under the skin, increases in size, or causes pain. * If bruising appears to be worsening or moving further down your leg instead of disappearing. * Temperature above 101 F. CARE OF YOUR GROIN INCISION; * Bruising or purple discoloration of the skin near the puncture site is common. * You may shower only, no bathtub bathing for 5 days. Be careful to avoid slipping as your leg may feel stiff. * If a closure device was used on your femoral artery, please see the attached guide regarding care of the device and your leg. * REMOVE the dressing from your groin the next day after your procedure in the shower. CARE OF YOUR WRIST INCISION; * Bruising or purple discoloration of the skin near the puncture site is common. * You may shower. * DO NOT submerge wrist. * Remove dressing in 24 hours. DEION CRUM MD [facility] CCDS Jul 10, 2017 09:34
--- NOTE | 2017-07-10 09:35 | Discharge Inst-Cardiology ---
Discharge Inst-Cardiac Discharge Medications Continued Medications: Alprazolam (Alprazolam) 0.5 Mg Tablet 0.5 MG PO PRN, TAB Aspirin (Aspir 81) 81 Mg Tablet.dr 81 MG PO DAILY, TAB Atorvastatin Calcium (Atorvastatin Calcium) 10 Mg Tablet 10 MG PO HS, TAB Bupropion HCl (Bupropion Xl) 150 Mg Tab.er.24h 150 MG PO DAILY for Smoking Cessation, TAB Bupropion HCl (Bupropion Xl) 150 Mg Tab.er.24h 150 MG PO DAILY for Smoking Cessation, TAB Bupropion HCl (Bupropion Xl) 300 Mg Tab.er.24h 300 MG PO HS for Smoking Cessation, TAB Buspirone HCl (Buspirone HCl) 10 Mg Tablet 10 MG PO TID, TAB Estrogens Conjugated (Premarin (Non-Formulary)) 0.3 Mg Tab Multivitamins (Vitamins (Multi-Vit)) 1 Ea Tablet Omeprazole (Omeprazole) 40 Mg Capsule.dr 40 MG PO DAILY, CAP Thyroid,Pork (Thyroid) 60 Mg Tablet 60 MG PO DAILY, TAB [Eb-N3] () 1 TAB PO DAILY DEION BURK MD FACP FAC CCDS Jul 10, 2017 09:35
--- NOTE | 2017-07-10 09:43 | CARDIAC CATHETERIZATION ---
DATE OF SERVICE: 07/10/2017 CARDIAC CATHETERIZATION REPORT INDICATION: The patient is a 67-year-old lady, who has been experiencing shortness of breath and chest discomfort. Myocardial perfusion imaging was indicative of a small to moderate anterior ischemia. The electrocardiogram was abnormal indicating a right bundle branch block. Complete heart catheterization was recommended to evaluate for pulmonary hypertension and ventricular function and coronary artery disease, based on symptoms and noninvasive cardiac imaging. PROCEDURE: She was brought to the cardiac catheterization laboratory in a fasting state. Right groin was prepared and draped in usual sterile fashion. Lidocaine 1% was used for local anesthesia. Modified Seldinger technique was used to advance a 5-Stateless sheath into right femoral artery and a 7-Stateless sheath in the right femoral vein. We used a 7-Stateless Arnett-Florencia catheter to carry out right heart catheterization. Oxygen saturation was measured in the pulmonary artery, right ventricle and right atrium. The catheter was then removed. We used a 5-Stateless pigtail catheter for left heart catheterization, left ventricular angiography. We used 5-Stateless JL3.5 catheter for left coronary angiography and 5-Stateless JR4 catheter for right coronary angiography. At the end of the procedure, angiography of the right femoral artery was carried out through the sheath and Mynx was used to achieve hemostasis. She tolerated the procedure well. HEMODYNAMICS: Pulmonary artery pressure was 29/11 with a mean of 19 mmHg. Right atrial mean pressure was 6 mmHg. Left ventricular end-diastolic pressure at baseline was 10 mmHg. There was no significant pressure gradient on pullback across the aortic valve. Ascending aortic pressure was 154/86 with a mean of 115 mmHg. Cardiac output by thermodilution is 8.37 with an index of 3.76. LEFT VENTRICULAR ANGIOGRAPHY: Left ventricular angiography was carried out in the right anterior oblique projection. Global left ventricular systolic function normal. No regional wall motion abnormalities were seen on this view. Left ventricular ejection fraction of 60% to 65%. There does not appear to be significant mitral regurgitation. CORONARY ANGIOGRAPHY: Left main coronary artery, left circumflex artery, right coronary artery are all free of any angiographically significant disease. The left circumflex and the right coronary arteries are codominant. CONCLUSIONS: 1. No angiographically significant coronary artery disease. 2. Normal global left ventricular systolic function with ejection fraction of 60%-65%. 3. Normal left ventricular end-diastolic pressure. 4. Normal right heart pressures. DISCUSSION AND RECOMMENDATIONS: Based on results of this study, symptoms do not appear to be of cardiac origin. Continuing risk factor modification is advised. The results of a recent myocardial perfusion imaging study are false positive, based on the results of this cardiac catheterization. Job ID: [id number] DocumentID: [id number] Dictated Date: 07/10/2017 09:28:01 [employer] Supervisor Date: 07/10/2017 09:42:42 Dictated By: DIEON BURK MD, MA, FACP, FACC,
[2017-07-10] MEDS ORDERED: PATIENT MAY USE OWN MEDS, ALL PO SCH (09:45)
== END 2017-07-10 13:15 | disposition home or self-care (01) ==
LOC: CATH 06:58
PROVIDERS: ATTEND Internal Medicine Cardiovascular Disease
DX: R07.89 Other chest pain (principal); R06.02 Shortness of breath; R94.31 Abnormal electrocardiogram [ECG] [EKG]; I08.1 Rheumatic disorders of both mitral and tricuspid valves; E78.5 Hyperlipidemia, unspecified; F41.9 Anxiety disorder, unspecified; E66.9 Obesity, unspecified; Z68.34 Body mass index [BMI] 34.0-34.9, adult; Z79.899 Other long term (current) drug therapy
CPT/HCPCS: 36415; 80053; 80061; 85027; 85610; 85730; 87081; 93453

== ENCOUNTER → 2018-02-26 | Outpatient (CLI) | payer BC ==
[~2018-02-26] MED LIST changes: +ALPR0.5T7 PO; +ASPI-586 PO; +ATOR10TA66 PO; +BUPR150T7 PO; +BUPR300T51 PO; +BUSP10TA95 PO; +EB-N3 PO; +OMEP40CA36 PO; +THYR60TA PO
--- NOTE | 2018-02-26 12:49 | Diagnostic Imaging Report ---
INDICATION: Routine screening. COMPARISON: 06/09/2016 and 04/16/2012. TECHNIQUE: 2D and 3D bilateral screening mammography was performed with CAD. FINDINGS: Bilateral breast implants are again noted. The implant contours appear stable. There is scattered fibroglandular dense tissue in both breasts. No mass or malignant appearing microcalcifications are seen. The axillae are unremarkable. IMPRESSION: No mammographic features suspicious for malignancy are identified. ACR BI-RADS Category 2: Benign findings. Result letter will be mailed to the patient. Note: At least 10% of breast cancer is not imaged by mammography. Dictated by: Dictated on workstation # [id number]
== END ==
LOC: RAD 09:09
PROVIDERS: ATTEND Internal Medicine
DX: Z12.31 Encounter for screening mammogram for malignant neoplasm of breast (principal)
CPT/HCPCS: 77067

== ENCOUNTER → 2018-03-08 | Outpatient (CLI) | payer BC ==
[2018-03-08 15:21] LABS: BILIRUBIN,URINE NEGATIVE (NEGATIVE); CLARITY,URINE CLEAR; COLOR,URINE YELLOW; GLUCOSE, URINE (UA) NEGATIVE (NEGATIVE); KETONES,URINE NEGATIVE (NEGATIVE); LEUKOCYTE ESTERASE ,URINE 1+ (NEGATIVE); NITRITE,URINE NEGATIVE (NEGATIVE); PH,URINE 6 (5-9); PROTEIN,URINE NEGATIVE (NEGATIVE); UROBILINOGEN,URINE NORMAL (NORMAL)
[2018-03-08 15:24] LABS: BASOPHILS % (AUTO) 0 % (0-10); EOSINOPHILS # (AUTO) 0.2 10^3/uL (0.0-0.3); EOSINOPHILS % (AUTO) 2 % (0-10); HEMATOCRIT 40 % (35-52); LYMPHOCYTES # (AUTO) 2.5 X 10^3 (1.0-4.0); LYMPHOCYTES % (AUTO) 24 % (12-44); MEAN CORPUSCULAR HEMOGLOBIN 33 PG (25-34); MEAN CORPUSCULAR HGB CONC 33 G/DL (32-36); MEAN CORPUSCULAR VOLUME 99 FL (80-99); MEAN PLATELET VOLUME 10.1 FL (7.4-10.4); MONOCYTES # (AUTO) 0.8 X 10^3 (0.0-1.0); MONOCYTES % (AUTO) 8 % (0-12); NEUTROPHILS # (AUTO) 6.8 X 10^3 (1.8-7.8); NEUTROPHILS % (AUTO) 66 % (42-75); PLATELET COUNT 304 10^3/uL (130-400); RED BLOOD COUNT 3.98 10^6/uL (4.35-5.85); WHITE BLOOD COUNT 10.3 10^3/uL (4.3-11.0)
[2018-03-08 15:35] LABS: BACTERIA,URINE TRACE /HPF; SQUAMOUS EPITHELIAL CELL,UR 0-2 /HPF; WBC,URINE 0-2 /HPF
[2018-03-08 15:37] LABS: AMPHETAMINE SCREEN, URINE NEGATIVE (NEGATIVE); BARBITURATE SCREEN URINE NEGATIVE (NEGATIVE); BENZODIAZEPINES SCREEN URINE NEGATIVE (NEGATIVE); CANNABINOID SCREEN, URINE NEGATIVE (NEGATIVE); COCAINE SCREEN URINE NEGATIVE (NEGATIVE); METHADONE STAT NEGATIVE (NEGATIVE); METHAMPHETAMINE SCREEN URINE S NEGATIVE (NEGATIVE); OPIATE SCREEN URINE NEGATIVE (NEGATIVE); OXYCODONE STAT NEGATIVE (NEGATIVE); PROPOXYPHENE STAT NEGATIVE (NEGATIVE); TRICYCLIC ANTIDEPRESSANTS SCRE NEGATIVE (NEGATIVE)
[2018-03-08 15:41] LABS: ERYTHROCYTE SEDIMENTATION RATE 35 MM/HR (0-30)
[2018-03-08 15:44] LABS: ALANINE AMINOTRANSFERASE 17 U/L (0-55); ALBUMIN 4.4 GM/DL (3.2-4.5); ALKALINE PHOSPHATASE 66 U/L (40-136); BILIRUBIN,TOTAL 0.3 MG/DL (0.1-1.0); BUN/CREATININE RATIO 24; CALCIUM 9.9 MG/DL (8.5-10.1); CARBON DIOXIDE 23 MMOL/L (21-32); CHLORIDE 102 MMOL/L (98-107); CREATININE SERUM 0.83 MG/DL (0.60-1.30); GFR ESTIMATED > 60; GLUCOSE 104 MG/DL (70-105); POTASSIUM 4.3 MMOL/L (3.6-5.0); SODIUM 135 MMOL/L (135-145); TOTAL PROTEIN 8.1 GM/DL (6.4-8.2)
[2018-03-08 16:06] LABS: FREE T4 (FREE THYROXINE) 1.15 NG/DL (0.70-1.48)
== END ==
LOC: LAB 14:56
PROVIDERS: ATTEND Internal Medicine
DX: D64.9 Anemia, unspecified (principal); R25.1 Tremor, unspecified; E03.9 Hypothyroidism, unspecified; R63.5 Abnormal weight gain
CPT/HCPCS: 36415; 80053; 80306; 81000; 83036; 84439; 84443; 85025; 85652; 86141

== ENCOUNTER → 2018-08-09 | Outpatient (CLI) | payer BC ==
[2018-08-09 08:18] LABS: BASOPHILS % (AUTO) 0 % (0-10); EOSINOPHILS # (AUTO) 0.1 10^3/uL (0.0-0.3); EOSINOPHILS % (AUTO) 1 % (0-10); HEMATOCRIT 37 % (35-52); HEMOGLOBIN 12.2 G/DL (11.5-16.0); LYMPHOCYTES # (AUTO) 1.4 X 10^3 (1.0-4.0); LYMPHOCYTES % (AUTO) 22 % (12-44); MEAN CORPUSCULAR HEMOGLOBIN 32 PG (25-34); MEAN CORPUSCULAR HGB CONC 33 G/DL (32-36); MEAN CORPUSCULAR VOLUME 97 FL (80-99); MEAN PLATELET VOLUME 10.1 FL (7.4-10.4); MONOCYTES # (AUTO) 0.5 X 10^3 (0.0-1.0); MONOCYTES % (AUTO) 8 % (0-12); NEUTROPHILS # (AUTO) 4.3 X 10^3 (1.8-7.8); NEUTROPHILS % (AUTO) 68 % (42-75); PLATELET COUNT 301 10^3/uL (130-400); RED CELL DISTRIBUTION WIDTH 14.1 % (10.0-14.5); WHITE BLOOD COUNT 6.3 10^3/uL (4.3-11.0)
[2018-08-09 08:42] LABS: ALANINE AMINOTRANSFERASE 18 U/L (0-55); ALBUMIN 4.1 GM/DL (3.2-4.5); ALKALINE PHOSPHATASE 64 U/L (40-136); BILIRUBIN,TOTAL 0.3 MG/DL (0.1-1.0); BUN/CREATININE RATIO 19; CALCIUM 9.5 MG/DL (8.5-10.1); CARBON DIOXIDE 20 MMOL/L (21-32); CHLORIDE 108 MMOL/L (98-107); CHOLESTEROL 187 MG/DL (< 200); CREATININE SERUM 0.81 MG/DL (0.60-1.30); GFR ESTIMATED > 60; GLUCOSE 117 MG/DL (70-105); HDL CHOLESTEROL 73 MG/DL (40-60); POTASSIUM 4.1 MMOL/L (3.6-5.0); SODIUM 140 MMOL/L (135-145); TOTAL PROTEIN 7.4 GM/DL (6.4-8.2); TRIGLYCERIDES 103 MG/DL (<150); VLDL CHOLESTEROL 21 MG/DL (5-40)
[2018-08-09 09:03] LABS: FREE T4 (FREE THYROXINE) 1.11 NG/DL (0.70-1.48)
== END ==
LOC: LAB 08:03
PROVIDERS: ATTEND Internal Medicine
DX: Z00.00 Encounter for general adult medical examination without abnormal findings (principal); E78.00 Pure hypercholesterolemia, unspecified; E78.1 Pure hyperglyceridemia; E03.9 Hypothyroidism, unspecified
CPT/HCPCS: 36415; 80053; 80061; 84439; 84443; 85025

== ENCOUNTER → 2019-03-26 | Outpatient (CLI) | payer BC ==
--- NOTE | 2019-03-26 12:07 | Diagnostic Imaging Report ---
INDICATION: Dizziness. TECHNIQUE: Routine non contrast-enhanced axial images were obtained from the skull base to the vertex. Auto Exposure Controls were utilized during the CT exam to meet ALARA standards for radiation dose reduction COMPARISON: None. FINDINGS: The ventricles and cortical sulci are diffusely prominent, compatible with age-related volume loss. There are confluent areas of abnormal, low attenuation in the periventricular white matter. This is consistent with small vessel ischemic changes; age-indeterminate. There is no prior study available for comparison. There is no midline shift or mass-effect. No acute intra-axial hemorrhage is seen. There are no abnormal areas of increased or decreased density to suggest acute hemorrhage or edema. No extra-axial masses or collections are present. The bony calvarium is intact. The visualized paranasal sinuses are unremarkable. The mastoid air cells are clear. IMPRESSION: 1. No acute intracranial abnormality. No CT evidence of mass, acute infarct or intracranial hemorrhage. 2. Small vessel ischemic changes in the periventricular and subcortical white matter; likely chronic. Dictated by: Dictated on workstation # [id number]
== END ==
LOC: RAD 11:40
PROVIDERS: ATTEND Internal Medicine
DX: I63.9 Cerebral infarction, unspecified (principal); I67.82 Cerebral ischemia; R90.82 White matter disease, unspecified
CPT/HCPCS: 70450

== ENCOUNTER → 2019-04-02 | Outpatient (CLI) | payer BC ==
[2019-04-02 06:53] LABS: BASOPHILS % (AUTO) 1 % (0-10); EOSINOPHILS # (AUTO) 0.2 10^3/uL (0.0-0.3); EOSINOPHILS % (AUTO) 3 % (0-10); HEMATOCRIT 38 % (35-52); HEMOGLOBIN 12.4 G/DL (11.5-16.0); LYMPHOCYTES # (AUTO) 1.9 X 10^3 (1.0-4.0); LYMPHOCYTES % (AUTO) 35 % (12-44); MEAN CORPUSCULAR HEMOGLOBIN 33 PG (25-34); MEAN CORPUSCULAR HGB CONC 33 G/DL (32-36); MEAN CORPUSCULAR VOLUME 100 FL (80-99); MEAN PLATELET VOLUME 10.1 FL (7.4-10.4); MONOCYTES # (AUTO) 0.6 X 10^3 (0.0-1.0); MONOCYTES % (AUTO) 10 % (0-12); NEUTROPHILS # (AUTO) 2.7 X 10^3 (1.8-7.8); NEUTROPHILS % (AUTO) 51 % (42-75); PLATELET COUNT 265 10^3/uL (130-400); RED CELL DISTRIBUTION WIDTH 13.6 % (10.0-14.5); WHITE BLOOD COUNT 5.3 10^3/uL (4.3-11.0)
[2019-04-02 07:12] LABS: ALANINE AMINOTRANSFERASE 13 U/L (0-55); ALKALINE PHOSPHATASE 67 U/L (40-136); BILIRUBIN,TOTAL 0.3 MG/DL (0.1-1.0); BUN/CREATININE RATIO 17; CALCIUM 9.2 MG/DL (8.5-10.1); CARBON DIOXIDE 24 MMOL/L (21-32); CHLORIDE 107 MMOL/L (98-107); CREATININE SERUM 0.82 MG/DL (0.60-1.30); GFR ESTIMATED > 60; GLUCOSE 107 MG/DL (70-105); POTASSIUM 4.1 MMOL/L (3.6-5.0); SODIUM 141 MMOL/L (135-145); TOTAL PROTEIN 7.2 GM/DL (6.4-8.2)
[2019-04-02 07:34] LABS: ERYTHROCYTE SEDIMENTATION RATE 31 MM/HR (0-30); FREE T4 (FREE THYROXINE) 0.93 NG/DL (0.70-1.48)
== END ==
LOC: LAB 06:33
PROVIDERS: ATTEND Internal Medicine
DX: Z00.00 Encounter for general adult medical examination without abnormal findings (principal); E03.9 Hypothyroidism, unspecified; E78.2 Mixed hyperlipidemia; I63.9 Cerebral infarction, unspecified; K21.9 Gastro-esophageal reflux disease without esophagitis; R00.2 Palpitations
CPT/HCPCS: 36415; 80053; 82607; 82728; 82746; 84439; 84443; 85025; 85652; 86141

== ENCOUNTER → 2019-06-02 | Outpatient (CLI) | payer BC ==
[~2019-06-02] MED LIST changes: +OMEP40CA27 PO; -OMEP40CA36 PO
--- NOTE | 2019-06-02 12:11 | Diagnostic Imaging Report ---
INDICATION: Routine screening. COMPARISON: 02/26/2018 and 06/09/2016. TECHNIQUE: 2D and 3D bilateral screening mammography was performed with CAD. FINDINGS: The patient's previously noted bilateral breast implants have been removed. The patient's breast tissue is heterogeneously dense, limiting the sensitivity of mammography. No mass or malignant appearing microcalcifications are seen. There are benign calcifications. A probable oil cyst in the central right breast is noted. The axillae are unremarkable. IMPRESSION: No mammographic features suspicious for malignancy are identified. ACR BI-RADS Category 2: Benign findings. Result letter will be mailed to the patient. Note: At least 10% of breast cancer is not imaged by mammography. Dictated by: Dictated on workstation # [id number]
== END ==
LOC: RAD 08:00
PROVIDERS: ATTEND Internal Medicine
DX: Z12.31 Encounter for screening mammogram for malignant neoplasm of breast (principal)
CPT/HCPCS: 77067

== ENCOUNTER 2020-02-18 05:49 | Outpatient (CLI) | payer BC ==
[~2020-02-18] VITALS: Ht 170.2 cm; Wt 90.9 kg
[~2020-02-18 05:49] MED LIST changes: -BUPR300T51 PO; +BUPR300T98 PO
[2020-02-18] MEDS ORDERED: MULT-567 PO (11:33)
[2020-02-18] MEDS ORDERED: VORT20TA PO (11:33)
[2020-02-18] MEDS ORDERED: ESTR0.3T PO (11:33)
[2020-02-18] MEDS ORDERED: OMEG-118 PO (11:33)
[2020-02-18] MEDS ORDERED: CALC-823 PO (11:33)
[2020-02-18] MEDS ORDERED: GBPN600T PO (11:33)
[2020-02-18] MEDS ORDERED: TRZ50T PO (11:33)
== END 2020-02-18 11:35 | disposition home or self-care (01) ==
LOC: PREOP 05:49
PROVIDERS: ATTEND Specialist
DX: Z01.818 Encounter for other preprocedural examination (principal)

== ENCOUNTER 2020-02-20 07:25 | Day surgery (SDC) | payer BC ==
[~2020-02-20] VITALS: Ht 170 cm; Wt 90.9 kg
[~2020-02-20 07:25] MED LIST changes: +CALC-823 PO; +ESTR0.3T PO; +GBPN600T PO; +MULT-567 PO; +OMEG-118 PO; +TRZ50T PO; +VORT20TA PO
[2020-02-20] MEDS ORDERED: MOXIFLOXACIN OPHTH SOLN 5 MG/ML 0.3 ML SYRINGE OP ONE (07:45)
[2020-02-20] MEDS ORDERED: POVIDONE (BETADINE) OPHTH SOLN 5% 30 ML OP ONE (07:45)
[2020-02-20] MEDS ORDERED: TIMOLOL MALEATE 0.5% 5 ML (TIMOPTIC) BTL OU PRN (07:45)
[2020-02-20] MEDS: TETRACAINE 0.5% OPHTH SOLN 4 ML BTL (SINGLE DOSE ONLY) OU PRN ×4 (07:45→08:01)
[2020-02-20] MEDS ORDERED: LIDOCAINE PF 1% 2 ML VIAL IR PRN (07:45)
[2020-02-20] MEDS: PHENYLEPHRINE 10% OPHTH (NEO-SYN) 5 ML BTL OU SCH ×3 (07:51→08:01)
[2020-02-20] MEDS: TROPICAMIDE 1% OPH SOLN (MYDRIACYL) 15 ML BTL OP SCH ×3 (07:51→08:01)
[2020-02-20 07:53] VITALS: BP 151/83
[2020-02-20] MEDS ORDERED: MIDAZOLAM 2 MG/2 ML (VERSED) VIAL ONE (08:09)
--- NOTE | 2020-02-20 08:22 | Ophthalmologist Pre-Op Note ---
Pre-Operative Progress Note H&P Reviewed The H&P was reviewed, patient examined and no changes noted. Date H&P Reviewed: Feb 20, 2020 Time H&P Reviewed: 08:22 Pre-Op Dx Cataract, Left Eye THU PLUMMER MD Feb 20, 2020 08:22
--- NOTE | 2020-02-20 08:47 | Ophthalmology Operative Report ---
Cataract removal/placement IOL PREOPERATIVE DIAGNOSIS: Cataract Left Eye POSTOPERATIVE DIAGNOSIS: Cataract Left Eye PROCEDURE: Cataract removal and placement of posterior chamber implant, left eye SURGEON: Dima Plummer ANESTHESIA: Topical with sedation COMPLICATIONS: None ESTIMATED BLOOD LOSS: Minimal DESCRIPTION OF PROCEDURE: After proper informed consent was obtained, the patient, a 70 female, was taken to the Operating Room and the left eye was anesthetized with tetracaine. The left eye was then prepped and draped in the usual manner. A wire lid speculum was placed. A paracentesis was made at the left hand position. Preservative free lidocaine was injected into the anterior chamber followed by viscoelastic. A clear corneal incision was made in the temporal position. A capsulorrhexis was preformed and the central nuclear and cortical material were removed. The posterior capsule was polished and an Enoc 18.5 AU00T0 was placed into the capsular bag. The residual viscoelastic was aspirated and balanced saline solution was injected into the anterior chamber. Moxifloxacin was injected into the anterior chamber. The wound was checked and found to be water tight. The patient tolerated the procedure well without complications. DIMA PLUMMER MD Feb 20, 2020 08:47
[2020-02-20 08:55] VITALS: BP 166/73
[2020-02-20] MEDS ORDERED: acetaZOLAMIDE ER 500 MG CAP (DIAMOX SEQUELS) PO ONE (09:00)
--- NOTE | 2020-02-20 13:54 | Anesthesia-General Post-Op ---
MAC Patient Condition Mental Status/LOC: Same as Preop Cardiovascular: Satisfactory Nausea/Vomiting: Absent Respiratory: Satisfactory Pain: Controlled Complications: Absent Post Op Complications Complications None Follow Up Care/Instructions Patient Instructions None needed. Anesthesiology Discharge Order Discharge Order Patient is doing well, no complaints, stable vital signs, no apparent adverse anesthesia problems. No complications reported per nursing. BECKY APODACA CRNA Feb 20, 2020 13:54
== END 2020-02-20 08:55 ==
LOC: SDC 07:25
PROVIDERS: ATTEND Specialist
DX: H25.12 Age-related nuclear cataract, left eye (principal); F32.9 Major depressive disorder, single episode, unspecified; F41.9 Anxiety disorder, unspecified; K21.9 Gastro-esophageal reflux disease without esophagitis; M06.9 Rheumatoid arthritis, unspecified; Z79.899 Other long term (current) drug therapy; Z90.710 Acquired absence of both cervix and uterus; Z87.891 Personal history of nicotine dependence; Z80.9 Family history of malignant neoplasm, unspecified

== ENCOUNTER → 2020-02-24 | Outpatient (CLI) | payer BC | LOC: LABNPT 06:16 | PROVIDERS: ATTEND Specialist | DX: Z01.812 Encounter for preprocedural laboratory examination (principal); Z20.828 Contact with and (suspected) exposure to other viral communicable diseases | CPT/HCPCS: 87635 ==

== ENCOUNTER 2020-02-27 06:09 | Day surgery (SDC) | payer BC ==
[~2020-02-27] VITALS: Ht 170 cm; Wt 90.9 kg
[2020-02-27] MEDS ORDERED: MOXIFLOXACIN OPHTH SOLN 5 MG/ML 0.3 ML SYRINGE OP ONE (06:15)
[2020-02-27] MEDS ORDERED: TIMOLOL MALEATE 0.5% 5 ML (TIMOPTIC) BTL OU PRN (06:15)
[2020-02-27] MEDS ORDERED: LIDOCAINE PF 1% 2 ML VIAL IR PRN (06:15)
[2020-02-27] MEDS ORDERED: POVIDONE (BETADINE) OPHTH SOLN 5% 30 ML OP ONE (06:15)
[2020-02-27 06:29] VITALS: BP 171/88
[2020-02-27] MEDS: TETRACAINE 0.5% OPHTH SOLN 4 ML BTL (SINGLE DOSE ONLY) OU PRN ×4 (06:35→06:54)
[2020-02-27] MEDS ORDERED: MIDAZOLAM 2 MG/2 ML (VERSED) VIAL ONE (06:42)
[2020-02-27] MEDS: PHENYLEPHRINE 10% OPHTH (NEO-SYN) 5 ML BTL OU SCH ×3 (06:45→06:54)
[2020-02-27] MEDS: TROPICAMIDE 1% OPH SOLN (MYDRIACYL) 15 ML BTL OP SCH ×3 (06:45→06:54)
--- NOTE | 2020-02-27 06:52 | Ophthalmologist Pre-Op Note ---
Pre-Operative Progress Note H&P Reviewed The H&P was reviewed, patient examined and no changes noted. Date H&P Reviewed: Feb 27, 2020 Time H&P Reviewed: 06:52 Pre-Op Dx Cataract, Right Eye THU PLUMMER MD Feb 27, 2020 06:52
[2020-02-27] MEDS ORDERED: acetaZOLAMIDE ER 500 MG CAP (DIAMOX SEQUELS) PO ONE (07:30)
--- NOTE | 2020-02-27 07:47 | Ophthalmology Operative Report ---
Cataract removal/placement IOL PREOPERATIVE DIAGNOSIS: Cataract Right Eye POSTOPERATIVE DIAGNOSIS: Cataract Right Eye PROCEDURE: Cataract removal and placement of posterior chamber implant, right eye SURGEON: Dima Plummer ANESTHESIA: Topical with sedation COMPLICATIONS: None ESTIMATED BLOOD LOSS: Minimal DESCRIPTION OF PROCEDURE: After proper informed consent was obtained, the patient, a 70 female, was taken to the Operating Room and the right eye was anesthetized with tetracaine. The right eye was then prepped and draped in the usual manner. A wire lid speculum was placed. A paracentesis was made at the left hand position. Preservative free lidocaine was injected into the anterior chamber followed by viscoelastic. A clear corneal incision was made in the temporal position. A capsulorrhexis was preformed and the central nuclear and cortical material were removed. The posterior capsule was polished and Enoc 18.0 AU00T0 IOL was placed into the capsular bag. The residual viscoelastic was aspirated and balanced saline solution was injected into the anterior chamber. Moxifloxacin was injected into the anterior chamber. The wound was checked and found to be water tight. The patient tolerated the procedure well without complications. DIMA PLUMMER MD Feb 27, 2020 07:47
[2020-02-27 07:54] VITALS: BP 162/90
--- NOTE | 2020-02-27 09:08 | Anesthesia-General Post-Op ---
MAC Patient Condition Mental Status/LOC: Same as Preop Cardiovascular: Satisfactory Nausea/Vomiting: Absent Respiratory: Satisfactory Pain: Controlled Complications: Absent Post Op Complications Complications None Follow Up Care/Instructions Patient Instructions None needed. Anesthesiology Discharge Order Discharge Order Patient is doing well, no complaints, stable vital signs, no apparent adverse anesthesia problems. No complications reported per nursing. CASI MOLINA CRNA Feb 27, 2020 09:08
== END 2020-02-27 07:58 ==
LOC: SDC 06:09
PROVIDERS: ATTEND Specialist
DX: H25.11 Age-related nuclear cataract, right eye (principal); F32.9 Major depressive disorder, single episode, unspecified; F41.9 Anxiety disorder, unspecified; K21.9 Gastro-esophageal reflux disease without esophagitis; M06.9 Rheumatoid arthritis, unspecified; Z79.899 Other long term (current) drug therapy; Z90.710 Acquired absence of both cervix and uterus; Z87.891 Personal history of nicotine dependence; Z80.3 Family history of malignant neoplasm of breast; Z80.9 Family history of malignant neoplasm, unspecified; Z83.511 Family history of glaucoma

== ENCOUNTER → 2020-08-13 | Outpatient (CLI) | payer BC ==
[~2020-08-13] MED LIST changes: +BUPR150T24 PO; -BUPR150T7 PO; +CATHETER FLUSH 10 ML SYR IV PRN; +HOLD METFORMIN - RECEIVED CONTRAST 20 ML VIAL IV SCH; +IOHEXOL 350 MG/ML 100 ML (OMNIPAQUE 350) VIAL IV ONE; +NS 100 ML (IVPB) BAG IV ONE
--- NOTE | 2020-08-13 08:55 | Diagnostic Imaging Report ---
PROCEDURE: CT abdomen and pelvis with contrast. TECHNIQUE: Multiple contiguous axial images were obtained through the abdomen and pelvis after administration of intravenous contrast. Auto Exposure Controls were utilized during the CT exam to meet ALARA standards for radiation dose reduction. All CT scans use one or more of the following dose optimizing techniques: automated exposure control, MA and/or KvP adjustment based on patient size and exam type or iterative reconstruction. DATE: August 13, 2020. COMPARISON: CT abdomen and pelvis May 24, 2017. INDICATION: 70-year-old female, left lower quadrant abdominal pain. FINDINGS: The visualized portions of the lung bases are clear. The heart is not enlarged. There is no pericardial effusion. The liver is normal in size and contour. There is a low-attenuation lesion in the left lobe of the liver measuring 8 mm in size on axial image 7 with internal attenuation compatible with a benign cyst. There is no additional identified liver lesion. The main, left, and right portal veins are patent. The gallbladder is unremarkable. There is no biliary ductal dilation. The main pancreatic duct is not abnormally dilated. Unremarkable appearance of the pancreatic parenchyma. The spleen is normal in size. The adrenal glands are unremarkable. Unremarkable appearance of the renal parenchyma. The urinary collecting systems are not distended. There is no identified renal or ureteral stone. Urinary bladder is unremarkable. Uterus is not seen and may be surgically absent. The intestinal tract is not distended. The appendix is unremarkable. There is a small fat-containing umbilical hernia. There is questionable mild wall thickening of the mid to distal stomach. There is no free intraperitoneal air. There is no drainable fluid collection. There is no free pelvic fluid. There are very mild atherosclerotic calcifications noted. There is no identified abnormally enlarged lymph node in the abdomen or pelvis meeting CT size criteria for adenopathy. There are multilevel degenerative changes of the spine. There is no identified acute bony abnormality. There is a lucent lesion in the L1 vertebral body measuring 8 mm in size which is stable since at least May 24, 2017 consistent with benign etiology. IMPRESSION: CT ABDOMEN AND PELVIS. 1. Questionable mild wall thickening of the mid to distal stomach which potentially could reflect gastritis or malignancy. Consider further evaluation with upper endoscopy. 2. No otherwise identified potential acute abnormality in the abdomen or pelvis. 3. Benign cyst in the left lobe of the liver. Dictated by: Dictated on workstation # [id number]
== END ==
LOC: RAD 08:15
PROVIDERS: ATTEND Internal Medicine
DX: K76.89 Other specified diseases of liver (principal)
CPT/HCPCS: 74177

== ENCOUNTER 2020-10-01 05:34 | Outpatient (RCR) | payer BC ==
[~2020-10-01] VITALS: Ht 170.2 cm; Wt 109.3 kg
[~2020-10-01 05:34] MED LIST changes: -CATHETER FLUSH 10 ML SYR IV PRN; +GABA-490 PO; -HOLD METFORMIN - RECEIVED CONTRAST 20 ML VIAL IV SCH; -IOHEXOL 350 MG/ML 100 ML (OMNIPAQUE 350) VIAL IV ONE; +LACT10SO3 PO; -NS 100 ML (IVPB) BAG IV ONE; +THYR60TA2 PO
== END 2020-10-04 09:29 | disposition home or self-care (01) ==
LOC: PREOP 05:34
PROVIDERS: ATTEND Surgery
DX: Z01.812 Encounter for preprocedural laboratory examination (principal); Z20.822 Contact with and (suspected) exposure to COVID-19; Z85.038 Personal history of other malignant neoplasm of large intestine
CPT/HCPCS: 87635

== ENCOUNTER → 2020-10-05 | Day surgery (SDC) | payer BC ==
[~2020-10-05] VITALS: Ht 170 cm; Wt 109.3 kg
[~2020-10-05] MED LIST changes: +HURRICAINE EXT TUBE (BENZOCAINE) XX PRN; +LACTATED RINGERS 1,000 ML IV ONE; +LACTATED RINGERS 1,000 ML IV STA; +MIDAZOLAM 2 MG/2 ML (VERSED) VIAL ONE; +PROPOFOL INJECTION 50 ML IV ONE
[2020-10-05 12:06] VITALS: BP 169/83
--- NOTE | 2020-10-05 12:06 | Progress Note-Pre Operative ---
Pre-Operative Progress Note H&P Reviewed The H&P was reviewed, patient examined and no changes noted. Date Seen by Provider: Oct 05, 2020 Time Seen by Provider: 12:06 Date H&P Reviewed: Oct 05, 2020 Time H&P Reviewed: 12:06 Pre-Operative Diagnosis: abnormal ct thickening of stomach, family hx colon ca GRACE ROSARIO DO Oct 05, 2020 12:06
[2020-10-05 13:00] VITALS: BP 116/65
--- NOTE | 2020-10-05 13:03 | Discharge Inst-Simple/Standard ---
Discharge Inst-Standard Patient Instructions/Follow Up Plan of Care/Instructions/FU: 2 weeks Angela Activity as Tolerated: Yes Discharge Diet: Regular Diet (high fiber) GRACE ROSARIO DO Oct 05, 2020 13:03
[2020-10-05 13:05] VITALS: BP_SYST 143; BP_SYST 152; BP_DIAS 63
[2020-10-05 13:31] VITALS: BP 154/72
[2020-10-05 13:34] VITALS: BP 154/72
--- NOTE | 2020-10-05 14:24 | Anesthesia-General Post-Op ---
MAC Patient Condition Mental Status/LOC: Same as Preop Cardiovascular: Satisfactory Nausea/Vomiting: Absent Respiratory: Satisfactory Pain: Controlled Complications: Absent Post Op Complications Complications None Follow Up Care/Instructions Patient Instructions None needed. Anesthesiology Discharge Order Discharge Order Patient is doing well, no complaints, stable vital signs, no apparent adverse anesthesia problems. No complications reported per nursing. NARENDRA MORRISON CRNA Oct 05, 2020 14:24
--- NOTE | 2020-10-05 16:48 | OPERATIVE REPORT ---
DATE OF SERVICE: 10/05/2020 PREOPERATIVE DIAGNOSES: Abnormal CT scan, thickening of stomach, family history of colon cancer. POSTOPERATIVE DIAGNOSES: Antral gastritis and ascending colon polyp, diverticulosis. PROCEDURE: EGD with biopsies, colonoscopy with hot biopsy polypectomy. SURGEON: Grace Miller DO ANESTHESIA: Per COIN MACHINE MECHANIC. ESTIMATED BLOOD LOSS: None. COMPLICATIONS: None. SPECIMENS: Antrum, GE junction and colon polyp. INDICATIONS: The patient is a 70-year-old female with abnormal CT scan findings of thickening of the stomach and she has family history of colon cancer. She understands risks and benefits of procedure and wished to proceed. Consent was signed in the chart. DESCRIPTION OF PROCEDURE: The patient was taken to the endoscopy suite, placed in left lateral recumbent position. Timeout was performed. Scope was inserted in mouth, down the esophagus, stomach and into the duodenum without difficulty. There were no polyps, masses or ulcerations within the duodenum. Scope was slowly retracted back in the stomach where it was further insufflated. The antral portion erythematous changes suggestive of antral gastritis present. Biopsy of the antrum was obtained. Scope was retroflexed noting no other pathology. Scope was returned to its normal position, slowly withdrawn until completely removed into the distal esophagus. Biopsy of the GE junction was obtained. Normal appearance. No polyps, masses or ulcerations. Scope was slowly retracted back until completely removed. Digital rectal exam was performed. No palpable polyps, masses or ulcerations. Scope was inserted in the rectum, advanced all the way to cecum with minimal difficulty. Prep was adequate. Scope was then slowly retracted back. No polyps, masses or ulcerations in the cecum. In the ascending colon, there was a small polyp, which hot biopsy polypectomy was performed. Scope was then continuously retracted back. No polyps, masses or ulcerations were within the remainder of the ascending, transverse, descending and sigmoid colon. In the sigmoid colon, diverticulosis present. Scope was slowly retracted back into the rectum where it was also retroflexed noting some internal hemorrhoids. No other pathology. Scope was returned to its normal position, slowly withdrawn until completely removed. The patient tolerated procedure well without any complications. She was taken to recovery room in stable condition. RECOMMENDATIONS: The patient's repeat colonoscopy in 5 years due to the polyps and family history of colon cancer. Continue on current medications for her stomach. At this time, we will consider switching omeprazole to Protonix depending upon pathology and how her symptoms are. With diverticulosis, would also recommended high fiber diet. Job ID: [id number] DocumentID: [id number] Dictated Date: 10/05/2020 13:06:59 Electronic Warfare Operator Date: 10/05/2020 16:48:01 Dictated By: GRACE MILLER DO
--- NOTE | 2020-10-05 17:02 | Progress Note-Post Operative ---
Post-Operative Progess Note Surgeon (s)/Filler Room Attendant (s) Surgeon GRACE ROSARIO DO Filler Room Attendant: na Pre-Operative Diagnosis abnormal ct thickening of stomach, family hx colon ca Post-Operative Diagnosis antral gastritis, ascending colon polyp, diverticulosis Procedure & Operative Findings Date of Procedure 10/05/20 Procedure Performed/Findings egd c biopsies, colonoscopy with hot bx polypectomy Anesthesia Type per reed repairer Estimated Blood Loss Estimated blood loss (mL): none Specimens/Packing Specimens Removed antrum, ge, colon polyp GRACE ROSARIO DO Oct 05, 2020 17:02
== END ==
LOC: ENDO 11:38
PROVIDERS: ATTEND Surgery
DX: K63.5 Polyp of colon (principal); K57.30 Diverticulosis of large intestine without perforation or abscess without bleeding; I10 Essential (primary) hypertension; K29.60 Other gastritis without bleeding; E66.9 Obesity, unspecified; K59.00 Constipation, unspecified; Z80.0 Family history of malignant neoplasm of digestive organs; Z79.899 Other long term (current) drug therapy; Z79.891 Long term (current) use of opiate analgesic; Z68.38 Body mass index [BMI] 38.0-38.9, adult; Z90.49 Acquired absence of other specified parts of digestive tract
CPT/HCPCS: 88305

== ENCOUNTER → 2020-12-17 | Outpatient (CLI) | payer BC ==
[~2020-12-17] MED LIST changes: -HURRICAINE EXT TUBE (BENZOCAINE) XX PRN; -LACTATED RINGERS 1,000 ML IV ONE; -LACTATED RINGERS 1,000 ML IV STA; -MIDAZOLAM 2 MG/2 ML (VERSED) VIAL ONE; -OMEP40CA27 PO; +OMEP40CA6 PO; -PROPOFOL INJECTION 50 ML IV ONE
--- NOTE | 2020-12-17 10:33 | Diagnostic Imaging Report ---
MRI LT LOWER EXT JOINT W/O TECHNIQUE: Multiplanar, multisequence MR imaging of the left knee was performed without contrast. COMPARISON: None available. INDICATION: Left knee pain. FINDINGS: MENISCI Medial meniscus: There is some mild free edge fraying in the posterior horn of the medial meniscus near its root insertion. Lateral meniscus: Normal. LIGAMENTS ACL: Intact. PCL: Intact. MCL: Intact. LCL: The lateral collateral ligamentous complex is intact. EXTENSOR MECHANISM The extensor mechanism is intact. CARTILAGE Medial compartment: Medial compartment articular cartilage is well preserved without focal high-grade chondromalacia. Lateral compartment: The lateral compartment articular cartilage is preserved without high-grade chondromalacia. Patellofemoral compartment: Diffuse full-thickness articular cartilage loss throughout the patella and trochlea. BONE No fracture, stress fracture or osteonecrosis. SOFT TISSUE No knee effusion or Cheng's cyst. IMPRESSION: 1. Severe osteoarthritis in the patellofemoral compartment as there is diffuse full-thickness articular cartilage loss. 2. Mild degenerative free edge fraying/tearing in the posterior horn of the medial meniscus. Dictated by: Dictated on workstation # [id number]
== END ==
LOC: RAD 08:00
PROVIDERS: ATTEND Family Medicine
DX: M17.12 Unilateral primary osteoarthritis, left knee (principal)
CPT/HCPCS: 73721

== ENCOUNTER → 2021-10-04 | Outpatient (CLI) | payer BC ==
[~2021-10-04] MED LIST changes: +RT-ALBUTEROL SULF 2.5 MG/3 ML PRE-MIX VIAL INH ONE
--- NOTE | 2021-10-04 13:41 | Diagnostic Imaging Report ---
INDICATION: Congestion. TIME OF EXAM: 1:27 PM. COMPARISON: No prior studies are available for comparison. FINDING: The heart size is normal. The pulmonary vascularity is unremarkable. The lungs are clear. No infiltrate, effusion, or pneumothorax is detected. IMPRESSION: No acute cardiopulmonary process is detected. Dictated by: Dictated on workstation # [id number]
--- NOTE | 2021-10-04 16:41 | Diagnostic Imaging Report ---
INDICATION: 71-year-old asymptomatic postmenopausal female COMPARISON: 10/08/2007 FINDINGS: AP Spine L1-L4: [BMD (g/cm2): 0.895] [T-Score: -2.5] [Z-Score: -2.0] [BMD Previous: 1.094] [BMD % Change: -18.2] LT Hip Neck: [BMD (g/cm2): 0.878] [T-Score: -1.2] [Z-Score: -0.1] LT Hip Total: [BMD (g/cm2):0.983] [T-Score:-0.2] [Z-Score: 0.6] [BMD Previous: 1.031] [BMD % Change: -4.7] RT Hip Neck: [BMD (g/cm2):0.855] [T-Score:-1.3] [Z-Score:-0.3] RT Hip Total: [BMD (g/cm2):0.945] [T-score:-0.5] [Z-Score:0.3] [BMD Previous:0.932] [BMD % Change:1.4] World Health Organization criteria for BMD interpretation classify patients as Normal (T-score at or above -1.0), Osteopenic (T-score between -1.0 and -2.5) or Osteoporotic (T-score at or below -2.5). LIMITATIONS AND MODIFICATION: None. FRACTURE RISK (FRAX SCORE): Not applicable as patient meets criteria for osteoporosis. IMPRESSION: 1. Osteoporosis. 2. Bone marrow density has decreased since prior examination. 3. See below National Osteoporosis Foundation guidelines on when to potentially initiate pharmacologic therapy. Based on the National Osteoporosis Foundation Guidelines, pharmacologic treatment should be initiated in any of the following, unless clinical conditions suggest otherwise: * Any patient with prior fragility fracture of the hip or vertebrae. A spine fracture indicates 5X risk for subsequent spine fracture and 2X risk for subsequent hip fracture. * Osteoporosis (T-score <-2.5). * Postmenopausal women and men age 50 and older with low bone mass/osteopenia (T-score between -1.0 and -2.5) by DXA and 10-year major osteoporotic fracture greater than 20% or a 10-year probability of hip fracture greater than 3%. These fracture risks are supplied above in the FRAX score, if applicable. * Clinician judgement and/or patient preferences may indicate treatment for people with 10-year fracture probabilities above or below these levels. Dictated by: Dictated on workstation # [id number]
--- NOTE | 2021-10-04 18:51 | Diagnostic Imaging Report ---
INDICATION: Routine screening. COMPARISON is made with prior mammograms 06/02/2019 and 02/26/2018. 2-D and 3-D bilateral screening mammography was performed with CAD. Both breasts remain remain heterogeneously dense, limiting the sensitivity of mammography. There are some increasing calcifications in the central right breast. There also is some motion artifact on the right MLO view. Left breast is unremarkable. Axillae are unremarkable. IMPRESSION: BI-RADS Category 0 Increasing right breast calcifications, perhaps on the basis of fat necrosis. Even so, additional views are recommended. Repeat right MLO view would also be recommended due to motion artifact. ACR BI-RADS Category 0: Incomplete. (Needs additional imaging evaluation). Result letter will be mailed to the patient. Note: At least 10% of breast cancer is not imaged by mammography. Dictated by: Dictated on workstation # [id number]
== END ==
LOC: RAD 13:15
PROVIDERS: ATTEND Family Medicine
DX: Z12.31 Encounter for screening mammogram for malignant neoplasm of breast (principal); M81.0 Age-related osteoporosis without current pathological fracture; R92.1 Mammographic calcification found on diagnostic imaging of breast; R06.09 Other forms of dyspnea; R09.89 Other specified symptoms and signs involving the circulatory and respiratory systems; Z78.0 Asymptomatic menopausal state; Z87.891 Personal history of nicotine dependence
CPT/HCPCS: 71046; 77063; 77067; 77080; 94060; 94726; 94729

== ENCOUNTER → 2021-10-05 | Outpatient (CLI) | payer BC ==
[~2021-10-05] MED LIST changes: -RT-ALBUTEROL SULF 2.5 MG/3 ML PRE-MIX VIAL INH ONE
== END ==
LOC: CARD 08:30
PROVIDERS: ATTEND Internal Medicine Cardiovascular Disease
DX: I51.7 Cardiomegaly (principal); I36.1 Nonrheumatic tricuspid (valve) insufficiency
CPT/HCPCS: 93306

== ENCOUNTER → 2021-10-11 | Outpatient (CLI) | payer BC ==
[~2021-10-11] VITALS: Ht 170 cm; Wt 105.0 kg
[~2021-10-11] MED LIST changes: +REGADENOSON 0.4 MG/5 ML SYR (LEXISCAN) IV ONE
[2021-10-11] MEDS: CATHETER FLUSH 10 ML SYR IVP PRN ×2 (07:11→09:27)
[2021-10-11 09:26] VITALS: BP 157/63
--- NOTE | 2021-10-13 15:00 | STRESS TEST ---
DATE OF SERVICE: 10/11/2021 RESTING AND POST REGADENOSON TECHNETIUM-99M TETROFOSMIN SPECT CT IMAGING CLINICAL DIAGNOSIS: Coronary artery disease. Baseline images were carried out after injection of 10.91 mCi of technetium-99m Tetrofosmin. This was followed by 0.4 mg regadenoson and 28.8 mCi of technetium-99m Tetrofosmin for stress imaging. The electrocardiogram showed sinus rhythm at baseline. It did not change significantly with the regadenoson infusion. The patient tolerated the procedure well. Review of images at rest and following stress does not indicate any significant perfusion defects consistent with significant myocardial ischemia or infarction. Gated images show normal global left ventricular systolic function with normal regional wall motion. Left ventricular ejection fraction is calculated to be 81%. CONCLUSIONS: 1. No evidence of significant myocardial ischemia or infarction on this study. 2. Normal regional wall motion. 3. Normal to hyperdynamic left ventricular systolic function with a calculated ejection fraction of 81%. Job ID: [id number] DocumentID: [id number] Dictated Date: 10/13/2021 12:16:53 Newspaper Distributor Supervisor Date: 10/13/2021 14:59:42 Dictated By: DEION BURK MD, MA, FACP, FACC,
== END ==
LOC: CARD 07:30
PROVIDERS: ATTEND Internal Medicine Cardiovascular Disease
DX: I25.10 Atherosclerotic heart disease of native coronary artery without angina pectoris (principal)
CPT/HCPCS: 78452; 93017

== ENCOUNTER → 2022-02-22 | Outpatient (CLI) | payer BC ==
[~2022-02-22] MED LIST changes: -REGADENOSON 0.4 MG/5 ML SYR (LEXISCAN) IV ONE
--- NOTE | 2022-02-22 14:24 | Diagnostic Imaging Report ---
Indication: Right breast calcifications. Patient presents for additional views. Correlation is made with screening study from 10/04/2021 and 06/02/2019. Unilateral right 2-D and 3-D diagnostic mammography was performed. This included a repeat MLO view as well as conventional 90 degrees lateral views and magnification CC and ML views. Additional views show a cluster of indeterminate calcifications the upper central right breast at mid depth. These do show some pleomorphism. No associated soft tissue mass is detected. IMPRESSION: BI-RADS Category 4 Indeterminate calcification central right breast. While these could be owing to fat necrosis, DCIS cannot be entirely excluded and tissue sampling would be recommended. This would would be amenable to a stereotactic biopsy approach. ACR BI-RADS Category 4: Suspicious abnormality. Result letter will be mailed to the patient. Note: At least 10% of breast cancer is not imaged by mammography. Dictated by: Dictated on workstation # [id number]
== END ==
LOC: RAD 12:32
PROVIDERS: ATTEND Nurse Practitioner Family
DX: R92.1 Mammographic calcification found on diagnostic imaging of breast (principal)

== ENCOUNTER 2022-03-06 13:04 | Outpatient (CLI) | payer BC | END 2022-03-06 13:32 | LOC: SLEEP 13:04 | PROVIDERS: ATTEND Nurse Practitioner | DX: G47.33 Obstructive sleep apnea (adult) (pediatric) (principal); G47.19 Other hypersomnia; I10 Essential (primary) hypertension | CPT/HCPCS: G0399 ==

== ENCOUNTER → 2022-03-09 | Outpatient (CLI) | payer BC ==
[~2022-03-09] MED LIST changes: +LIDOCAINE 1% INJ 10 ML VIAL INJ ONE; +LIDOCAINE 1% INJ 10 ML VIAL ONE
[2022-03-09 13:09] VITALS: BP 130/67
[2022-03-09 13:41] VITALS: BP 129/69
--- NOTE | 2022-03-09 19:06 | Diagnostic Imaging Report ---
INDICATION: Right breast calcifications. EXAMINATION: Patient presents for stereotactic biopsy. PROCEDURE: Patient was brought to the stereotactic suite and placed in a chair in the sitting upright position. The right breast was positioned medial lateral. The calcifications in the central right breast were stereotactically targeted. The skin of the medial right breast was prepped and draped in the usual sterile fashion. A small amount of 1% lidocaine was utilized for local anesthesia. An 8 gauge needle was advanced from a mediolateral approach and placed per Stereotactic coordinates. All images were viewed on dedicated workstation. A total of four core samples were obtained utilizing an 8 gauge vacuum-assisted device. Specimen right radiograph demonstrates numerous calcifications within sample labeled #3 and #4. Marker clip was then deployed. 2D CC and ML mammography was performed demonstrating a marker clip which does show some slight medial migration. Needle was removed and hemostasis was obtained. Patient tolerated the procedure well. IMPRESSION: Successful stereotactic biopsy of right breast calcifications utilizing the vacuum-assisted device. Pathology results are currently pending. Dictated by: Dictated on workstation # [id number]
== END ==
LOC: RAD 12:55
PROVIDERS: ATTEND Family Medicine
DX: R92.1 Mammographic calcification found on diagnostic imaging of breast (principal)
CPT/HCPCS: 19081

== ENCOUNTER → 2022-03-21 | Outpatient (CLI) | payer BC ==
[~2022-03-21] MED LIST changes: -LIDOCAINE 1% INJ 10 ML VIAL INJ ONE; -LIDOCAINE 1% INJ 10 ML VIAL ONE
--- NOTE | 2022-03-21 09:37 | Diagnostic Imaging Report ---
PROCEDURE: MRI lumbar spine. TECHNIQUE: Multiplanar, multisequence MRI of the lumbar spine was performed without contrast. INDICATION: Chronic lower back pain. COMPARISON: None FINDINGS: For the purposes of this exam, last well-formed disc space is noted the L5-S1 level. Static alignment is maintained. There is no significant anterolisthesis or retrolisthesis. There is no evidence of jumped facets. Vertebral body heights are maintained. There is no acute fracture. Evaluation marrow signal demonstrates small amount of edematous type signal within the inferior endplate of L4. This appears to be epicentered around a Schmorl's node. Benign L1 hemangioma is also noted. Note is also made of mild multilevel intervertebral disc height loss. Visualized portions of distal cord are unremarkable. Conus terminates approximately the L1-L2 level. No abnormal intrathecal filling defects are seen. Pre and paravertebral soft tissue structures are unremarkable. Axial images demonstrate the following: T12-L1 through L3-L4: There is no large disc bulge or focal protrusion. There is no significant spinal canal or neural foraminal stenosis. L4-L5: There is central posterior disc protrusion superimposed on broad-based posterior disc bulge. There is also bilateral ligamentum flavum laxity and facet arthropathy. As a result, there is mild stenosis of the spinal canal and bilateral neural foramen. L5-S1: There is no large disc bulge or focal protrusion. There is bilateral facet arthropathy. There is probable synovial cyst anterior to the right facet. It measures 5 mm in diameter. As a result, there is mild narrowing of the spinal canal and bilateral neural foramen. IMPRESSION: 1. Mild degenerative changes primarily involving the lower lumbar spine, but no significant spinal canal or neural foraminal stenosis. 2. No acute fracture or dislocation. Dictated by: Dictated on workstation # [id number]
--- NOTE | 2022-03-21 09:55 | Diagnostic Imaging Report ---
EXAMINATION: Lumbosacral spine 2 or 3 views HISTORY: Back pain. Radiculopathy. COMPARISON: MRI lumbar spine performed the same date. FINDINGS: There is no acute fracture or dislocation of the lumbar spine. No dynamic instability is seen on flexion and extension views. No focal osseous lesion. IMPRESSION: 1. No acute fracture or dislocation in the lumbar spine. No evidence of dynamic instability. Dictated by: Dictated on workstation # [id number]
== END ==
LOC: RAD 08:00
PROVIDERS: ATTEND Pain Medicine Interventional Pain Medicine
DX: M47.26 Other spondylosis with radiculopathy, lumbar region (principal)
CPT/HCPCS: 72100; 72148

== ENCOUNTER → 2022-06-06 | Outpatient (CLI) | payer BC ==
[~2022-06-06] VITALS: Ht 170 cm; Wt 104.5 kg
[~2022-06-06] MED LIST changes: +DENOSUMAB 60 MG/1 ML (PROLIA) SQ SCH
[2022-06-06 09:41] VITALS: BP 107/66
== END ==
LOC: SDC 09:14
PROVIDERS: ATTEND Family Medicine
DX: M81.0 Age-related osteoporosis without current pathological fracture (principal)
CPT/HCPCS: 96372

== ENCOUNTER → 2022-12-05 | Outpatient (CLI) | payer BC ==
[2022-12-05 10:05] VITALS: BP 125/64
== END ==
LOC: SDC 09:43
PROVIDERS: ATTEND Family Medicine
DX: M81.0 Age-related osteoporosis without current pathological fracture (principal)
CPT/HCPCS: 96372

== ENCOUNTER → 2022-12-28 | Outpatient (CLI) | payer BC ==
[~2022-12-28] MED LIST changes: -DENOSUMAB 60 MG/1 ML (PROLIA) SQ SCH
== END ==
LOC: CARD 09:12
PROVIDERS: ATTEND Internal Medicine Cardiovascular Disease
DX: I27.21 Secondary pulmonary arterial hypertension (principal)
CPT/HCPCS: 93306